=== PATIENT | female | born 1955 | race African-American/Black ===

== ENCOUNTER 2020-03-05 19:37 | Inpatient (IN) | payer BC, MEDICAID ==
[~2020-03-05] VITALS: Ht 172.7 cm; Wt 77.0 kg
[2020-03-05] MEDS ORDERED: SODIUM CHLORIDE 0.9% 1,000 ML IV ONE (20:02)
[2020-03-05] MEDS ORDERED: AZITHROMYCIN 500MG/ 250ML 250 ML IV ONE (20:15)
[2020-03-05] MEDS ORDERED: ONDANSETRON HCL 4 MG/2 ML VIAL IV PRN (23:45)
[2020-03-05] MEDS ORDERED: DEXTROSE (50%) 50ML SYRG IV PRN (23:45)
[2020-03-05] MEDS ORDERED: HYDROcodone-ACET 5/325MG TAB PO PRN (23:45)
[2020-03-05] MEDS ORDERED: MORPHINE SULF INJ 2 MG/ML SYRINGE 1ML IV PRN ×2 (23:45)
[2020-03-05] MEDS ORDERED: ACETAMINOPHEN 325 MG TAB PO PRN (23:45)
[2020-03-05] MEDS ORDERED: DOCUSATE SOD 100 MG CAP PO PRN (23:45)
[2020-03-05] MEDS ORDERED: NITROGLYCERIN 0.4 MG SL TAB SL PRN (23:45)
[2020-03-05] MEDS ORDERED: ACETAMINOPHEN 500 MG TAB PO PRN (23:45)
[2020-03-06 01:35] LABS: Basophils # (auto) 0.1 10 ^3/uL (0-0.2); Basophils % (auto) 1.2 % (0.0-2.0); Eosinophils # (auto) 0 10 ^3/uL (0-0.8); Eosinophils % (auto) 0.5 % (0.0-7.0); Hemoglobin 12.7 g/dL (12.2-16.2); Lymphocytes # (auto) 2.1 10 ^3/uL (0.4-5.4); Lymphocytes % (auto) 22.9 % (10.0-50.0); Mean Corpuscular Hemoglobin 27.4 pg (28.0-32.0); Mean Corpuscular Hgb Conc. 32.7 g/dL (32.0-36.0); Mean Corpuscular Volume 83.9 fL (80.0-100.0); Monocytes # (auto) 0.7 10 ^3/uL (0-1.3); Monocytes % (auto) 7.8 % (0.0-12.0); Neutrophils # (auto) 6.1 10 ^3/uL (1.6-8.6); Neutrophils % (auto) 67.6 % (37.0-80.0); Nucleated Red Blood Cells % 0.1 %; Platelet Count (auto) 480 10^3/uL (140-450); Red Blood Cells 4.64 10^6/uL (4.0-5.20); Red Cell Distribution Width 12.9 % (11.8-14.3)
[2020-03-06 01:47] LABS: Anion Gap 13 (5-15); BUN/Creatinine Ratio 26.7; Blood Urea Nitrogen 28 mg/dL (7-18); Calcium 9.2 mg/dL (8.5-10.1); Carbon Dioxide 25 mmol/L (21-32); Chloride 98 mmol/L (98-107); GFR African American 67 mL/min; GFR Non-African American 56 mL/min; Glucose 143 mg/dL (74-106); Potassium 3.4 mmol/L (3.5-5.1); Sodium 136 mmol/L (136-145)
[2020-03-06 01:50] LABS: Alanine Aminotransferase 46 U/L (13-56); Alkaline Phosphatase 91 U/L (45-117); Aspartate Aminotransferase 47 U/L (15-37); Bilirubin, Total 0.5 mg/dL (0.2-1.0); Total Protein 8.8 g/dL (6.4-8.2)
[2020-03-06] MEDS: ACCU-CHEK COMFORT CURVE STRIP VI SCH ×3 (06:00→17:27)
[2020-03-06] MEDS ORDERED: ALBUTEROL SULF HFA 90MCG INH 200DOSE IN SCH (06:00)
[2020-03-06] MEDS: InsuLIN REG 1unit/0.01ml Soln (100units/ml) SC SCH ×3 (06:00→17:28)
[2020-03-06] MEDS: ASCORBIC ACID 1,000 MG TAB PO SCH (09:09)
[2020-03-06] MEDS: CHOLECALCIFEROL (VITD3) 1,000IU=25mCg TAB PO SCH (09:09)
[2020-03-06] MEDS: DOXYCYCLINE 100 MG TAB/CAP PO SCH ×2 (09:09→22:46)
[2020-03-06] MEDS: ZINC SULFATE 220mg CAP or TAB PO SCH (09:09)
[2020-03-06] MEDS: SODIUM CHLORIDE 0.9% 1,000 ML IV SCH (09:16)
[2020-03-06] MEDS ORDERED: ENOXAPARIN SOD 40 MG/0.4 ML SYRINGE SC SCH (10:00)
[2020-03-06 10:14] LABS: Urine Bacteria NONE SEEN /hpf (None Seen); Urine Blood Negative /uL (Negative); Urine Hyaline Cast FEW /lpf (0 - 2); Urine Specific Gravity 1.021 (1.001-1.035); Urine WBC 1 /hpf (0 - 5)
[2020-03-06 11:20] LABS: Basophils # (auto) 0.1 10 ^3/uL (0-0.2); Eosinophils # (auto) 0.1 10 ^3/uL (0-0.8); Hematocrit 37.7 % (36.0-46.0); Hemoglobin 12.2 g/dL (12.2-16.2); Lymphocytes # (auto) 1.8 10 ^3/uL (0.4-5.4); Lymphocytes % (auto) 26.3 % (10.0-50.0); Mean Corpuscular Hemoglobin 27.8 pg (28.0-32.0); Mean Corpuscular Hgb Conc. 32.4 g/dL (32.0-36.0); Mean Corpuscular Volume 85.8 fL (80.0-100.0); Monocytes # (auto) 0.7 10 ^3/uL (0-1.3); Monocytes % (auto) 9.9 % (0.0-12.0); Neutrophils # (auto) 4.1 10 ^3/uL (1.6-8.6); Neutrophils % (auto) 61.8 % (37.0-80.0); Nucleated Red Blood Cells % 0.2 %; Platelet Count (auto) 450 10^3/uL (140-450); Red Blood Cells 4.39 10^6/uL (4.0-5.20); Red Cell Distribution Width 12.9 % (11.8-14.3); White Blood Cell 6.7 10^3/uL (4.4-10.8)
[2020-03-06 11:35] LABS: INR 1.04 (0.9-1.15); Partial Thromboplastin Time 28.8 sec (23.64-32.05)
[2020-03-06 11:36] LABS: Anion Gap 8 (5-15); Blood Urea Nitrogen 27 mg/dL (7-18); Calcium 9.3 mg/dL (8.5-10.1); Carbon Dioxide 27 mmol/L (21-32); Chloride 98 mmol/L (98-107); Glucose 140 mg/dL (74-106); Sodium 133 mmol/L (136-145)
[2020-03-06 11:45] LABS: Alanine Aminotransferase 50 U/L (13-56); Alkaline Phosphatase 89 U/L (45-117); Aspartate Aminotransferase 66 U/L (15-37); BUN/Creatinine Ratio 26.2; Bilirubin, Total 0.6 mg/dL (0.2-1.0); GFR African American 69 mL/min; GFR Non-African American 57 mL/min; Lactate Dehydrogenase 349 U/L (84-246); Total Protein 8.8 g/dL (6.4-8.2)
[2020-03-06] MEDS ORDERED: MET50T PO (15:35)
[2020-03-06] MEDS ORDERED: LOSA-39 PO (15:35)
[2020-03-06] MEDS ORDERED: VENL-192 PO (15:35)
[2020-03-06] MEDS ORDERED: CHLO25TA22 PO (15:35)
[2020-03-06] MEDS ORDERED: CITA-73 PO (15:35)
[2020-03-06] MEDS ORDERED: GLIP10TA9 PO (15:35)
[2020-03-06] MEDS ORDERED: ASPI-404 PO (15:35)
[2020-03-06] MEDS ORDERED: METF-370 PO (15:35)
[2020-03-06] MEDS ORDERED: ENOXAPARIN SOD 40 MG/0.4 ML SYRINGE SC ONE (16:00)
[2020-03-06] MEDS ORDERED: POTASSIUM CHL 20 Meq TABLET PO ONE (16:15)
[2020-03-06 17:00] VITALS: BP 154/92
[2020-03-06 22:00] VITALS: BP 154/102
[2020-03-06] MEDS: ENOXAPARIN SOD 80 MG/0.8ML SYRINGE SC SCH (22:46)
[2020-03-06] MEDS: METOPROLOL TARTRATE 25 MG TAB PO SCH (22:47)
[2020-03-07] MEDS: ACCU-CHEK COMFORT CURVE STRIP VI SCH ×5 (00:08→23:59)
[2020-03-07] MEDS: hydrALAZINE HCL 20 MG/ML VL IV PRN ×3 (00:08→17:11)
[2020-03-07 01:25] VITALS: BP 146/75
[2020-03-07 05:00] VITALS: BP 160/94
[2020-03-07] MEDS: InsuLIN REG 1unit/0.01ml Soln (100units/ml) SC SCH ×4 (06:10→17:11)
[2020-03-07 06:36] LABS: Albumin 2.7 g/dL (3.4-5.0); Calcium 9.1 mg/dL (8.5-10.1); Magnesium 1.5 mg/dL (1.6-2.6); Potassium 3.8 mmol/L (3.5-5.1)
[2020-03-07 06:40] LABS: BUN/Creatinine Ratio 17.9; Bilirubin, Total 0.5 mg/dL (0.2-1.0)
[2020-03-07 09:00] VITALS: BP 112/75
[2020-03-07] MEDS: SODIUM CHLORIDE 0.9% 1,000 ML IV SCH (09:12)
[2020-03-07] MEDS: ENOXAPARIN SOD 80 MG/0.8ML SYRINGE SC SCH ×2 (09:13→22:22)
[2020-03-07] MEDS: ZINC SULFATE 220mg CAP or TAB PO SCH (09:13)
[2020-03-07] MEDS: DOXYCYCLINE 100 MG TAB/CAP PO SCH ×2 (09:13→22:23)
[2020-03-07] MEDS: METOPROLOL TARTRATE 25 MG TAB PO SCH ×2 (09:13→22:23)
[2020-03-07] MEDS: CHOLECALCIFEROL (VITD3) 1,000IU=25mCg TAB PO SCH (09:13)
[2020-03-07] MEDS: ASCORBIC ACID 1,000 MG TAB PO SCH (09:14)
[2020-03-07 13:00] VITALS: BP 105/60
[2020-03-07 17:00] VITALS: BP 164/97
[2020-03-07] MEDS: MAGNESIUM SULFATE 1GM/100ML 100 ML IV SCH ×2 (17:10→17:12)
[2020-03-07 22:00] VITALS: BP 116/59
[2020-03-08 05:00] VITALS: BP 125/84
[2020-03-08] MEDS: InsuLIN REG 1unit/0.01ml Soln (100units/ml) SC SCH ×4 (05:56→17:40)
[2020-03-08] MEDS: ACCU-CHEK COMFORT CURVE STRIP VI SCH ×3 (05:56→17:40)
[2020-03-08 07:03] LABS: Albumin 2.5 g/dL (3.4-5.0); Potassium 3.5 mmol/L (3.5-5.1)
[2020-03-08 07:08] LABS: Bilirubin, Direct 0.2 mg/dL (0-0.2); Bilirubin, Total 0.4 mg/dL (0.2-1.0); Total Protein 7.5 g/dL (6.4-8.2)
[2020-03-08] MEDS: ZINC SULFATE 220mg CAP or TAB PO SCH (09:31)
[2020-03-08] MEDS: DOXYCYCLINE 100 MG TAB/CAP PO SCH (09:32)
[2020-03-08] MEDS: CHOLECALCIFEROL (VITD3) 1,000IU=25mCg TAB PO SCH (09:32)
[2020-03-08] MEDS: ENOXAPARIN SOD 80 MG/0.8ML SYRINGE SC SCH (09:32)
[2020-03-08] MEDS: ASCORBIC ACID 1,000 MG TAB PO SCH (09:32)
[2020-03-08] MEDS: METOPROLOL TARTRATE 25 MG TAB PO SCH (09:32)
[2020-03-08 09:41] VITALS: BP 150/83
[2020-03-08 12:46] VITALS: BP 98/68
[2020-03-08] MEDS ORDERED: DEX4T PO (14:12)
[2020-03-08] MEDS ORDERED: PANT40TA2 PO (14:12)
[2020-03-08] MEDS ORDERED: DOXY-286 PO (14:12)
[2020-03-08] MEDS ORDERED: ZINC220T6 PO (14:12)
[2020-03-08] MEDS ORDERED: ASCO10003 PO (14:12)
[2020-03-08 16:14] VITALS: BP 98/52
[2020-03-08 16:47] VITALS: BP 165/92
== END 2020-03-08 18:00 | disposition home or self-care (01) | DRG 177 ==
LOC: ER 19:39 → TELE 19:40 → TELE-E-ADS 03-06 14:20
PROVIDERS: ADMIT Hospitalist; ATTEND Internal Medicine
DX: U07.1 COVID-19 (principal); N17.0 Acute kidney failure with tubular necrosis; E11.22 Type 2 diabetes mellitus with diabetic chronic kidney disease; I12.9 Hypertensive chronic kidney disease with stage 1 through stage 4 chronic kidney disease, or unspecified chronic kidney disease; E87.6 Hypokalemia; N18.9 Chronic kidney disease, unspecified; E11.21 Type 2 diabetes mellitus with diabetic nephropathy; I70.0 Atherosclerosis of aorta; F32.9 Major depressive disorder, single episode, unspecified; R79.89 Other specified abnormal findings of blood chemistry; J06.9 Acute upper respiratory infection, unspecified; Z86.73 Personal history of transient ischemic attack (TIA), and cerebral infarction without residual deficits
CPT/HCPCS: 36415; 71045; 80053; 80061; 80076; 81001; 82728; 82962; 83036; 83615; 83735; 83880; 84132; 84443; 84484; 85025; 85379; 85610; 85730; 86141; 87040; 87070; 87804; 87880; 93005; G0378; J1815

== ENCOUNTER 2022-01-19 09:52 | Emergency (ER) | payer OTHER, MEDICAID ==
[~2022-01-19] VITALS: Ht 170.2 cm; Wt 81.6 kg
[~2022-01-19 09:52] MED LIST: ASCO10003 PO; ASPI-543 PO; CHLO25TA2 PO; CITA-73 PO; DOXY-286 PO; GLIP10TA9 PO; LOSA-39 PO; MET50T PO; METF-370 PO; VENL-192 PO; ZINC220T6 PO
[2022-01-19] MEDS ORDERED: ACETAMINOPHEN 500 MG TAB PO ONE (10:45)
[2022-01-19 11:02] LABS: Basophils # (auto) 0.1 10 ^3/uL (0-0.2); Basophils % (auto) 0.7 % (0.0-2.0); Eosinophils # (auto) 0.1 10 ^3/uL (0-0.8); Eosinophils % (auto) 0.8 % (0.0-7.0); Hematocrit 32.9 % (36.0-46.0); Hemoglobin 11.1 g/dL (12.2-16.2); Lymphocytes # (auto) 2.2 10 ^3/uL (0.4-5.4); Lymphocytes % (auto) 27.2 % (10.0-50.0); Mean Corpuscular Hemoglobin 28.7 pg (28.0-32.0); Mean Corpuscular Hgb Conc. 33.8 g/dL (32.0-36.0); Mean Corpuscular Volume 84.9 fL (80.0-100.0); Monocytes # (auto) 0.7 10 ^3/uL (0-1.3); Neutrophils # (auto) 5.2 10 ^3/uL (1.6-8.6); Neutrophils % (auto) 63.3 % (37.0-80.0); Nucleated Red Blood Cells % 0.1 %; Red Blood Cells 3.88 10^6/uL (4.0-5.20); Red Cell Distribution Width 12.4 % (11.8-14.3); White Blood Cell 8.3 10^3/uL (4.4-10.8)
[2022-01-19 11:29] LABS: Albumin 3.3 g/dL (3.4-5.0); Calcium 9.3 mg/dL (8.5-10.1); Magnesium 2.4 mg/dL (1.6-2.6); Potassium 3.8 mmol/L (3.5-5.1)
[2022-01-19 11:33] LABS: BUN/Creatinine Ratio 24.8; Bilirubin, Total 0.4 mg/dL (0.2-1.0)
[2022-01-19 12:05] VITALS: BP 100/58
[2022-01-19] MEDS ORDERED: ACET-1080 PO (12:55)
[2022-01-19 13:21] LABS: Urine Bacteria MANY /hpf (None Seen); Urine Blood Negative /uL (Negative); Urine Hyaline Cast FEW /lpf (0 - 2); Urine Mucus FEW (None Seen); Urine Specific Gravity 1.015 (1.001-1.035); Urine WBC 5 /hpf (0 - 5)
== END 2022-01-19 13:04 | disposition home or self-care (01) ==
LOC: ER 09:52
DX: R51.9 Headache, unspecified (principal); M48.02 Spinal stenosis, cervical region; I12.9 Hypertensive chronic kidney disease with stage 1 through stage 4 chronic kidney disease, or unspecified chronic kidney disease; E11.22 Type 2 diabetes mellitus with diabetic chronic kidney disease; N18.9 Chronic kidney disease, unspecified; Z86.73 Personal history of transient ischemic attack (TIA), and cerebral infarction without residual deficits; Z79.82 Long term (current) use of aspirin; Z79.899 Other long term (current) drug therapy; Z79.2 Long term (current) use of antibiotics
CPT/HCPCS: 36415; 70450; 72125; 80053; 81001; 83735; 84484; 85025; 93005

== ENCOUNTER → 2023-09-24 | Outpatient (CLI) | payer OTHER ==
[~2023-09-24] MED LIST changes: +ACET-1080 PO; -LOSA-39 PO; +LOSA100T58 PO
[2023-09-24 10:55] LABS: Basophils # (auto) 0 10 ^3/uL (0-0.2); Basophils % (auto) 0.5 % (0.0-2.0); Eosinophils # (auto) 0.1 10 ^3/uL (0-0.8); Eosinophils % (auto) 0.9 % (0.0-7.0); Hematocrit 35.3 % (36.0-46.0); Hemoglobin 11.5 g/dL (12.2-16.2); Lymphocytes % (auto) 30.7 % (10.0-50.0); Mean Corpuscular Hemoglobin 29.3 pg (28.0-32.0); Mean Corpuscular Hgb Conc. 32.7 g/dL (32.0-36.0); Mean Corpuscular Volume 89.6 fL (80.0-100.0); Monocytes # (auto) 0.7 10 ^3/uL (0-1.3); Monocytes % (auto) 7.6 % (0.0-12.0); Neutrophils # (auto) 5.9 10 ^3/uL (1.6-8.6); Neutrophils % (auto) 60.3 % (37.0-80.0); Red Blood Cells 3.94 10^6/uL (4.0-5.20); Red Cell Distribution Width 12.5 % (11.8-14.3); White Blood Cell 9.8 10^3/uL (4.4-10.8)
[2023-09-24 11:04] LABS: Urine Blood Negative /uL (Negative); Urine Clarity Clear (Clear); Urine Color Yellow (Yellow); Urine Protein, UAD Negative (Negative); Urine Specific Gravity 1.011 (1.001-1.035); Urine Urobilinogen Normal (Negative); Urine pH 7.5 (5.0-8.0)
[2023-09-24 11:26] LABS: Alanine Aminotransferase 12 U/L (7-40); Albumin 4.4 g/dL (3.2-4.8); Alkaline Phosphatase 105 U/L (46-116); Anion Gap 7 (5-15); Aspartate Aminotransferase 17 U/L (13-40); BUN/Creatinine Ratio 13.4 (10.0-20.0); Blood Urea Nitrogen 11 mg/dL (9-23); Calcium 9.8 mg/dL (8.5-10.1); Carbon Dioxide 31 mmol/L (20-30); Chloride 101 mmol/L (98-107); Cholesterol 144 mg/dL (< 200); Glucose 133 mg/dL (74-106); HDL Cholesterol 57 mg/dL (40-59); LDL Cholesterol 67 mg/dL (< 100); Potassium 3.4 mmol/L (3.5-5.1); Sodium 139 mmol/L (136-145); Triglycerides 39 mg/dL (< 150)
[2023-09-24 11:27] LABS: Bilirubin, Total 0.4 mg/dL (0.2-1.0); Total Protein 7.3 g/dL (5.7-8.2)
[2023-09-24 11:39] LABS: Uric Acid 6.1 mg/dL (3.1-7.8)
== END | disposition home or self-care (01) ==
LOC: LAB 10:16
PROVIDERS: ATTEND Family Medicine
DX: Z12.11 Encounter for screening for malignant neoplasm of colon (principal); Z00.01 Encounter for general adult medical examination with abnormal findings; E11.65 Type 2 diabetes mellitus with hyperglycemia; E11.42 Type 2 diabetes mellitus with diabetic polyneuropathy; I10 Essential (primary) hypertension; E78.5 Hyperlipidemia, unspecified; F33.9 Major depressive disorder, recurrent, unspecified; F41.1 Generalized anxiety disorder
CPT/HCPCS: 36415; 80053; 80061; 81003; 82043; 82270; 83036; 84443; 84550; 85025

== ENCOUNTER → 2024-03-12 | Outpatient (CLI) | payer MEDICAID ==
[~2024-03-12] MED LIST changes: +LOSA-535 PO; -LOSA100T58 PO
== END | disposition home or self-care (01) ==
LOC: XYW 10:20
PROVIDERS: ATTEND Student in an Organized Health Care Education/Training Program
DX: I70.203 Unspecified atherosclerosis of native arteries of extremities, bilateral legs (principal); I77.9 Disorder of arteries and arterioles, unspecified
CPT/HCPCS: 93925

== ENCOUNTER → 2024-06-06 | Outpatient (CLI) | payer MEDICAID ==
[~2024-06-06] MED LIST changes: +APIX2.5T PO; +ATOR10TA52 PO; +CALC0.0021 EX; +CLOB0.055 TOP; +CLOP75TA28 PO; +EMPA1TAB3 PO; +GABA-1250 PO; +KETO2CRE4 TOP
--- NOTE | 2024-06-06 13:03 | DVHSR ---
APPROVED REPORT EXAM: Two-dimensional and M-mode echocardiogram with Doppler and color Doppler. INDICATION Syncope RISK FACTORS Height: 67, Weight: 165 Diabetes DIMENSIONS LVDd2.5 (3.8-5.7cm)LA (2D)3.3 (1.9-4.0cm)Aortic Root3.4 (2.0-3.7cm) LVDs1.5 (2.5-4.0cm)LA (MM) (1.9-4.0cm)Aortic Cusp Exc1.1 (1.5-2.0cm) EF (%) 71.8 (55-70%)Rt. Atrium (1.9-4.0cm)Asc. Aorta cm Mitral Valve MitralMitral Stenosis E wave0.90m/sMV Mean GR.mmHg A wave1.28m/sMV Peak GR.mmHg E/A ratio0.72D MVAcm2 DECEL [id number] 1/2 Timems Aortic Valve Aortic ValveAortic Stenosis V11.12m/Stacy Mean GR.4mmHg V21.29m/Stacy Peak GR.7mmHg LVOT Diameter1.4 (1.8-2.4cm)Doppler AVA1.34cm2 Pulmonic Valve V20.79m/s Tricuspid Valve [id number] Other Information Technically limited study due to body habitus. Conclusion Technically good study. Sinus rhythm. [id number] aortic root enlargement. An echodensity at the level of the left coronary cusps is noted. Mild thickening of the right daven[place] ry cusp. There appears to be notable limitation in mobility of the left coronary cusp with mild calc ification.. Mild calcification of the mitral valve. Adequate excursion of the leaflets. Left ventricular function is preserved at 60% with normal RV function. Dopplers unremarkable. No pericardial effusion masses or vegetations.
== END | disposition home or self-care (01) ==
LOC: XYW 10:00
PROVIDERS: ATTEND Internal Medicine
DX: I08.0 Rheumatic disorders of both mitral and aortic valves (principal); E11.9 Type 2 diabetes mellitus without complications
CPT/HCPCS: 93306

== ENCOUNTER → 2024-07-09 | Outpatient (CLI) | payer MEDICAID ==
[~2024-07-09] MED LIST changes: -APIX2.5T PO; -ATOR10TA52 PO; -CALC0.0021 EX; -CLOB0.055 TOP; -CLOP75TA28 PO; -EMPA1TAB3 PO; -GABA-1250 PO; -KETO2CRE4 TOP
[2024-07-09 11:31] LABS: Alanine Aminotransferase 14 U/L (7-40); Alkaline Phosphatase 109 U/L (46-116); Anion Gap 5 (5-15); BUN/Creatinine Ratio 19.4 (10.0-20.0); Blood Urea Nitrogen 19 mg/dL (9-23); Calcium 9.4 mg/dL (8.7-10.4); Carbon Dioxide 25 mmol/L (20-31); Chloride 106 mmol/L (98-107); Glucose 135 mg/dL (74-106); LDL Cholesterol 61 mg/dL (< 100); Potassium 4.4 mmol/L (3.5-5.1); Sodium 136 mmol/L (136-145); Triglycerides 57 mg/dL (< 150)
[2024-07-09 11:32] LABS: Albumin 4.1 g/dL (3.2-4.8); Aspartate Aminotransferase 11 U/L (13-40); Bilirubin, Total 0.3 mg/dL (0.2-1.0); Cholesterol 132 mg/dL (< 200); HDL Cholesterol 53 mg/dL (40-59)
[2024-07-09 11:48] LABS: Creatinine, Urine 32.78 mg/dL (30.0-125.0)
[2024-07-09 11:51] LABS: Micro Albumin < 3.0 mg/L (<30.0)
== END | disposition home or self-care (01) ==
LOC: LAB 10:36
PROVIDERS: ATTEND Family Medicine
DX: I12.9 Hypertensive chronic kidney disease with stage 1 through stage 4 chronic kidney disease, or unspecified chronic kidney disease (principal); E11.22 Type 2 diabetes mellitus with diabetic chronic kidney disease; N18.9 Chronic kidney disease, unspecified; E78.2 Mixed hyperlipidemia; E11.65 Type 2 diabetes mellitus with hyperglycemia
CPT/HCPCS: 36415; 80053; 80061; 82043; 82570; 83036

== ENCOUNTER → 2024-07-15 | Outpatient (CLI) | payer MEDICAID ==
[~2024-07-15] VITALS: Ht 170.2 cm; Wt 77.1 kg
[2024-07-15] MEDS: REGADENOSON 0.4 MG/5 ML SYRG IV ONE ×2 (10:02→10:08)
--- NOTE | 2024-07-15 11:28 | DVHSR ---
APPROVED REPORT Exam: Nuclear Stress Test Indication: NEAR SYNCOPE Stress Tech: Judit Gross BMI: 0 Medical History Medical History: Bilateral Femoral Artery Stenosis, TIA, DM, HTN, Former smoker Stress Test Details Stress Test: Pharmacologic stress testing performed using 0.4 mg of regadenoson per 5 mL given IV ov er 10 seconds. HR Resting HR: 57 bpmMax Heart Rate (APMHR): 150.361686 bpm Max HR Achieved: 75 bpmTarget HR (85% APMHR): 127.292411 bpm % of APMHR: 50.00 Recovery HR: 64 bpm BP Resting BP: 137/75 mmHg Recovery BP: 145/74 mmHg ECG Resting ECG: Sinus Bradycardia Clinical Reason for Termination: Completed protocol Stress ECG Conclusion Resting ECG showed normal normal sinus rhythm. At peak stress level no dynamic EKG changes was noted to suggest ischemia. Resting images shows near homogeneous uptake of radioactive tracer throughout the myocardium without evidence of myocardial infarction. Stress images shows normal homogeneous uptake of radioactive tracer throughout the myocardium without evidence of myocardial ischemia. Well-preserved left ventricular systolic function is 77%. Impression: Negative stress test for ischemia, low risk study. NM EXAM: Myocardial Perfusion REST/STRESS Imaging Protocol: Rest Tc-99m/Stress Tc-99m 1 day Resting Data Rest SPECT myocardial perfusion imaging was performed in supine position 60 minutes following the int ravenous injection of 11.9 mCi of Tc-99m Sestamibi. Time of rest injection: 0900 Time of rest imagin Administration Route: IV Administration Site: Left AC Pharmacologic Stress Pharmacologic stress test was performed by injecting Regadenoson 0.4 mg IV push followed by the intra venous injection of 35 mCi of Tc-99m Sestamibi. Time of stress injection: 1009 Time of stress imagin Administration Route: IV Administration Site: Left AC Gated Stress SPECT was performed 60 minutes after stress injection. The images were gated to evaluate regional wall motion and calculate left ventricular ejection fracti on. Stress only was performed in the Supine position. Nuclear Conclusion ECG Findings: negative for ischemia Clinical Findings: negative for ischemia Nuclear Findings: negative for ischemia Exercise Capacity: not assessed Left Ventricular Function: normal Risk Study: low Resting ECG showed normal normal sinus rhythm. At peak stress level no dynamic EKG changes was noted to suggest ischemia. Resting images shows near homogeneous uptake of radioactive tracer throughout the myocardium without evidence of myocardial infarction. Stress images shows normal homogeneous uptake of radioactive tracer throughout the myocardium without evidence of myocardial ischemia. Well-preserved left ventricular systolic function is 77%. Impression: Negative stress test for ischemia, low risk study.
== END | disposition home or self-care (01) ==
LOC: XYW 08:35
PROVIDERS: ATTEND Internal Medicine
DX: R55 Syncope and collapse (principal); I73.9 Peripheral vascular disease, unspecified; E11.9 Type 2 diabetes mellitus without complications; I10 Essential (primary) hypertension; Z86.73 Personal history of transient ischemic attack (TIA), and cerebral infarction without residual deficits; Z87.891 Personal history of nicotine dependence
CPT/HCPCS: 78452; 93017; A9500; J2785

== ENCOUNTER 2024-07-30 06:50 | Inpatient (IN) | payer MEDICAID ==
[2024-07-29 12:16] LABS: Basophils # (auto) 0 10 ^3/uL (0-0.2); Basophils % (auto) 0.3 % (0.0-2.0); Eosinophils # (auto) 0.1 10 ^3/uL (0-0.8); Eosinophils % (auto) 0.5 % (0.0-7.0); Hematocrit 37.5 % (36.0-46.0); Hemoglobin 12.1 g/dL (12.2-16.2); Lymphocytes % (auto) 28.3 % (10.0-50.0); Mean Corpuscular Hemoglobin 28.5 pg (28.0-32.0); Mean Corpuscular Hgb Conc. 32.2 g/dL (32.0-36.0); Mean Corpuscular Volume 88.5 fL (80.0-100.0); Monocytes # (auto) 0.7 10 ^3/uL (0-1.3); Monocytes % (auto) 6.7 % (0.0-12.0); Neutrophils # (auto) 6.7 10 ^3/uL (1.6-8.6); Neutrophils % (auto) 64.2 % (37.0-80.0); Platelet Count (auto) 276 10^3/uL (140-450); Red Blood Cells 4.24 10^6/uL (4.0-5.20); Red Cell Distribution Width 13.3 % (11.8-14.3); White Blood Cell 10.5 10^3/uL (4.4-10.8)
[2024-07-29 12:21] LABS: INR 0.97 (0.9-1.15); Partial Thromboplastin Time 26.5 SEC (24.5-34.5); Prothrombin Time 10.3 sec (9.3-11.8)
[2024-07-29 12:36] LABS: Alanine Aminotransferase 10 U/L (7-40); Albumin 4.3 g/dL (3.2-4.8); Alkaline Phosphatase 101 U/L (46-116); Anion Gap 8 (5-15); Aspartate Aminotransferase 13 U/L (13-40); Blood Urea Nitrogen 18 mg/dL (9-23); Calcium 10.6 mg/dL (8.7-10.4); Carbon Dioxide 28 mmol/L (20-31); Chloride 102 mmol/L (98-107); Glucose 98 mg/dL (74-106); Potassium 4.2 mmol/L (3.5-5.1); Sodium 138 mmol/L (136-145)
[2024-07-29 12:37] LABS: Bilirubin, Total 0.4 mg/dL (0.2-1.0); Total Protein 7.3 g/dL (5.7-8.2)
[2024-07-30] VITALS (21 sets, daily range): BP systolic 92–193; BP diastolic 49–90; PULSE 55–67; RESP 12–18; TEMP 97.4–97.5; O2SAT 93–99
[~2024-07-30] VITALS: Ht 170.2 cm; Wt 78.9 kg
[~2024-07-30 06:50] MED LIST changes: -ASCO10003 PO; +ATOR10TA52 PO; +CALC0.0021 EX; +CLOB0.055 TOP; -DOXY-286 PO; +EMPA1TAB3 PO; +GABA-1250 PO; +KETO2CRE4 TOP; -ZINC220T6 PO
[2024-07-30] MEDS: IODIXANOL 320MG/ML 100ML BTL IV ONE ×4 (07:22→10:20)
[2024-07-30] MEDS: fentaNYL CITRATE 100 MCG/2 ML VL ONE (08:57)
[2024-07-30] MEDS: ANGIOMAX 250 MG VIAL IV ONE ×2 (08:57→10:15)
[2024-07-30] MEDS: MIDAZOLAM HCL 2MG/2ML 2ml VIAL (1mg/ml) ONE (08:58)
[2024-07-30] MEDS: LIDOCAINE 2%HCL (LOCAL ANESTH.) INJ 20ML MDV ONE ×2 (08:58→10:35)
[2024-07-30] MEDS: SODIUM CHL 0.9% 50 ML ONE ×2 (08:58→10:15)
[2024-07-30] MEDS: GELATIN 1 SPONGE SIZE 50 TOP ONE (10:20)
[2024-07-30] MEDS ORDERED: SOD CHL 0.45% 1,000 ML IV SCH (11:15)
--- NOTE | 2024-07-30 11:28 | DVHOP2 ---
Operative Report - 2 Report Details Date: 07/30/24 Preop Diagnosis: Peripheral vascular disease Postop Diagnosis: Peripheral vascular disease Surgeon: Zelda Jo MD Anesthesiologist: Conscious sedation Anesthesia: Mac, Local Consent: The patient was informed of the risks and benefits of the procedure. These include but are not limited to complications of anesthesia, postoperative infection, incomplete relief of symptoms, recurrence of symptoms, damage to blood vessels, nerves and tendons, deep venous thrombosis, pulmonary embolism and possible need for repeat surgery in the future. Complications: No complications Estimated Blood Loss: 5 cc Findings: Severe peripheral vascular disease Indications for Surgery: Claudication Name of Procedure Performed Peripheral angiogram for evaluation of the lower extremities. Attempted angioplasty of chronic total occlusion of right common femoral artery. Procedure Details Procedure Details: Prior local anesthesia with 2% lidocaine to the left groin full informed consent obtained patient was prepped and draped in usual fashion followed by placement of a six [place] sheath under angiographic and ultrasound guidance. We then performed an angiographic evaluation of the left lower extremity to the level of the ankle. We know already complete occlusion at the tibioperoneal trunk with the collateralization to the distal anterior tibial artery and posterior tibial artery. This was followed by placement of a angled rim catheter into the contralateral right iliac and angiographic evaluation of the right iliac and c ommon femoral artery. Noted occlusion of the proximal right femoral artery along side occlusion of the origin of the superficial femoral artery and profunda with reconstitution of flow normal the superficial femoral artery its mid section and of the profunda via collateralization from the circumflex branches. There was an occlusion at the distal SFA/proximal popliteal. Collateralization faintly into the distal peroneal and posterior tibial distally.. There was flow into the peroneal artery in the right lower extremity on a delayed image with digital subtraction. We then placed a destination catheter over a Advantage wire and then a trailblazer in an effort to gain access right superficial femoral artery however we were not able to units of the true lumen. After about 30 minutes of fluoro and non 50 cc of contrast via border of the procedure. We will bring her back for a right transradial approach. Impression: severe peripheral vascular disease involving the right superficial femoral artery common femoral artery and profunda. Distal left popliteal. Right tibioperoneal trunk occlusion with reconstitution of flow to the peroneal below the knee. Reconstitution of flow to the anterior tibial on the left lower extremity below the knee. Recommendations: We will attempt a retrograde approach on the right peroneal artery subsequent to IV hydration and 24 hour pause. Condition Fair Disposition Still a Patient Date of Service: Jul 30, 2024 Billing Provider: ZELDA JO Sr., MD Cardiology Common Codes: [id number] INP/OBS CARE (High) Peripheral Procedures Codes: [id number] W/TRANS ANGPLASTY, 79722- ANGIOPLASTY W/IN SAME VESSEL ZELDA JO Sr., MD Jul 30, 2024 11:28
[2024-07-30] MEDS: SOD CHL 0.45% 1,000 ML IV SCH (12:34)
[2024-07-30] MEDS: cloNIDine HCL 0.1 MG TAB PO ONE (12:45)
[2024-07-30] MEDS ORDERED: DEXTROSE (50%) 50ML SYRG IV PRN (15:15)
[2024-07-30] MEDS ORDERED: ONDANSETRON HCL 4 MG/2 ML VIAL IV PRN (15:15)
--- NOTE | 2024-07-30 15:19 | DVHHP2 ---
Review of Systems Allergies: Coded Allergies: NO KNOWN ALLERGIES (Unverified , 07/29/24) Medications Current Medications Medications Dose Ordered Sig/Miller Route Start Time Stop Time Status Last Admin Dose Admin Sodium Chloride 1,000 ml @ 75 mls/hr [id number] IV 07/30/24 11:30 07/30/24 12:34 75 MLS/HR Exam Vital Signs Vital Signs Date Time Temp Pulse Resp B/P (MAP) Pulse Ox O2 Delivery O2 Flow Rate FiO2 07/30/24 12:45 193/90 Labs/Xrays Labs Test 07/29/24 11:36 Range/Units White Blood Count 10.5 4.4-10.8 10^3/uL Red Blood Count 4.24 4.0-5.20 10^6/uL Hemoglobin 12.1 L 12.2-16.2 g/dL Hematocrit 37.5 36.0-46.0 % Mean Corpuscular Volume 88.5 80.0-100.0 fL Mean Corpuscular Hemoglobin 28.5 28.0-32.0 pg Mean Corpuscular Hemoglobin Concent 32.2 32.0-36.0 g/dL Red Cell Distribution Width 13.3 11.8-14.3 % Platelet Count 276 140-450 10^3/uL Mean Platelet Volume 7.9 6.9-10.8 fL Neutrophils (%) (Auto) 64.2 37.0-80.0 % Lymphocytes (%) (Auto) 28.3 10.0-50.0 % Monocytes (%) (Auto) 6.7 0.0-12.0 % Eosinophils (%) (Auto) 0.5 0.0-7.0 % Basophils (%) (Auto) 0.3 0.0-2.0 % Neutrophils # (Auto) 6.7 1.6-8.6 10 ^3/uL Lymphocytes # (Auto) 3.0 0.4-5.4 10 ^3/uL Monocytes # (Auto) 0.7 0-1.3 10 ^3/uL Eosinophils # (Auto) 0.1 0-0.8 10 ^3/uL Basophils # (Auto) 0 0-0.2 10 ^3/uL Nucleated Red Blood Cells 0.0 % Prothrombin Time 10.3 9.3-11.8 sec Prothrombin Time INR 0.97 0.9-1.15 Activated Partial Thromboplast Time 26.5 24.5-34.5 SEC Sodium Level 138 136-145 mmol/L Potassium Level 4.2 3.5-5.1 mmol/L Chloride Level 102 98-107 mmol/L Carbon Dioxide Level 28 20-31 mmol/L Anion Gap 8 5-15 Blood Urea Nitrogen 18 9-23 mg/dL Creatinine 1.06 H 0.550-1.02 mg/dL Glomerular Filtration Rate Calc 57 >90 mL/min BUN/Creatinine Ratio 17.0 10.0-20.0 Serum Glucose 98 74-106 mg/dL Calcium Level 10.6 H 8.7-10.4 mg/dL Total Bilirubin 0.4 0.2-1.0 mg/dL Aspartate Amino Transferase (AST) 13 13-40 U/L Alanine Aminotransferase (ALT) 10 7-40 U/L Alkaline Phosphatase 101 46-116 U/L Total Protein 7.3 5.7-8.2 g/dL Albumin 4.3 3.2-4.8 g/dL Assessment/Plan Assessment/Plan see dictated note Plan discussed with: Patient My Orders Orders - KRYSTINA BALL MD Procedure Category Date Status Time Consistent DIET 07/30/24 Transmitted Carb(Ccho)Diabetes Dinner Glucose Blood PHA 07/30/24 Logged (Accu-Chek Comfort 17:00 Insulin R (Human) PHA 07/30/24 Logged (Insulin R) 17:00 Dextrose 50% Syringe PHA 07/30/24 Logged 15:15 Aspirin Tablet PHA 07/31/24 Verified 10:00 Atorvastatin (Lipitor) PHA 07/30/24 Verified 22:00 Venlafaxine Xr PHA 07/30/24 Verified (Effexor Xr) 22:00 Acetaminophen Tablet PHA 07/30/24 Verified (Tylenol Tablet) 15:15 Ondansetron Hcl PHA 07/30/24 Verified (Zofran) 15:15 Date of Service: Jul 30, 2024 Billing Provider: KRYSTINA BALL MD Common Visit Codes: [id number] INP/OBS CARE (HIGH) KRYSTINA BALL MD Jul 30, 2024 15:19
--- NOTE | 2024-07-30 15:31 | DVHHP ---
HISTORY OF PRESENT ILLNESS: The patient is a 68-year-old lady who was admitted for peripheral vascular disease and peripheral angiography and attempted angioplasty of total occlusion of right common femoral artery. The patient's access, however, was difficult and the procedure has been abandon for now with reattempt in the next day or two. The patient denies any pain at this time. No chest pain or shortness of breath. No nausea or vomiting. REVIEW OF SYSTEMS: Review of rest of systems is otherwise currently negative. PAST MEDICAL HISTORY: Significant for diabetes, hypertension, hyperlipidemia, and previous history of CVA as well as depression. MEDICATIONS: The patient takes Lipitor, aspirin, chlorthalidone, Jardiance, gabapentin, glipizide, losartan, metformin, metoprolol, and Effexor. ALLERGIES: No known drug allergies. SOCIAL HISTORY: The patient lives with family. FAMILY HISTORY: Negative. PHYSICAL EXAMINATION: GENERAL: The patient is awake, alert. VITAL SIGNS: Temperature of 98.6, pulse 72 per minute, blood pressure 180/90. SHEENT: Unremarkable. NECK: There is no JVD, no pedal edema. LUNGS: Equal bilaterally. No added sounds. CARDIOVASCULAR: S1, S2 are regular. There are no murmurs. ABDOMEN: Soft. There is no organomegaly. NEUROLOGIC: Nonfocal. MUSCULOSKELETAL: Normal. ASSESSMENT AND PLAN: * Peripheral vascular disease with right femoral artery occlusion. The patient rescheduled for angiogram and attempted angioplasty. * Diabetes mellitus for which she will be placed on sliding scale insulin. * Hypertension. * Hyperlipidemia. * History of cerebrovascular accident. * History of depression. MD HARMONY Brambila/KORTNEY TID: [id number] RECEIPT: [id number]
[2024-07-30] MEDS: ACCU-CHEK COMFORT CURVE STRIP VI SCH (17:38)
[2024-07-30] MEDS: InsuLIN REG 1unit/0.01ml Soln (100units/ml) SC SCH (18:11)
[2024-07-30] MEDS: ACETAMINOPHEN 500 MG TAB or CAP PO PRN (21:51)
[2024-07-30] MEDS: VENLAFAXINE HCL 37.5mg XR cap PO SCH (21:51)
[2024-07-30] MEDS: ATORVASTATIN 20 MG TAB PO SCH (21:51)
[2024-07-30] MEDS: METOPROLOL TARTRATE 25 MG TAB PO SCH (21:52)
[2024-07-31] VITALS (8 sets, daily range): BP systolic 88–127; BP diastolic 56–85; PULSE 61–82; RESP 16–20; TEMP 97.6–98.2; O2SAT 95–99
[2024-07-31 04:57] LABS: Urine Bacteria None Seen /hpf (None Seen)
[2024-07-31 05:25] LABS: Urine Blood Negative /uL (Negative); Urine Clarity Clear (Clear); Urine Color Colorless (Yellow); Urine Protein, UAD Negative (Negative); Urine Specific Gravity 1.016 (1.001-1.035); Urine Urobilinogen Normal (Negative); Urine WBC 15 /hpf (0 - 5)
[2024-07-31 07:28] LABS: Basophils # (auto) 0 10 ^3/uL (0-0.2); Basophils % (auto) 0.4 % (0.0-2.0); Eosinophils # (auto) 0.1 10 ^3/uL (0-0.8); Eosinophils % (auto) 0.9 % (0.0-7.0); Hematocrit 36.6 % (36.0-46.0); Hemoglobin 11.9 g/dL (12.2-16.2); Lymphocytes # (auto) 2.6 10 ^3/uL (0.4-5.4); Lymphocytes % (auto) 31.4 % (10.0-50.0); Mean Corpuscular Hgb Conc. 32.4 g/dL (32.0-36.0); Mean Corpuscular Volume 89.6 fL (80.0-100.0); Monocytes % (auto) 11.7 % (0.0-12.0); Neutrophils # (auto) 4.6 10 ^3/uL (1.6-8.6); Neutrophils % (auto) 55.6 % (37.0-80.0); Nucleated Red Blood Cells % 0.1 %; Platelet Count (auto) 234 10^3/uL (140-450); Red Blood Cells 4.09 10^6/uL (4.0-5.20); Red Cell Distribution Width 13.5 % (11.8-14.3); White Blood Cell 8.2 10^3/uL (4.4-10.8)
[2024-07-31 07:55] LABS: Alanine Aminotransferase 11 U/L (7-40); Alkaline Phosphatase 88 U/L (46-116); Anion Gap 9 (5-15); Aspartate Aminotransferase 17 U/L (13-40); BUN/Creatinine Ratio 13.4 (10.0-20.0); Bilirubin, Total 0.5 mg/dL (0.2-1.0); Blood Urea Nitrogen 13 mg/dL (9-23); Carbon Dioxide 24 mmol/L (20-31); Glucose 102 mg/dL (74-106); Total Protein 6.4 g/dL (5.7-8.2)
[2024-07-31 08:06] LABS: Calcium 8.5 mg/dL (8.7-10.4); Chloride 105 mmol/L (98-107); Potassium 3.9 mmol/L (3.5-5.1); Sodium 138 mmol/L (136-145)
--- NOTE | 2024-07-31 09:54 | DVHPN2 ---
Progress Note Date Seen: Jul 31, 2024 Medical Necessity Reason Pt with a Central, PICC or Fol: No Subjective Patient reports: No new complaints Review of Systems: HEENT:Normal, CVS:Normal, RESPIRATORY:Normal, GI:Normal, :Normal, MSK:Normal, NEURO:Normal Objective vital signs Vital Sign Date Time Temp Pulse Resp B/P (MAP) Pulse Ox O2 Delivery O2 Flow Rate FiO2 07/31/24 08:50 97.7 67 16 91/68 (76) 98 97.7 07/30/24 20:00 Room Air* 0 21 Total Intake and Output 07/30/24 07/30/24 07/31/24 15:00 23:00 07:00 Intake Total 200 ml 1065 ml Output Total 250 ml Balance 200 ml 815 ml medications Current Medications Medications Dose Ordered Sig/Miller Route Start Time Stop Time Status Last Admin Dose Admin Sodium Chloride 1,000 ml @ 75 mls/hr [id number] IV 07/30/24 11:30 07/31/24 05:15 75 MLS/HR Diagnostic Test (Pha) 1 strip ACHS 07/30/24 17:00 07/31/24 06:20 1 STRIP Insulin Human Regular ACHS SC 07/30/24 17:00 07/30/24 22:02 2 UNITS Dextrose 50 ml UD PRN IV 07/30/24 15:15 Aspirin 81 mg DAILY PO 07/31/24 10:00 Atorvastatin Calcium 20 mg HS PO 07/30/24 22:00 07/30/24 21:51 20 MG Venlafaxine HCl 37.5 mg BID PO 07/30/24 22:00 07/30/24 21:51 37.5 MG Acetaminophen 500 mg Q6HP PRN PO 07/30/24 15:15 07/30/24 21:51 500 MG Ondansetron HCl 4 mg Q6HPRN PRN IV 07/30/24 15:15 Losartan Potassium 50 mg DAILY PO 07/31/24 10:00 Metoprolol Tartrate 25 mg BID PO 07/30/24 22:00 07/30/24 21:52 25 MG Gabapentin 300 mg DAILY PO 07/31/24 10:00 Examination: GENERAL:Normal, HEENT:Normal, NECK:Normal, LUNGS:Normal, CVS:Normal, ABDOMEN:Normal, MSK:Normal, SKIN:Normal, NEURO:Normal, :Normal laboratory and microbiology Laboratory Tests 07/31/24 06:29 Test 07/31/24 06:29 Range/Units Serum Glucose 102 74-106 mg/dL Problem List/Assessment/Plan Problem List/Assessment/Plan * Peripheral vascular disease with right femoral artery occlusion. The patient rescheduled for angiogram and attempted angioplast in am * Diabetes mellitus for which she will be placed on sliding scale insulin. * Hypertension: adjust meds * Hyperlipidemia. * History of cerebrovascular accident. * History of depression. advance care planning- full code- time spent 19 mins Plan discussed with: Patient My Orders My Orders Orders - KRYSTINA BALL MD Procedure Category Date Status Time Consistent DIET 07/30/24 Transmitted Carb(Ccho)Diabetes Dinner Glucose Blood PHA 07/30/24 In Process (Accu-Chek Comfort 17:00 Insulin R (Human) PHA 07/30/24 In Process (Insulin R) 17:00 Dextrose 50% Syringe PHA 07/30/24 In Process 15:15 Aspirin Tablet PHA 07/31/24 In Process 10:00 Atorvastatin (Lipitor) PHA 07/30/24 In Process 22:00 Venlafaxine Xr PHA 07/30/24 In Process (Effexor Xr) 22:00 Acetaminophen Tablet PHA 07/30/24 In Process (Tylenol Tablet) 15:15 Ondansetron Hcl PHA 07/30/24 In Process (Zofran) 15:15 Gabapentin Capsule PHA 07/31/24 In Process (Neurontin Capsule) 10:00 Losartan Tablet PHA 07/31/24 In Process (Cozaar Tablet) 10:00 Metoprolol Tartrate PHA 07/30/24 In Process Tablet (Lopressor Ta 22:00 Npo After Midnight DIET 07/31/24 Transmitted Lunch Date of Service: Jul 31, 2024 Billing Provider: KRYSTINA BALL MD Common Visit Codes: [id number] INP/OBS CARE(HIGH) Secondary Visit Codes: [id number] CARE PLAN 30 MINUTES KRYSTINA BALL MD Jul 31, 2024 09:54
[2024-07-31] MEDS ORDERED: LOSARTAN POTASSIUM 50 MG TAB PO SCH (10:00)
[2024-07-31] MEDS: GABAPENTIN 300 MG CAP PO SCH (10:17)
[2024-07-31] MEDS: ASPirin 81 mg TAB PO SCH (10:30)
[2024-08-01] VITALS (7 sets, daily range): BP systolic 112–160; BP diastolic 65–89; PULSE 66–107; RESP 18–20; TEMP 97.2–97.9; O2SAT 94–100
--- NOTE | 2024-08-01 10:34 | DVHPN2 ---
Subjective Continue to complain of intermittent claudications Reviewed: Care Plan, H&P, Labs, Medications, Previous Orders, Radiology, Other (Consultation) Changes from previous H/P or p: No Changes Objective Vitals Vital Signs Date Time Temp Pulse Resp B/P (MAP) Pulse Ox O2 Delivery O2 Flow Rate FiO2 08/01/24 10:00 71 113/65 08/01/24 05:00 97.7 18 100 97.7 07/31/24 20:00 Room Air* 0 21 Intake/Output Intake and Output 08/01/24 07:00 Intake Total 2397 ml Output Total 1100 ml Balance 1297 ml Intake Oral 1500 ml IV Total 897 ml Output Urine Total 1100 ml # Voids 4 # Bowel Movements 2 General Appearance: Alert, Oriented X3, Cooperative, No acute distress HEENT: Atraumatic Lungs: Clear to auscultation, Normal air movement Cardiovascular: Regular rate, Normal S1, Normal S2, No murmurs Extremities: Other (Decreased pulses in lower extremities) Neuro: Normal speech, Cranial nerves 3-12 NL Psych/Mental Status: Mental status NL, Mood NL Medications Current Medications Medications Dose Ordered Sig/Miller Route Start Time Stop Time Status Last Admin Dose Admin Sodium Chloride 1,000 ml @ 75 mls/hr [id number] IV 07/30/24 11:30 08/01/24 06:14 75 MLS/HR Diagnostic Test (Pha) 1 strip ACHS 07/30/24 17:00 08/01/24 06:15 1 STRIP Insulin Human Regular ACHS SC 07/30/24 17:00 07/31/24 22:20 3 UNITS Dextrose 50 ml UD PRN IV 07/30/24 15:15 Aspirin 81 mg DAILY PO 07/31/24 10:00 Atorvastatin Calcium 20 mg HS PO 07/30/24 22:00 07/31/24 22:24 20 MG Venlafaxine HCl 37.5 mg BID PO 07/30/24 22:00 07/31/24 22:24 37.5 MG Acetaminophen 500 mg Q6HP PRN PO 07/30/24 15:15 07/30/24 21:51 500 MG Ondansetron HCl 4 mg Q6HPRN PRN IV 07/30/24 15:15 Metoprolol Tartrate 25 mg BID PO 07/30/24 22:00 12/5/24 22:25 25 MG Gabapentin 300 mg DAILY PO 07/31/24 10:00 07/31/24 10:17 300 MG Laboratory Results Laboratory Tests 07/31/24 06:29 Urinalysis Test 07/31/24 04:28 Urine Color Colorless (Yellow) Urine Clarity Clear (Clear) Urine pH 6.0 (5.0-9.0) Urine Specific [place] 1.016 (1.001-1.035) Urine Protein Negative (Negative) Urine Ketones Negative (Negative) Urine Blood Negative /uL (Negative) Urine Nitrite Negative (Negative) Urine Bilirubin Negative (Negative) Urine Urobilinogen Normal mg/dL (Negative) Urine Leukocyte Esterase Trace /uL (Negative) Urine RBC None seen /hpf (0 - 4) Urine WBC 15 /hpf (0 - 5) Urine Squamous Epithelial Cells Few /hpf (<5) Urine Bacteria None seen /hpf (None Seen) Urine Glucose 3+ mg/dL (Normal) H Labs and/or images reviewed: Labs reviewed by me, Image(s) reviewed by me Assessment/Plan Assessment/Plan Covering Dr. Yip: #Intermittent claudication due to peripheral vascular disease along with diabetic neuropathy; continue pain management as indicated; pending revascularization by cardiology; continue monitoring #Peripheral vascular disease with occlusion of right femoral artery; pending 2nd revascularization attempt by cardiology; 1st attempt was done July 30, 2024; continue aspirin and statin; continue monitoring #CHRIS; most likely vasomotor nephropathy; avoid nephrotoxic agents; continue monitoring #History of cerebrovascular accident; no apparent neurological deficits; continue aspirin statin; continue monitoring #Diabetes mellitus type 2; continue insulin sliding scale with hypoglycemia protocol; continue monitoring #Essential hypertension; continue monitoring blood pressure readings and adjust/add antihypertensive medications accordingly; continue monitoring #Dyslipidemia; continue statin; continue monitoring #Depression; no suicide ideation/plans; continue antidepressant medications; continue monitoring #Normocytic anemia; most likely inflammatory; no signs/symptoms of active bleeding; continue monitoring Goals of care discussion for 20 minutes; full code. Late Entry. This medical document was created using an electronic medical record system with computerized dictation system. Although this document has been carefully reviewed, there might still be some phonetic and typographical errors. These areas are purely typographical due to imperfections of the software programs, and do not reflect any compromise in the patient's medical care. Plan discussed with: Patient, Other (Nurse) Date of Service: Aug 01, 2024 Billing Provider: SANYA SMITH MD Common Visit Codes: [id number] INP/OBS CARE(HIGH) Secondary Visit Codes: [id number] CARE PLAN 30 MINUTES (20 minutes) SANYA SMITH MD Aug 01, 2024 10:34
[2024-08-01] MEDS: hydrALAZINE HCL 20 MG/ML VL IV PRN (17:48)
[2024-08-02 01:00] VITALS: BP 93/55; PULSE 63; RESP 20; TEMP 98.1; O2SAT 96
--- NOTE | 2024-08-02 03:47 | DVHPN2 ---
Subjective Continue to complain of intermittent claudications Reviewed: Care Plan, H&P, Labs, Medications, Previous Orders, Radiology, Other (Consultation) Objective Vitals Vital Signs Date Time Temp Pulse Resp B/P (MAP) Pulse Ox O2 Delivery O2 Flow Rate FiO2 08/02/24 01:00 98.1 63 20 93/55 (68) 96 98.1 08/01/24 20:00 Room Air* 0 21 Intake/Output Intake and Output 08/02/24 07:00 Intake Total 700 ml Output Total 500 ml Balance 200 ml Intake Oral 200 ml IV Total 500 ml Output Urine Total 500 ml General Appearance: Alert, Oriented X3, Cooperative, No acute distress HEENT: Atraumatic Lungs: Clear to auscultation, Normal air movement Cardiovascular: Regular rate, Normal S1, Normal S2, No murmurs Extremities: Other (Decreased pulses in lower extremities) Neuro: Normal speech, Cranial nerves 3-12 NL Psych/Mental Status: Mental status NL, Mood NL Medications Current Medications Medications Dose Ordered Sig/Miller Route Start Time Stop Time Status Last Admin Dose Admin Sodium Chloride 1,000 ml @ 75 mls/hr [id number] IV 07/30/24 11:30 08/01/24 06:14 75 MLS/HR Diagnostic Test (Pha) 1 strip ACHS 07/30/24 17:00 08/01/24 21:55 1 STRIP Insulin Human Regular ACHS SC 07/30/24 17:00 08/01/24 21:57 4 UNITS Dextrose 50 ml UD PRN IV 07/30/24 15:15 Aspirin 81 mg DAILY PO 07/31/24 10:00 Atorvastatin Calcium 20 mg HS PO 07/30/24 22:00 08/01/24 21:39 20 MG Venlafaxine HCl 37.5 mg BID PO 07/30/24 22:00 08/01/24 21:40 37.5 MG Acetaminophen 500 mg Q6HP PRN PO 07/30/24 15:15 08/01/24 22:01 500 MG Ondansetron HCl 4 mg Q6HPRN PRN IV 07/30/24 15:15 Metoprolol Tartrate 25 mg BID PO 07/30/24 22:00 08/01/24 21:40 25 MG Gabapentin 300 mg DAILY PO 07/31/24 10:00 07/31/24 10:17 300 MG Hydralazine HCl 10 mg Q6HP PRN IV 08/01/24 17:00 08/01/24 17:48 10 MG Laboratory Results Laboratory Tests 07/31/24 06:29 Urinalysis Test 07/31/24 04:28 Urine Color Colorless (Yellow) Urine Clarity Clear (Clear) Urine pH 6.0 (5.0-9.0) Urine Specific [place] 1.016 (1.001-1.035) Urine Protein Negative (Negative) Urine Ketones Negative (Negative) Urine Blood Negative /uL (Negative) Urine Nitrite Negative (Negative) Urine Bilirubin Negative (Negative) Urine Urobilinogen Normal mg/dL (Negative) Urine Leukocyte Esterase Trace /uL (Negative) Urine RBC None seen /hpf (0 - 4) Urine WBC 15 /hpf (0 - 5) Urine Squamous Epithelial Cells Few /hpf (<5) Urine Bacteria None seen /hpf (None Seen) Urine Glucose 3+ mg/dL (Normal) H Assessment/Plan Assessment/Plan Covering Dr. Yip: #Intermittent claudication due to peripheral vascular disease along with diabetic neuropathy; continue pain management as indicated; pending revascularization by cardiology; continue monitoring #Peripheral vascular disease with occlusion of right femoral artery; pending 2nd revascularization attempt by cardiology; 1st attempt was done July 30, 2024; continue aspirin and statin; continue monitoring #CHRIS; most likely vasomotor nephropathy; avoid nephrotoxic agents; continue monitoring #History of cerebrovascular accident; no apparent neurological deficits; continue aspirin statin; continue monitoring #Diabetes mellitus type 2; continue insulin sliding scale with hypoglycemia protocol; continue monitoring #Essential hypertension; continue monitoring blood pressure readings and adjust/add antihypertensive medications accordingly; continue monitoring #Dyslipidemia; continue statin; continue monitoring #Depression; no suicide ideation/plans; continue antidepressant medications; continue monitoring #Normocytic anemia; most likely inflammatory; no signs/symptoms of active bleeding; continue monitoring Goals of care discussion for 20 minutes; full code. Late Entry. This medical document was created using an electronic medical record system with computerized dictation system. Although this document has been carefully reviewed, there might still be some phonetic and typographical errors. These areas are purely typographical due to imperfections of the software programs, and do not reflect any compromise in the patient's medical care. My Orders Orders - SANYA SMITH MD Procedure Category Date Status Time Basic Metabolic Panel LAB 08/02/24 Logged 04:00 Complete Blood Count LAB 08/02/24 Logged 04:00 Hydralazine Injection PHA 08/01/24 In Process (Apresoline Inject 17:00 Consistent DIET 08/02/24 Transmitted Carb([facility])Diabetes Breakfast Complete Blood Count LAB 08/03/24 Verified 04:00 Comprehensive LAB 08/03/24 Verified Metabolic Panel 04:00 Code Status CODE 08/02/24 Transmitted 03:43 Date of Service: Aug 02, 2024 SANYA SMITH MD Aug 02, 2024 03:47
[2024-08-02 05:00] VITALS: BP 105/69; PULSE 84; RESP 19; TEMP 98.8; O2SAT 97
[2024-08-02 06:54] LABS: Basophils # (auto) 0 10 ^3/uL (0-0.2); Basophils % (auto) 0.5 % (0.0-2.0); Eosinophils # (auto) 0.1 10 ^3/uL (0-0.8); Eosinophils % (auto) 0.7 % (0.0-7.0); Hemoglobin 13.2 g/dL (12.2-16.2); Lymphocytes # (auto) 2.9 10 ^3/uL (0.4-5.4); Lymphocytes % (auto) 34.6 % (10.0-50.0); Mean Corpuscular Hemoglobin 29.2 pg (28.0-32.0); Mean Corpuscular Hgb Conc. 33.1 g/dL (32.0-36.0); Mean Corpuscular Volume 88.3 fL (80.0-100.0); Monocytes % (auto) 11.5 % (0.0-12.0); Neutrophils # (auto) 4.4 10 ^3/uL (1.6-8.6); Neutrophils % (auto) 52.7 % (37.0-80.0); Nucleated Red Blood Cells % 0.1 %; Platelet Count (auto) 240 10^3/uL (140-450); Red Blood Cells 4.53 10^6/uL (4.0-5.20); Red Cell Distribution Width 13.1 % (11.8-14.3); White Blood Cell 8.3 10^3/uL (4.4-10.8)
[2024-08-02 07:00] LABS: Chloride 104 mmol/L (98-107); Sodium 138 mmol/L (136-145)
[2024-08-02 07:01] LABS: Anion Gap 11 (5-15); Carbon Dioxide 23 mmol/L (20-31)
[2024-08-02 07:06] LABS: BUN/Creatinine Ratio 13.3 (10.0-20.0); Blood Urea Nitrogen 13 mg/dL (9-23)
[2024-08-02 07:09] LABS: Calcium 10.5 mg/dL (8.7-10.4); Glucose 120 mg/dL (74-106)
[2024-08-02 09:00] VITALS: BP 145/69; PULSE 73; RESP 16; TEMP 97.5; O2SAT 97
--- NOTE | 2024-08-02 11:27 | DVHPN2 ---
Reviewed: Care Plan, H&P, Labs, Medications, Previous Orders, Radiology, Other (Consultation) Changes from previous H/P or p: No Changes Objective Vitals Vital Signs Date Time Temp Pulse Resp B/P (MAP) Pulse Ox O2 Delivery O2 Flow Rate FiO2 08/02/24 09:00 97.5 73 16 145/69 (94) 97 97.5 08/02/24 08:00 Room Air* 0 21 Intake/Output Intake and Output 08/02/24 07:00 Intake Total 1250 ml Output Total 850 ml Balance 400 ml Intake Oral 750 ml IV Total 500 ml Output Urine Total 850 ml General Appearance: Alert, Oriented X3, Cooperative, No acute distress HEENT: Atraumatic Lungs: Clear to auscultation, Normal air movement Cardiovascular: Regular rate, Normal S1, Normal S2, No murmurs Extremities: Other (Decreased pulses in lower extremities) Neuro: Normal speech, Cranial nerves 3-12 NL Psych/Mental Status: Mental status NL, Mood NL Medications Current Medications Medications Dose Ordered Sig/Miller Route Start Time Stop Time Status Last Admin Dose Admin Sodium Chloride 1,000 ml @ 75 mls/hr [id number] IV 07/30/24 11:30 08/01/24 06:14 75 MLS/HR Diagnostic Test (Pha) 1 strip ACHS 07/30/24 17:00 08/02/24 06:02 1 STRIP Insulin Human Regular ACHS SC 07/30/24 17:00 08/02/24 06:07 2 UNITS Dextrose 50 ml UD PRN IV 07/30/24 15:15 Aspirin 81 mg DAILY PO 07/31/24 10:00 08/02/24 08:44 81 MG Atorvastatin Calcium 20 mg HS PO 07/30/24 22:00 08/01/24 21:39 20 MG Venlafaxine HCl 37.5 mg BID PO 07/30/24 22:00 08/02/24 08:45 37.5 MG Acetaminophen 500 mg Q6HP PRN PO 07/30/24 15:15 08/01/24 22:01 500 MG Ondansetron HCl 4 mg Q6HPRN PRN IV 07/30/24 15:15 Metoprolol Tartrate 25 mg BID PO 07/30/24 22:00 08/02/24 08:45 25 MG Gabapentin 300 mg DAILY PO 07/31/24 10:00 08/02/24 08:43 300 MG Hydralazine HCl 10 mg Q6HP PRN IV 08/01/24 17:00 08/01/24 17:48 10 MG Laboratory Results Laboratory Tests 08/02/24 06:21 Chemistry Test 08/02/24 06:21 Calcium Level 10.5 mg/dL (8.7-10.4) H Urinalysis Test 07/31/24 04:28 Urine Color Colorless (Yellow) Urine Clarity Clear (Clear) Urine pH 6.0 (5.0-9.0) Urine Specific [place] 1.016 (1.001-1.035) Urine Protein Negative (Negative) Urine Ketones Negative (Negative) Urine Blood Negative /uL (Negative) Urine Nitrite Negative (Negative) Urine Bilirubin Negative (Negative) Urine Urobilinogen Normal mg/dL (Negative) Urine Leukocyte Esterase Trace /uL (Negative) Urine RBC None seen /hpf (0 - 4) Urine WBC 15 /hpf (0 - 5) Urine Squamous Epithelial Cells Few /hpf (<5) Urine Bacteria None seen /hpf (None Seen) Urine Glucose 3+ mg/dL (Normal) H Labs and/or images reviewed: Labs reviewed by me, Image(s) reviewed by me Assessment/Plan Assessment/Plan Covering for Dr. Yip Hypertension Hyperlipidemia History of stroke History of depression Diabetes: Insulin sliding scale Peripheral vascular disease with right femoral artery occlusion; Attempted angioplasty of chronic total occlusion of right common femoral artery by Dr. Jo on 07/30/2024, awaiting re-attempt. Plan discussed with: Patient JEROME THRASHER MD Aug 02, 2024 11:27
[2024-08-02 13:00] VITALS: BP 99/63; PULSE 67; RESP 16; TEMP 97.7; O2SAT 96
[2024-08-02 17:00] VITALS: BP 99/68; PULSE 87; RESP 18; TEMP 97.7; O2SAT 95
[2024-08-02 21:00] VITALS: BP 111/72; PULSE 88; RESP 18; TEMP 98.2; O2SAT 95
[2024-08-03 01:00] VITALS: BP 112/70; PULSE 74; RESP 16; TEMP 98; O2SAT 96
[2024-08-03 05:00] VITALS: BP 140/71; PULSE 61; RESP 18; TEMP 97.9; O2SAT 97
[2024-08-03 07:46] LABS: Basophils # (auto) 0 10 ^3/uL (0-0.2); Basophils % (auto) 0.5 % (0.0-2.0); Eosinophils # (auto) 0.1 10 ^3/uL (0-0.8); Hematocrit 40.3 % (36.0-46.0); Hemoglobin 13.2 g/dL (12.2-16.2); Lymphocytes # (auto) 2.4 10 ^3/uL (0.4-5.4); Lymphocytes % (auto) 27.2 % (10.0-50.0); Mean Corpuscular Hgb Conc. 32.9 g/dL (32.0-36.0); Mean Corpuscular Volume 88.4 fL (80.0-100.0); Monocytes # (auto) 0.9 10 ^3/uL (0-1.3); Monocytes % (auto) 10.1 % (0.0-12.0); Neutrophils # (auto) 5.4 10 ^3/uL (1.6-8.6); Neutrophils % (auto) 61.2 % (37.0-80.0); Platelet Count (auto) 284 10^3/uL (140-450); Red Blood Cells 4.56 10^6/uL (4.0-5.20); Red Cell Distribution Width 13.5 % (11.8-14.3); White Blood Cell 8.9 10^3/uL (4.4-10.8)
[2024-08-03 08:08] LABS: Alanine Aminotransferase 18 U/L (7-40); Albumin 4.3 g/dL (3.2-4.8); Alkaline Phosphatase 106 U/L (46-116); Anion Gap 8 (5-15); Aspartate Aminotransferase 21 U/L (13-40); BUN/Creatinine Ratio 21.7 (10.0-20.0); Blood Urea Nitrogen 23 mg/dL (9-23); Calcium 10.4 mg/dL (8.7-10.4); Carbon Dioxide 26 mmol/L (20-31); Chloride 105 mmol/L (98-107); Potassium 4.1 mmol/L (3.5-5.1); Sodium 139 mmol/L (136-145)
[2024-08-03 08:09] LABS: Bilirubin, Total 0.4 mg/dL (0.2-1.0); Total Protein 7.2 g/dL (5.7-8.2)
[2024-08-03 08:12] LABS: Glucose 123 mg/dL (74-106)
--- NOTE | 2024-08-03 08:28 | DVHPN2 ---
Reviewed: Care Plan, H&P, Labs, Medications, Previous Orders, Radiology, Other (Consultation) Changes from previous H/P or p: No Changes Objective Vitals Vital Signs Date Time Temp Pulse Resp B/P (MAP) Pulse Ox O2 Delivery O2 Flow Rate FiO2 08/03/24 06:52 97.9 08/03/24 05:00 61 18 140/71 (94) 97 08/02/24 20:20 Room Air* 0 21 Intake/Output Intake and Output 08/03/24 07:00 Intake Total 3500 ml Output Total 600 ml Balance 2900 ml Intake Oral 1800 ml IV Total 1700 ml Output Urine Total 600 ml # Voids 4 General Appearance: Alert, Oriented X3, Cooperative, No acute distress HEENT: Atraumatic Lungs: Clear to auscultation, Normal air movement Cardiovascular: Regular rate, Normal S1, Normal S2, No murmurs Extremities: Other (Decreased pulses in lower extremities) Neuro: Normal speech, Cranial nerves 3-12 NL Psych/Mental Status: Mental status NL, Mood NL Medications Current Medications Medications Dose Ordered Sig/Miller Route Start Time Stop Time Status Last Admin Dose Admin Sodium Chloride 1,000 ml @ 75 mls/hr [id number] IV 07/30/24 11:30 08/03/24 05:46 75 MLS/HR Diagnostic Test (Pha) 1 strip ACHS 07/30/24 17:00 08/03/24 06:53 1 STRIP Insulin Human Regular ACHS SC 07/30/24 17:00 08/03/24 06:53 2 UNITS Dextrose 50 ml UD PRN IV 07/30/24 15:15 Aspirin 81 mg DAILY PO 07/31/24 10:00 08/02/24 08:44 81 MG Atorvastatin Calcium 20 mg HS PO 07/30/24 22:00 08/02/24 22:31 20 MG Venlafaxine HCl 37.5 mg BID PO 07/30/24 22:00 08/02/24 22:00 37.5 MG Acetaminophen 500 mg Q6HP PRN PO 07/30/24 15:15 08/03/24 06:52 500 MG Ondansetron HCl 4 mg Q6HPRN PRN IV 07/30/24 15:15 Metoprolol Tartrate 25 mg BID PO 07/30/24 22:00 08/02/24 22:31 25 MG Gabapentin 300 mg DAILY PO 07/31/24 10:00 08/02/24 08:43 300 MG Hydralazine HCl 10 mg Q6HP PRN IV 08/01/24 17:00 08/01/24 17:48 10 MG Laboratory Results Laboratory Tests 08/03/24 06:43 Chemistry Test 08/03/24 06:43 Albumin 4.3 g/dL (3.2-4.8) Calcium Level 10.4 mg/dL (8.7-10.4) Total Protein 7.2 g/dL (5.7-8.2) LFT Test 08/03/24 06:43 Alanine Aminotransferase (ALT) 18 U/L (7-40) Alkaline Phosphatase 106 U/L (46-116) Aspartate Amino Transferase (AST) 21 U/L (13-40) Total Bilirubin 0.4 mg/dL (0.2-1.0) Urinalysis Test 07/31/24 04:28 Urine Color Colorless (Yellow) Urine Clarity Clear (Clear) Urine pH 6.0 (5.0-9.0) Urine Specific [place] 1.016 (1.001-1.035) Urine Protein Negative (Negative) Urine Ketones Negative (Negative) Urine Blood Negative /uL (Negative) Urine Nitrite Negative (Negative) Urine Bilirubin Negative (Negative) Urine Urobilinogen Normal mg/dL (Negative) Urine Leukocyte Esterase Trace /uL (Negative) Urine RBC None seen /hpf (0 - 4) Urine WBC 15 /hpf (0 - 5) Urine Squamous Epithelial Cells Few /hpf (<5) Urine Bacteria None seen /hpf (None Seen) Urine Glucose 3+ mg/dL (Normal) H Labs and/or images reviewed: Labs reviewed by me, Image(s) reviewed by me Assessment/Plan Assessment/Plan Covering for Dr. Yip Hypertension Hyperlipidemia History of stroke History of depression Diabetes: Insulin sliding scale Peripheral vascular disease with right femoral artery occlusion; Attempted angioplasty of chronic total occlusion of right common femoral artery by Dr. Jo on 07/30/2024, awaiting re-attempt. Continue current management Plan discussed with: Patient Date of Service: Aug 03, 2024 Billing Provider: JEROME THRASHER MD Common Visit Codes: [id number] INP/OBS CARE(HIGH) JEROME THRASHER MD Aug 03, 2024 08:27
[2024-08-03 09:00] VITALS: BP 127/79; PULSE 85; RESP 19; TEMP 97.9; O2SAT 99
[2024-08-03] MEDS: HYDROcodone-ACET 5/325MG TAB PO PRN (09:49)
[2024-08-03 13:00] VITALS: BP 102/72; PULSE 76; RESP 18; TEMP 97.7; O2SAT 92
[2024-08-03 17:00] VITALS: BP 135/88; PULSE 80; RESP 20; TEMP 97.9; O2SAT 93
[2024-08-03 21:00] VITALS: BP 179/89; PULSE 83; RESP 18; TEMP 98.1; O2SAT 98
[2024-08-04] VITALS (12 sets, daily range): BP systolic 101–181; BP diastolic 41–86; PULSE 66–98; RESP 13–18; TEMP 97.4–98.3; O2SAT 95–100
[2024-08-04] MEDS: ANGIOMAX 250 MG VIAL IV ONE ×2 (06:09→07:42)
[2024-08-04] MEDS: MIDAZOLAM HCL 2MG/2ML 2ml VIAL (1mg/ml) ONE (06:10)
[2024-08-04] MEDS: fentaNYL CITRATE 100 MCG/2 ML VL ONE (06:10)
[2024-08-04] MEDS: SODIUM CHL 0.9% 50 ML ONE ×2 (06:10→07:42)
[2024-08-04] MEDS: LIDOCAINE 2%HCL (LOCAL ANESTH.) INJ 20ML MDV ONE (06:10)
[2024-08-04] MEDS: IODIXANOL 320MG/ML 100ML BTL IV ONE ×3 (06:29→09:24)
--- NOTE | 2024-08-04 06:51 | DVH ---
CHEST RADIOGRAPH Indication: PRE-OP PROTOCOL Technique: Single frontal view of the chest was obtained COMPARISON: CHEST PORTABLE on DOS: 03/07/20, CHEST PORTABLE on DOS: 03/05/20 FINDINGS: Lines and Tubes: None Lungs: Clear Pleura: No effusion. No pneumothorax. Cardiomediastinal contours: Unremarkable Bones: Unremarkable IMPRESSION: No acute disease.
[2024-08-04] MEDS: hydrALAZINE HCL 20 MG/ML VL ONE (08:04)
[2024-08-04] MEDS: PHENYLEPHRINE HCL 10 MG/ML VL ONE (08:58)
--- NOTE | 2024-08-04 10:20 | DVHOP2 ---
Operative Report - 2 Report Details Date: 08/04/24 Preop Diagnosis: Peripheral vascular disease Postop Diagnosis: Peripheral vascular disease Surgeon: Zelda Jo MD Anesthesiologist: Conscious sedation Anesthesia: Mac, Local Consent: The patient was informed of the risks and benefits of the procedure. These include but are not limited to complications of anesthesia, postoperative infection, incomplete relief of symptoms, recurrence of symptoms, damage to blood vessels, nerves and tendons, deep venous thrombosis, pulmonary embolism and possible need for repeat surgery in the future. Complications: No complications Estimated Blood Loss: 5 cc Name of Procedure Performed PTCA and angioplasty aperture chronic total occlusion right femoral artery. Attempted angioplasty of HEATER WORKER of popliteal and tibioperoneal trunk. Attempted normal trunk gradient approach of the posterior tibial artery. Lithotripsy of the femoral artery. Stenting of the right femoral artery. No complications. Procedure Details Procedure Details: Prior local anesthesia with 2% lidocaine to the left groin full informed consent obtained patient was prepped and draped in usual fashion followed by placement of a six [place] sheath under angiographic and ultrasound guidance. We placed a destination catheter into the left femoral artery and cross over into the right iliac artery. We then placed the destination catheter were over across lead wire from we will sign eight. We then used a Tanisha wire and a trailblazer catheter as well as parenchymal I angled 018 [place]. We are able into the true lumen subsequent to which we involving right with a six 0 balloon. With the police station six 0 x 60 shock wave intravascular lithotripsy device and perform the proximally six treatments. Subsequent to this mean police three days p.r.n. vascular 6 x 80 mm stenting right femoral artery. This was post dilated with six 0 by 80 mm starting. We attempted several wires to cross the lesion stenosis into the distal popliteal but this was unsuccessful. Ultrasound guidance was also used to in an attempt to excise the obtuse systolic posterior tibial artery also unsuccessful. We pulled the sheath in the left femoral artery and sent the patient to rule. There were no complications patient tolerated procedure well. We will obtain vascular consultation to determine if posterior tibial artery can be bypassed or a subsequent attempt can be made to open the RV in the future. Condition Fair Disposition Still a Patient Date of Service: Aug 04, 2024 Billing Provider: ZELDA JO Sr., MD Cardiology Common Codes: [id number] HOSP CARE(High Peripheral Add ons: [id number] STENT W/ANGPLASTY (Intravascular lithotripsy and stenting of the right femoral artery superficial femoral artery.), 40788- STENT PLMNT ARECTMY/VICSTZELDA JUAREZ Sr., MD Aug 04, 2024 10:20
--- NOTE | 2024-08-04 10:24 | DVHPN2 ---
Progress Note Date Seen: Aug 04, 2024 Medical Necessity Reason Pt with a Central, PICC or Fol: No Subjective Patient reports: No new complaints Review of Systems: HEENT:Normal, CVS:Normal, RESPIRATORY:Normal, GI:Normal, :Normal, MSK:Normal, NEURO:Normal Objective vital signs Vital Sign Date Time Temp Pulse Resp B/P (MAP) Pulse Ox O2 Delivery O2 Flow Rate FiO2 08/04/24 05:00 97.4 66 18 161/85 (110) 95 97.4 08/03/24 20:00 Room Air* 0 21 Total Intake and Output 08/03/24 08/03/24 08/04/24 15:00 23:00 07:00 Intake Total 1000 ml 750 ml Output Total 2000 ml Balance -1000 ml 750 ml medications Current Medications Medications Dose Ordered Sig/Miller Route Start Time Stop Time Status Last Admin Dose Admin Diagnostic Test (Pha) 1 strip ACHS 07/30/24 17:00 08/03/24 21:24 1 STRIP Insulin Human Regular ACHS SC 07/30/24 17:00 08/03/24 21:25 4 UNITS Dextrose 50 ml UD PRN IV 07/30/24 15:15 Aspirin 81 mg DAILY PO 07/31/24 10:00 08/03/24 09:49 81 MG Atorvastatin Calcium 20 mg HS PO 07/30/24 22:00 08/03/24 21:20 20 MG Venlafaxine HCl 37.5 mg BID PO 07/30/24 22:00 08/03/24 21:20 37.5 MG Acetaminophen 500 mg Q6HP PRN PO 07/30/24 15:15 08/03/24 06:52 500 MG Ondansetron HCl 4 mg Q6HPRN PRN IV 07/30/24 15:15 Metoprolol Tartrate 25 mg BID PO 07/30/24 22:00 08/03/24 21:19 25 MG Gabapentin 300 mg DAILY PO 07/31/24 10:00 08/03/24 09:49 300 MG Hydralazine HCl 10 mg Q6HP PRN IV 08/01/24 17:00 08/01/24 17:48 10 MG Acetaminophen/ Hydrocodone Bitart 1 tab Q6HPRN PRN PO 08/03/24 08:30 08/03/24 21:30 1 TAB Sodium Chloride 1,000 ml @ 75 mls/hr [id number] IV 08/04/24 10:00 08/04/24 18:00 Examination: GENERAL:Normal, HEENT:Normal, NECK:Normal, LUNGS:Normal, CVS:Normal, ABDOMEN:Normal, MSK:Normal, SKIN:Normal, NEURO:Normal, :Normal laboratory and microbiology Laboratory Tests 08/03/24 06:43 Test 08/03/24 06:43 Range/Units Serum Glucose 123 H 74-106 mg/dL Problem List/Assessment/Plan Problem List/Assessment/Plan * Peripheral vascular disease with right femoral artery occlusion. The patient rescheduled for angiogram and attempted angioplasty today * Diabetes mellitus for which she will be placed on sliding scale insulin. * Hypertension: adjust meds * Hyperlipidemia. * History of cerebrovascular accident. * History of depression. advance care planning- full code- time spent 19 mins Plan discussed with: Other (rn) Date of Service: Aug 04, 2024 Billing Provider: KRYSTINA BALL MD Common Visit Codes: [id number] INP/OBS CARE(HIGH) KRYSTINA BALL MD Aug 04, 2024 10:24
[2024-08-04] MEDS ORDERED: DEXTROSE (50%) 50ML SYRG IV PRN (10:30)
[2024-08-04] MEDS: ACCU-CHEK COMFORT CURVE STRIP VI SCH (13:27)
[2024-08-04] MEDS: SOD CHL 0.45% 1,000 ML IV SCH (13:27)
[2024-08-04] MEDS: InsuLIN REG 1unit/0.01ml Soln (100units/ml) SC SCH ×2 (13:43→20:29)
[2024-08-04 15:52] LABS: Basophils # (auto) 0 10 ^3/uL (0-0.2); Basophils % (auto) 0.2 % (0.0-2.0); Eosinophils # (auto) 0 10 ^3/uL (0-0.8); Hematocrit 40.6 % (36.0-46.0); Hemoglobin 13.1 g/dL (12.2-16.2); Lymphocytes # (auto) 1.2 10 ^3/uL (0.4-5.4); Lymphocytes % (auto) 10.3 % (10.0-50.0); Mean Corpuscular Hemoglobin 28.7 pg (28.0-32.0); Mean Corpuscular Hgb Conc. 32.3 g/dL (32.0-36.0); Mean Corpuscular Volume 88.8 fL (80.0-100.0); Monocytes # (auto) 0.6 10 ^3/uL (0-1.3); Monocytes % (auto) 4.8 % (0.0-12.0); Neutrophils # (auto) 9.8 10 ^3/uL (1.6-8.6); Neutrophils % (auto) 84.7 % (37.0-80.0); Platelet Count (auto) 256 10^3/uL (140-450); Red Blood Cells 4.57 10^6/uL (4.0-5.20); Red Cell Distribution Width 13.4 % (11.8-14.3); White Blood Cell 11.6 10^3/uL (4.4-10.8)
[2024-08-04 16:09] LABS: Alanine Aminotransferase 25 U/L (7-40); Albumin 4.4 g/dL (3.2-4.8); Anion Gap 9 (5-15); Aspartate Aminotransferase 25 U/L (13-40); BUN/Creatinine Ratio 19.8 (10.0-20.0); Blood Urea Nitrogen 17 mg/dL (9-23); Calcium 10.1 mg/dL (8.7-10.4); Carbon Dioxide 24 mmol/L (20-31); Chloride 105 mmol/L (98-107); Potassium 4.1 mmol/L (3.5-5.1); Sodium 138 mmol/L (136-145)
[2024-08-04 16:10] LABS: Bilirubin, Total 0.3 mg/dL (0.2-1.0); Total Protein 7.3 g/dL (5.7-8.2)
[2024-08-04 16:11] LABS: Glucose 149 mg/dL (74-106)
[2024-08-04 16:12] LABS: Alkaline Phosphatase 122 U/L (46-116)
[2024-08-05 01:00] VITALS: BP 167/68; PULSE 82; RESP 17; TEMP 98; O2SAT 96
[2024-08-05 05:00] VITALS: BP 84/83; PULSE 86; RESP 17; TEMP 97.8; O2SAT 95
[2024-08-05 06:43] LABS: Basophils # (auto) 0 10 ^3/uL (0-0.2); Basophils % (auto) 0.4 % (0.0-2.0); Eosinophils # (auto) 0 10 ^3/uL (0-0.8); Eosinophils % (auto) 0.4 % (0.0-7.0); Hematocrit 38.7 % (36.0-46.0); Hemoglobin 12.6 g/dL (12.2-16.2); Lymphocytes # (auto) 2.2 10 ^3/uL (0.4-5.4); Lymphocytes % (auto) 20.6 % (10.0-50.0); Mean Corpuscular Hemoglobin 28.9 pg (28.0-32.0); Mean Corpuscular Hgb Conc. 32.6 g/dL (32.0-36.0); Mean Corpuscular Volume 88.7 fL (80.0-100.0); Monocytes % (auto) 9.6 % (0.0-12.0); Neutrophils # (auto) 7.4 10 ^3/uL (1.6-8.6); Platelet Count (auto) 239 10^3/uL (140-450); Red Blood Cells 4.37 10^6/uL (4.0-5.20); Red Cell Distribution Width 13.5 % (11.8-14.3); White Blood Cell 10.7 10^3/uL (4.4-10.8)
[2024-08-05 06:52] LABS: Anion Gap 14 (5-15); Carbon Dioxide 22 mmol/L (20-31); Chloride 103 mmol/L (98-107); Potassium 4.1 mmol/L (3.5-5.1); Sodium 139 mmol/L (136-145)
[2024-08-05 06:53] LABS: Calcium 10.4 mg/dL (8.7-10.4)
[2024-08-05 06:58] LABS: BUN/Creatinine Ratio 17.2 (10.0-20.0); Blood Urea Nitrogen 16 mg/dL (9-23)
[2024-08-05 07:06] LABS: Glucose 159 mg/dL (74-106)
[2024-08-05 08:00] VITALS: PULSE 106; RESP 17; O2SAT 98
[2024-08-05 08:48] VITALS: BP 119/55; PULSE 106; RESP 17; TEMP 97.3; O2SAT 98
--- NOTE | 2024-08-05 09:53 | DVHDS2 ---
Discharge Summary Date of Admission Jul 30, 2024 at 11:17 Date of Discharge: Aug 05, 2024 Labs/Diagnostic Data: Laboratory Results Test 08/05/24 05:44 08/05/24 05:13 08/04/24 15:23 07/31/24 04:28 White Blood Count 10.7 10^3/uL (4.4-10.8) Red Blood Count 4.37 10^6/uL (4.0-5.20) Hemoglobin 12.6 g/dL (12.2-16.2) Hematocrit 38.7 % (36.0-46.0) Mean Corpuscular Volume 88.7 fL (80.0-100.0) Mean Corpuscular Hemoglobin 28.9 pg (28.0-32.0) Mean Corpuscular Hemoglobin Concent 32.6 g/dL (32.0-36.0) Red Cell Distribution Width 13.5 % (11.8-14.3) Platelet Count 239 10^3/uL (140-450) Mean Platelet Volume 8.0 fL (6.9-10.8) Neutrophils (%) (Auto) 69.0 % (37.0-80.0) Lymphocytes (%) (Auto) 20.6 % (10.0-50.0) Monocytes (%) (Auto) 9.6 % (0.0-12.0) Eosinophils (%) (Auto) 0.4 % (0.0-7.0) Basophils (%) (Auto) 0.4 % (0.0-2.0) Neutrophils # (Auto) 7.4 10 ^3/uL (1.6-8.6) Lymphocytes # (Auto) 2.2 10 ^3/uL (0.4-5.4) Monocytes # (Auto) 1.0 10 ^3/uL (0-1.3) Eosinophils # (Auto) 0 10 ^3/uL (0-0.8) Basophils # (Auto) 0 10 ^3/uL (0-0.2) Nucleated Red Blood Cells 0.0 % Sodium Level 139 mmol/L (136-145) Potassium Level 4.1 mmol/L (3.5-5.1) Chloride Level 103 mmol/L (98-107) Carbon Dioxide Level 22 mmol/L (20-31) Anion Gap 14 (5-15) Blood Urea Nitrogen 16 mg/dL (9-23) Creatinine 0.93 mg/dL (0.550-1.02) Glomerular Filtration Rate Calc 66 mL/min (>90) BUN/Creatinine Ratio 17.2 (10.0-20.0) Serum Glucose 159 mg/dL (74-106) Calcium Level 10.4 mg/dL (8.7-10.4) POC Glucose 176 mg/dl (70-106) Total Bilirubin 0.3 mg/dL (0.2-1.0) Aspartate Amino Transferase (AST) 25 U/L (13-40) Alanine Aminotransferase (ALT) 25 U/L (7-40) Alkaline Phosphatase 122 U/L (46-116) Total Protein 7.3 g/dL (5.7-8.2) Albumin 4.4 g/dL (3.2-4.8) Urine Color Colorless (Yellow) Urine Clarity Clear (Clear) Urine pH 6.0 (5.0-9.0) Urine Specific [place] 1.016 (1.001-1.035) Urine Protein Negative (Negative) Urine Ketones Negative (Negative) Urine Blood Negative /uL (Negative) Urine Nitrite Negative (Negative) Urine Bilirubin Negative (Negative) Urine Urobilinogen Normal mg/dL (Negative) Urine Leukocyte Esterase Trace /uL (Negative) Urine RBC None seen /hpf (0 - 4) Urine WBC 15 /hpf (0 - 5) Urine Squamous Epithelial Cells Few /hpf (<5) Urine Bacteria None seen /hpf (None Seen) Urine Glucose 3+ mg/dL (Normal) Test 07/29/24 11:36 Prothrombin Time 10.3 sec (9.3-11.8) Prothrombin Time INR 0.97 (0.9-1.15) Activated Partial Thromboplast Time 26.5 SEC (24.5-34.5) Other Laboratory Tests 08/05/24 05:44 Brief Hx & Hospital Course: see dictated note Condition at Discharge: Fair Final Diagnosis/Problems List Peripheral vascular disease Discharge Disposition: Home Discharge Instruct/Medications Diet: Consistent carbohydrate, Cardiac 2g Na,low cholest Activity: No Restrictions, As Tolerated Follow Up/Referral: schedule appt with dr Jo Medications: resume home meds continue asa for 1 month script to pharmacy Discharge Statement: "Patient was advised to return to the ER or call 911 if any headaches, dizziness, shortness of breath, chest pain, abdominal pain, bleeding, fevers, or worsening of medical condition. Patient was counseled about treatment plan, medications, possible side effects, patientverbalized understanding. All questions were answered to the best of my ability. This discharge took greater then 30 minutes in planning, reviewing documentation, counseling the patient, and discussing with other team members." ASSESSMENT ASSESSMENT Assessment Peripheral vascular disease Date of Service: Aug 05, 2024 Billing Provider: KRYSTINA BALL MD Common Visit Codes: [id number]/OBS DISCH DAY >30min KRYSTINA BALL MD Aug 05, 2024 09:53
[2024-08-05] MEDS ORDERED: APIX2.5T PO (09:54)
--- NOTE | 2024-08-05 10:11 | DVHDS ---
DATE OF DISCHARGE: 08/05/2024 HISTORY OF PRESENT ILLNESS: The patient is a 68-year-old lady who was admitted with peripheral vascular disease and total occlusion of the right femoral artery. She has a history of diabetes, hypertension, hyperlipidemia, and previous CVA. HOSPITAL COURSE: The patient underwent an initial procedure by Dr. Jo that was unsuccessful. The patient had a repeat procedure done on 08/04/2024 with stenting and angioplasty of chronic total occlusion of the right femoral artery. There was attempted angioplasty of the popliteal and tibioperoneal trunk. The patient is currently doing well. As per my discussion with Dr. Jo, she can be discharged home to resume her home medications as well as be on Eliquis 2.5 mg b.i.d. and to continue aspirin for 1 additional month. She will follow up with him in 2 weeks. FINAL DIAGNOSES: Therefore, * Peripheral vascular disease with right femoral artery occlusion, status post angioplasty and stenting. * Diabetes mellitus. * Hypertension. * Hyperlipidemia. * History of cerebrovascular accident. * Depression. Time spent in discharge planning and review of plan with the patient and cosmetic sales consultant was 38 minutes. MD HARMONY Brambila/JESÚS TID: [id number] RECEIPT: [id number]
[2024-08-05] MEDS: APIXABAN 2.5 MG TAB PO SCH (10:47)
[2024-08-05] MEDS: CLOPIDOGREL BISULFATE 75 MG TAB PO SCH (10:47)
[2024-08-05] MEDS ORDERED: CLOP75TA28 PO (11:15)
[2024-08-05 12:57] VITALS: BP_SYST 110; BP_SYST 171; BP_DIAS 74; BP_DIAS 78; PULSE 83; RESP 16; TEMP 97.4; O2SAT 98
== END 2024-08-05 15:56 | disposition home or self-care (01) | DRG 279 ==
LOC: CATH 06:50 → OVERFLOW 11:17 → CENTRAL 16:48
PROVIDERS: ADMIT Internal Medicine; ATTEND Internal Medicine
PROC: B41G1ZZ Fluoroscopy of Left Lower Extremity Arteries using Low Osmolar Contrast (ICD-10-PCS; 2024-07-30)
PROC: B41F1ZZ Fluoroscopy of Right Lower Extremity Arteries using Low Osmolar Contrast (ICD-10-PCS; 2024-07-30)
PROC: 04FK3ZZ Fragmentation of Right Femoral Artery, Percutaneous Approach (ICD-10-PCS; principal; 2024-08-04)
PROC: 047 Lower Arteries, Dilation (ICD-10-PCS; 2024-08-04)
PROC: 04JY3ZZ Inspection of Lower Artery, Percutaneous Approach (ICD-10-PCS; 2024-08-04)
DX: E11.51 Type 2 diabetes mellitus with diabetic peripheral angiopathy without gangrene (principal); E78.5 Hyperlipidemia, unspecified; I10 Essential (primary) hypertension; F32.A Depression, unspecified; Z79.01 Long term (current) use of anticoagulants; Z86.73 Personal history of transient ischemic attack (TIA), and cerebral infarction without residual deficits; Z79.899 Other long term (current) drug therapy; Z79.4 Long term (current) use of insulin
CPT/HCPCS: 36415; 37226; 71045; 75716; 80048; 80053; 81001; 82962; 85025; 85610; 85730; 86850; 86900; 86901; 99152; C1769; C1876; C1894; G0378; J1815; J2250; Q9967

== ENCOUNTER → 2024-10-14 | Outpatient (CLI) | payer OTHER, MEDICAID ==
[~2024-10-14] MED LIST changes: +APIX5TAB PO; -ASPI-543 PO; +CLOP75TA28 PO; -GLIP10TA9 PO
[2024-10-14 11:35] LABS: Alanine Aminotransferase 10 U/L (7-40); Alkaline Phosphatase 90 U/L (46-116); Anion Gap 7 (5-15); Aspartate Aminotransferase 16 U/L (13-40); BUN/Creatinine Ratio 18.4 (10.0-20.0); Blood Urea Nitrogen 18 mg/dL (9-23); Calcium 10.1 mg/dL (8.7-10.4); Carbon Dioxide 30 mmol/L (20-31); Chloride 101 mmol/L (98-107); Potassium 4.4 mmol/L (3.5-5.1); Sodium 138 mmol/L (136-145)
[2024-10-14 11:36] LABS: Albumin 4.4 g/dL (3.2-4.8)
[2024-10-14 11:37] LABS: Bilirubin, Total 0.6 mg/dL (0.2-1.0); Total Protein 6.9 g/dL (5.7-8.2)
[2024-10-14 11:44] LABS: Glucose 121 mg/dL (74-106)
[2024-10-14 15:23] LABS: Triglycerides 71 mg/dL (< 150)
[2024-10-14 15:24] LABS: Cholesterol 138 mg/dL (< 200); LDL Cholesterol 62 mg/dL (< 100)
[2024-10-14 15:25] LABS: HDL Cholesterol 54 mg/dL (40-59)
[2024-10-14 16:28] LABS: Micro Albumin < 3.0 mg/L (<30.0); Microalb/Creat Ratio, Urine < 4.00
== END | disposition home or self-care (01) ==
LOC: LAB 10:28
PROVIDERS: ATTEND Family Medicine
DX: I12.9 Hypertensive chronic kidney disease with stage 1 through stage 4 chronic kidney disease, or unspecified chronic kidney disease (principal); E11.22 Type 2 diabetes mellitus with diabetic chronic kidney disease; N18.9 Chronic kidney disease, unspecified; E11.65 Type 2 diabetes mellitus with hyperglycemia; E78.2 Mixed hyperlipidemia
CPT/HCPCS: 36415; 80053; 80061; 82043; 82570; 83036

== ENCOUNTER 2024-10-15 06:44 | Day surgery (SDC) | payer MEDICAID ==
[2024-10-13 11:07] LABS: INR 0.98 (0.9-1.15); Prothrombin Time 10.4 sec (9.3-11.8)
[2024-10-13 11:09] LABS: Basophils # (auto) 0 10 ^3/uL (0-0.2); Basophils % (auto) 0.3 % (0.0-2.0); Eosinophils # (auto) 0.1 10 ^3/uL (0-0.8); Eosinophils % (auto) 1.2 % (0.0-7.0); Hematocrit 33.7 % (36.0-46.0); Hemoglobin 10.8 g/dL (12.2-16.2); Lymphocytes % (auto) 22.4 % (10.0-50.0); Mean Corpuscular Hgb Conc. 32.1 g/dL (32.0-36.0); Mean Corpuscular Volume 87.4 fL (80.0-100.0); Monocytes # (auto) 0.8 10 ^3/uL (0-1.3); Monocytes % (auto) 8.5 % (0.0-12.0); Neutrophils # (auto) 6.1 10 ^3/uL (1.6-8.6); Neutrophils % (auto) 67.6 % (37.0-80.0); Platelet Count (auto) 307 10^3/uL (140-450); Red Blood Cells 3.86 10^6/uL (4.0-5.20); Red Cell Distribution Width 13.6 % (11.8-14.3)
[2024-10-13 12:27] LABS: Anion Gap 13 (5-15)
[2024-10-13 12:28] LABS: Calcium 10.2 mg/dL (8.7-10.4); Carbon Dioxide 26 mmol/L (20-31); Chloride 101 mmol/L (98-107); Potassium 4.3 mmol/L (3.5-5.1); Sodium 140 mmol/L (136-145)
[2024-10-13 12:32] LABS: BUN/Creatinine Ratio 19.4 (10.0-20.0)
[2024-10-13 12:39] LABS: Alanine Aminotransferase 14 U/L (7-40); Albumin 4.5 g/dL (3.2-4.8); Alkaline Phosphatase 89 U/L (46-116); Aspartate Aminotransferase 21 U/L (13-40); Bilirubin, Total 0.4 mg/dL (0.2-1.0); Blood Urea Nitrogen 20 mg/dL (9-23); Glucose 119 mg/dL (74-106); Total Protein 7.2 g/dL (5.7-8.2)
[~2024-10-15] VITALS: Ht 170.2 cm; Wt 71.2 kg
[2024-10-15] VITALS (10 sets, daily range): BP systolic 113–161; BP diastolic 66–85; PULSE 64–75; RESP 12–18; TEMP 97.5; O2SAT 94–97
[2024-10-15] MEDS ORDERED: NITROGLYCERIN 50MG/250ML 250 ML IV ONE (07:20)
[2024-10-15] MEDS ORDERED: HEPARIN IN NS 1000Units/500mL 1,500 ML ONE (07:44)
[2024-10-15] MEDS ORDERED: LIDOCAINE 2%HCL (LOCAL ANESTH.) INJ 20ML MDV ONE (07:56)
[2024-10-15] MEDS ORDERED: ANGIOMAX 250 MG VIAL IV ONE ×2 (07:56→09:34)
[2024-10-15] MEDS ORDERED: MIDAZOLAM HCL 2MG/2ML 2ml VIAL (1mg/ml) ONE ×3 (07:56→10:31)
[2024-10-15] MEDS ORDERED: SODIUM CHL 0.9% 50 ML ONE ×2 (07:56→09:35)
[2024-10-15] MEDS ORDERED: fentaNYL CITRATE 100 MCG/2 ML VL ONE (07:56)
[2024-10-15] MEDS ORDERED: IODIXANOL 320MG/ML 100ML BTL IV ONE ×3 (07:56→10:18)
--- NOTE | 2024-10-15 10:53 | DVHOP2 ---
Operative Report - 2 Report Details Date: 10/15/24 Preop Diagnosis: Severe peripheral vascular disease Postop Diagnosis: Successful aperture of [employer] of popliteal artery and tibioperoneal trunk Surgeon: Zelda Jo MD Anesthesiologist: Conscious sedation. Anesthesia: Mac, Local (Conscious sedation given in the form of Versed and fentanyl. I supervised the administration of conscious sedation throughout the entirety of the procedure.) Consent: The patient was informed of the risks and benefits of the procedure. These include but are not limited to complications of anesthesia, postoperative infection, incomplete relief of symptoms, recurrence of symptoms, damage to blood vessels, nerves and tendons, deep venous thrombosis, pulmonary embolism and possible need for repeat surgery in the future. Complications: No complications Estimated Blood Loss: 15 cc Findings: Severe peripheral vascular disease. Chronic occlusion left popliteal artery. Indications for Surgery: Claudication. Limb ischemia. Name of Procedure Performed Peripheral angiographic evaluation [employer] and stenting of the left popliteal artery . Aperture of [employer] of left popliteal and tibioperoneal trunk. Angiographic evaluation of right lower extremity with runoff to the feet bilaterally. Procedure Details Procedure Details: Prior local anesthesia with 2% lidocaine to the right groin full informed consent obtained the patient was prepped and draped in usual fashion followed by placement of a six Ethiopian sheath into the right femoral artery through which a six Ethiopian catheter was advanced into the right femoral artery and a runoff performed of the right lower extremity. We then placed a rim catheter over the horn contralaterally and placed in advantage wire distally. We then performed an angiographic evaluation of the left lower extremity to the level of the lower calf. We then placed a 90 cm destination catheter. This was a six Ethiopian catheter. We then used a 035 Terumo Navicross with several wires to cross the area of stenosis after we identified several lesions. Angiographic evaluation revealed a stent placed in the right femoral artery that was patent. The iliacs bilaterally these were normal. The left femoral was normal. The left mid SFA as a mild plaque. The distal and left SFA is normal. The popliteal artery is occluded above the patella. Minimal collateralization is noted to the lower extremity. After placing the destination sheath and the Terumo Navicross into the origin of the popliteal occlusion we were able to pass a pro via 12 crossing wire into the distal tibioperoneal trunk and into the peroneal artery. We then able to pass a two five balloon and pre-dilated the area of stenosis subsequent to which we placed a 3.5 mm by 60 mm chocolate balloon and inflated several times. There was a residual lesion popliteal that was with the unstable. We opted to stent. We placed a 5.5 x 60 mm Supera stent from the distal popliteal to the distal superficial femoral artery. We post dilated with a 5 mm balloon. There was a slight edge dissection that was treated with a prolonged inflation distally. This resolved the dissection to bought a 90%. Dissection was flowing posterior which was considered benign and no stent was placed distally. Final angiographic evaluation we will two-vessel runoff from the posterior tibial and peroneal artery to the foot. We attempted a Perclose device in the right femoral artery however this failed for which we held manual pressure. Impression successful [employer] and stenting of the left popliteal artery and aperture of chronic total occlusion with re-establishment of flow into the distal left lower extremity via the peroneal and posterior tibial arteries. Patent right femoral artery stent. Occlusion of the right distal tibioperoneal trunk with collateralization to the foot. Recommendation we will continue antiplatelet therapy. If the patient has recurrent symptoms consider retrograde approach from the right anterior tibial artery to the tibioperoneal trunk. Condition Good Disposition Home Date of Service: Oct 15, 2024 Billing Provider: ZELDA JO Sr., MD Cardiology Common Codes: 99453-PYGHMGH INP/OBS CARE (High) Peripheral Procedures Codes: 72974-[id number] W/TRANS ANGPLASTY, 84717-RYZKS PLACMNT W/ANGIOPLASTY, 96408-CFOYSL TIBIAL PERONEAL ART, [id number]-GNSHX ATHERECTOMY ANGIO (Atherotomy of the left popliteal artery with stenting and revascularization/aperture of chronic total occlusion of the left popliteal and reestablishing flow to the peroneal and posterior tibial artery and left foot) Peripheral Add ons: 15260-MECSCE TIBIAL/PERON ARTERY, 69916-[id number] STENT W/ANGPLASTY, 46653-ZIMCI PLMNT ARECTMY/ANGPLSTY ZELDA JO Sr., MD Oct 15, 2024 10:53
[2024-10-15] MEDS: SODIUM CHLORIDE 0.9% 1,000 ML IV SCH (11:29)
[2024-10-15] MEDS: HYDROcodone-ACET 5/325MG TAB PO ONE (13:49)
== END 2024-10-15 17:00 | disposition home or self-care (01) ==
LOC: CATH 06:44
PROVIDERS: ATTEND Internal Medicine
DX: I70.222 Atherosclerosis of native arteries of extremities with rest pain, left leg (principal); I70.92 Chronic total occlusion of artery of the extremities; F41.8 Other specified anxiety disorders; Z79.899 Other long term (current) drug therapy; Z90.710 Acquired absence of both cervix and uterus; Z95.820 Peripheral vascular angioplasty status with implants and grafts; Z84.89 Family history of other specified conditions
CPT/HCPCS: 36415; 37226; 75716; 80053; 82962; 85025; 85610; C1725; C1769; C1876; C1887; C1894; J0583; J1644; J2250; J3010; Q9967; 99152; 99153

== ENCOUNTER → 2024-11-20 | Outpatient (CLI) | payer MEDICAID | END | disposition home or self-care (01) | LOC: LAB 12:29 | PROVIDERS: ATTEND Family Medicine | DX: Z12.11 Encounter for screening for malignant neoplasm of colon (principal); Z00.01 Encounter for general adult medical examination with abnormal findings | CPT/HCPCS: 82270 ==

== ENCOUNTER → 2024-11-25 | Outpatient (CLI) | payer MEDICAID ==
[2024-11-25 10:51] LABS: Albumin 4.6 g/dL (3.2-4.8); Alkaline Phosphatase 100 U/L (46-116); Anion Gap 8 (5-15); BUN/Creatinine Ratio 21.1 (10.0-20.0); Carbon Dioxide 25 mmol/L (20-31); Chloride 102 mmol/L (98-107); Potassium 3.8 mmol/L (3.5-5.1); Total Protein 7.6 g/dL (5.7-8.2)
[2024-11-25 10:52] LABS: Bilirubin, Total 0.3 mg/dL (0.2-1.0)
[2024-11-25 10:56] LABS: Alanine Aminotransferase < 9 U/L (7-40); Aspartate Aminotransferase 12 U/L (13-40); Blood Urea Nitrogen 24 mg/dL (9-23); Calcium 10.4 mg/dL (8.7-10.4); Glucose 156 mg/dL (74-106); Sodium 135 mmol/L (136-145)
== END | disposition home or self-care (01) ==
LOC: LAB 09:22
PROVIDERS: ATTEND Internal Medicine
DX: I10 Essential (primary) hypertension (principal)
CPT/HCPCS: 36415; 80053

== ENCOUNTER 2024-12-28 11:28 | Inpatient (IN) | payer MEDICAID ==
[~2024-12-28] VITALS: Ht 170.2 cm; Wt 69.5 kg
--- NOTE | 2024-12-28 12:26 | ED.PDOC ---
History of Present Illness HPI Comments 69F presents to the Er w/ spouse who is blind and the pt having a prior MHx of CVA, Depression, DM, HTN, PE xLE;SHx of Leg Sx, Hysterectomy, Partial Lung Sx and the c/c of falls. Pt reports that she has been falling several times for the past 3 days, towards the back of her head. Pt notes that she falls back and not forward. Spouse states that the pt had a work incident 4 years ago where she fell back and had nerve issues due from that fall. Denies chills, fever, N/V/D, SOB, CP. No other associated symptoms, modifiers, recent injuries or sick contacts present at this time. Chief Complaint: Fall Injury Time Seen by MD: 12:05 Primary Care Provider: MAE Lantigua Notes: Nurses Notes, Medications, Allergies Allergies: Coded Allergies: NO KNOWN ALLERGIES (Unverified , 10/13/24) Home Meds Active Scripts Clopidogrel Bisulfate (Plavix) 75 Mg Tab, 75 MG PO DAILY for 30 Days, #30 TAB 3 Refills Prov:KRYSTINA BALL MD 08/05/24 Acetaminophen (Tylenol 8 Hour Arthritis) 650 Mg Tab, 650 MG PO TID, #30 TAB Prov:EMORY GALLAGHER 01/19/22 Reported Medications Apixaban Base (ELIQUIS) 5 Mg Tab, 5 MG PO BID for PVD, TAB 10/13/24 Clobetasol Propionate (Clobetasol Propionate) 0.05 % Cre, 1 APPLIC TOP BID for AFFECTED AREAS, #15 GRAMS 07/29/24 Ketoconazole (Ketoconazole) 2 % Cre, 1 APPLIC TOP DAILY for RASH, #15 GRAMS 07/29/24 Calcipotriene (CALCIPOTRIENE) 0.005 % Cre, 0.005 % EX BID for PSORIASIS, CRE 07/29/24 Atorvastatin Calcium (ATORVASTATIN CALCIUM) 10 Mg Tab, 1 TAB PO DAILY for HIGH CHOLESTEROL, #30 TAB 5 Refills 07/29/24 Gabapentin (Gabapentin) 300 Mg Cap, 300 MG PO DAILY for NEUROPATHY, MG 07/29/24 Empagliflozin (Jardiance) 25 Mg Tab, 25 MG PO DAILY for DIABETES, TAB 07/29/24 Venlafaxine HCl (Venlafaxine Hydrochloride) 75 Mg Tab, 225 MG PO DAILY for DEPRESSION, TAB 03/06/20 Metoprolol Tartrate (LOPRESSOR TABLET) 50 Mg Tb, 1 TAB PO DAILY for HTN, #60 TAB 5 Refills 03/06/20 Losartan Potassium (Losartan Potassium) 100 Mg Tab, 1 TAB PO DAILY for HTN, #30 TAB 5 Refills 03/06/20 Chlorthalidone (Chlorthalidone) 25 Mg Tab, 25 MG PO DAILY for HTN/EDEMA, TAB 03/06/20 Metformin Hydrochloride (Metformin Hcl) 500 Mg Tab, 1000 MG PO IBID for DIABETES for 30 Days, MG 03/06/20 Citalopram Hydrobromide (Citalopram Hydrobromide) 40 Mg Tab, 40 MG PO DAILY for 30 Days, MG 03/06/20 Information Source: Patient, Spouse Mode of Arrival: Ambulatory Severity: Moderate Timing: Days Duration: Since onset, Days Prehospital treatment: None Past Medical History PAST MEDICAL HISTORY: CVA, Depression, DM, HTN, PE (LE) Surgical History: Hysterectomy Surgical History (Other): Leg Sx, Partial Lung Sx [employer] History: No Pertinent [employer]DER History Family History Family History: Reviewed,noncontributory to illness, Family hx of DM, Family hx of HTN Social History Smoker: Non-Smoker Alcohol: Denies ETOH Use Drugs: Denies Drug Use Lives In: Home Constitutional: reports: others (Fall); denies: chills, diaphoresis, fatigue, fever, malaise, sweats, weakness EENTM: denies: blurred vision, double vision, ear bleeding, ear discharge, ear drainage, ear pain, ear ringing, eye pain, eye redness, hearing loss, mouth pain, mouth swelling, nasal discharge, nose bleeding, nose congestion, nose pain, photophobia, tearing, throat pain, throat swelling, voice changes, others Respiratory: denies: cough, hemoptysis, orthopnea, SOB at rest, shortness of breath, SOB with excertion, stridor, wheezing, others Cardiovascular: denies: chest pain, dizzy spells, diaphoresis, Dyspnea on exertion, edema, irregular heart beat, left arm pain, lightheadedness, palpitations, PND, syncope, others Gastrointestinal: denies: abdomen distended, abdominal pain, blood streaked bowels, constipated, diarrhea, dysphagia, difficulty swallowing, hematemesis, melena, nausea, poor appetite, poor fluid intake, rectal bleeding, rectal pain, vomiting, others Genitourinary: denies: abnormal vagina bleeding, burning, dyspareunia, dysuria, flank pain, frequency, hematuria, incontinence, pain, , vagina discharge, urgency, others Neurological: denies: dizziness, fainting, headache, left sided numbness, left sided weakness, numbness, paresthesia, pre-existing deficit, right sided numbness, right sided weakness, seizure, speech problems, tingling, tremors, weakness, others Musculoskeletal: denies: back pain, gout, joint pain, joint swelling, muscle pain, muscle stiffness, neck pain, others Integumetry: denies: bruises, change in color, change in hair/nails, dryness, laceration, lesions, lumps, rash, wounds, others Allergic/Immunocompromised: denies: Difficulty Healing, Frequent Infections, Hives, Itching, others Hematologic/Lymphatic: denies: anemia, blood clots, easy bleeding, easy bruising, swollen glands, others Endocrine: denies: excessive hunger, excessive sweating, excessive thirst, excessive urination, flushing, intolerance to cold, intolerance to heat, unexp lained weight gain, unexplained weight loss, others Psychiatric: denies: anxiety, bipolar disorder, depression, hopeless, panic disorder, schizophrenia, sleepless, suicidal, others All Other Systems: Reviewed and Negative Physical Exam General Appearance: Moderate Distress, Thin HEENT: Normal ENT Inspection, Pharynx Normal, TMs Normal Neck: Full Range of Motion, Non-Tender, Normal, Normal Inspection Respiratory: Chest Non-Tender, Lungs Clear, No Accessory Muscle Use, No Respiratory Distress, Normal Breath Sounds Cardiovascular: No Edema, No JVD, No Murmur, No Gallop, Normal Peripheral Pulses, Regular Rate/Rhythm Breast Exam: Deferred Gastrointestinal: No Organomegaly, Non Tender, No Pulsatile Mass, Normal Bowel Sounds, Soft Genitalia: Deferred Pelvic: Deferred Rectal: Deferred Extremities: No calf tenderness, Normal capillary refill, No pedal edema Musculoskeletal : Apperance: Normal Neurologic: Alert, press tender II-XII nml as Tested, Motor Weakness, Normal Affect, Normal Mood, No Sensory Deficits Cerebellar Function: Normal Reflexes: Normal Skin: Dry, Normal Color, Warm Lymphatic: No Adenopathy Was a procedure done? Was a procedure done?: No Differential Dx Considerations may include: Blunt head trauma, generalized weakness, electrolyte imbalance, multiple falls X-Ray, Labs, Meds, VS Vital Signs Date Time Temp Pulse Resp B/P (MAP) Pulse Ox O2 Delivery O2 Flow Rate FiO2 12/28/24 11:40 98.0 112 16 91/68 (76) 98 98.0 Lab Test 12/28/24 13:02 Range/Units White Blood Count 8.6 4.4-10.8 10^3/uL Red Blood Count 3.88 L 4.0-5.20 10^6/uL Hemoglobin 10.8 L 12.2-16.2 g/dL Hematocrit 33.5 L 36.0-46.0 % Mean Corpuscular Volume 86.5 80.0-100.0 fL Mean Corpuscular Hemoglobin 27.8 L 28.0-32.0 pg Mean Corpuscular Hemoglobin Concent 32.2 32.0-36.0 g/dL Red Cell Distribution Width 13.9 11.8-14.3 % Platelet Count 307 140-450 10^3/uL Mean Platelet Volume 7.4 6.9-10.8 fL Neutrophils (%) (Auto) 60.5 37.0-80.0 % Lymphocytes (%) (Auto) 30.5 10.0-50.0 % Monocytes (%) (Auto) 7.5 0.0-12.0 % Eosinophils (%) (Auto) 0.9 0.0-7.0 % Basophils (%) (Auto) 0.6 0.0-2.0 % Neutrophils # (Auto) 5.2 1.6-8.6 10 ^3/uL Lymphocytes # (Auto) 2.6 0.4-5.4 10 ^3/uL Monocytes # (Auto) 0.6 0-1.3 10 ^3/uL Eosinophils # (Auto) 0.1 0-0.8 10 ^3/uL Basophils # (Auto) 0 0-0.2 10 ^3/uL Nucleated Red Blood Cells 0.1 % Sodium Level 140 136-145 mmol/L Potassium Level 4.0 3.5-5.1 mmol/L Chloride Level 103 98-107 mmol/L Carbon Dioxide Level 27 20-31 mmol/L Anion Gap 10 5-15 Blood Urea Nitrogen 24 H 9-23 mg/dL Creatinine 1.22 H 0.550-1.02 mg/dL Glomerular Filtration Rate Calc 47 >90 mL/min BUN/Creatinine Ratio 19.7 10.0-20.0 Serum Glucose 130 H 74-106 mg/dL Calcium Level 10.4 8.7-10.4 mg/dL Vitamin B6 Level Pending Vitamin B12 Level Pending Thyroid Stimulating Hormone (TSH) Pending The CBC is within normal limits The chemistry panel shows a BUN of 24 and a creatinine of 1.22. The patient is CAT scan of the head shows: IMPRESSION: 1. No CT evidence of acute intracranial abnormality. 2. Moderate right posterior scalp hematoma. 3. Nonacute findings as described above IV Hep-Lock was established The patient was being admitted to the hospitalist at this time The patient was somewhat hypotensive at 91/68 The patient understands and agrees with the management. Images Reviewed?: Images reviewed and evaluated by me Time of 1ST Reevaluation: 12:35 Reevaluation 1ST: Unchanged Patient Education/Counseling: Diagnosis, Treatment, Prognosis Family Education/Counseling: Diagnosis, Treatment, Prognosis Departure 1 Departure Time of Disposition: 15:01 Impression: Primary Impression: Multiple falls Additional Impression: Hypotension Qualified Codes: I95.9 - Hypotension, unspecified Disposition: 09 ADMITTED INPATIENT Admit to: Med Surg Condition: Fair Critical Care Note Critical Care Time?: No Stability Stability form required: Yes Unstable for transfer: ED Physician Assesment (Clinical assesment) Heart Score Heart Score: Heart Score Response (Comments) Value History N/A 0 EKG N/A 0 Age N/A 0 Risk Factors N/A 0 Troponin N/A 0 Total 0 I personally scribed for ANTIONE MEZA MD ([email or web address]) on 12/28/24 at 12:26. Electronically submitted by Addi Haque ([email or web address]). ANTIONE MEZA MD December 28, 2024 12:26
--- NOTE | 2024-12-28 12:58 | DVH ---
CLINICAL INFORMATION: Fall injury. TECHNIQUE: Axial imaging was obtained through the brain without contrast. Coronal and sagittal reform atted images were obtained, reviewed, and stored. Images were reviewed in brain and bone windows. Al l CT scans at this medical facility are performed using dose modulation techniques as appropriate to a performed exam including the following: Automated exposure control was utilized; adjustment of the MA and/or KV according to patient size; and use of iterative reconstruction technique. CTDIvol = 58.1 9 mGy DLP = 1146.77 mGy-cm COMPARISON: Report from prior CT dated 01/19/2022, images of which were not available for comparison at the time of dictation. FINDINGS: There is no acute intracranial hemorrhage. No mass effect or midline shift. Scattered areas of hypoattenuation are seen in the periventricular and subcortical white matter, which are nonspecif ic but most likely sequelae of small vessel ischemic disease. Encephalomalacia in the right cerebella r hemisphere, may be sequela of chronic infarct. The ventricles and sulci are within normal limits in size for age. Basal cisterns are patent. The calvarium is unremarkable. Paranasal sinuses and masto id air cells are clear. Moderate right posterior scalp hematoma. IMPRESSION: 1. No CT evidence of acute intracranial abnormality. 2. Moderate right posterior scalp hematoma. 3. Nonacute findings as described above
[2024-12-28 13:20] LABS: Basophils # (auto) 0 10 ^3/uL (0-0.2); Basophils % (auto) 0.6 % (0.0-2.0); Eosinophils # (auto) 0.1 10 ^3/uL (0-0.8); Eosinophils % (auto) 0.9 % (0.0-7.0); Hematocrit 33.5 % (36.0-46.0); Hemoglobin 10.8 g/dL (12.2-16.2); Lymphocytes # (auto) 2.6 10 ^3/uL (0.4-5.4); Lymphocytes % (auto) 30.5 % (10.0-50.0); Mean Corpuscular Hemoglobin 27.8 pg (28.0-32.0); Mean Corpuscular Hgb Conc. 32.2 g/dL (32.0-36.0); Mean Corpuscular Volume 86.5 fL (80.0-100.0); Monocytes # (auto) 0.6 10 ^3/uL (0-1.3); Monocytes % (auto) 7.5 % (0.0-12.0); Neutrophils # (auto) 5.2 10 ^3/uL (1.6-8.6); Neutrophils % (auto) 60.5 % (37.0-80.0); Nucleated Red Blood Cells % 0.1 %; Platelet Count (auto) 307 10^3/uL (140-450); Red Blood Cells 3.88 10^6/uL (4.0-5.20); Red Cell Distribution Width 13.9 % (11.8-14.3); White Blood Cell 8.6 10^3/uL (4.4-10.8)
[2024-12-28 13:24] LABS: Chloride 103 mmol/L (98-107); Sodium 140 mmol/L (136-145)
[2024-12-28 13:25] LABS: Anion Gap 10 (5-15); Carbon Dioxide 27 mmol/L (20-31)
[2024-12-28 13:26] LABS: Calcium 10.4 mg/dL (8.7-10.4)
[2024-12-28 13:30] LABS: BUN/Creatinine Ratio 19.7 (10.0-20.0)
[2024-12-28 13:31] LABS: Blood Urea Nitrogen 24 mg/dL (9-23); Glucose 130 mg/dL (74-106)
[2024-12-28] MEDS ORDERED: DEXTROSE (50%) 50ML SYRG IV PRN (14:00)
[2024-12-28] MEDS ORDERED: ONDANSETRON HCL 4 MG/2 ML VIAL IV PRN (14:00)
[2024-12-28] MEDS: LACTATED RINGER'S 1,000 ML IV ONE (14:00)
[2024-12-28] MEDS ORDERED: ACETAMINOPHEN 325 MG TAB PO PRN (14:00)
--- NOTE | 2024-12-28 14:45 | DVHHP2 ---
History of Present Illness History of Present Illness 69F presents to the Er w/ spouse who is blind and the pt having a prior MHx of CVA, Depression, DM, HTN, PE xLE;SHx of Leg Sx, Hysterectomy, Partial Lung Sx and the c/c of falls. Pt reports that she has been falling several times for the past 3 days, towards the back of her head. Pt notes that she falls back and not forward. Spouse states that the pt had a work incident 4 years ago where she fell back and had nerve issues due from that fall. Denies chills, fever, N/V/D, SOB, CP. No other associated symptoms, modifiers, recent injuries or sick c ontacts present at this time. Patient's falls have aura related to them. Sometimes she can see things on the don before she falls. The falls can sometimes have cataplexy prior to fall. No palpitations or feeling of skipping heart beats. Patient has had been having these episodes for past 4 years but very infrequent before past 3 days they have been occurring daily. One other recent falls have head trauma. Her is blind and is concerned. Patient falls are not any certain time of day, not always with standing, can happen at anytime of the day, not related to medication intake, no loss of consciousness, no seizure no, no bowel bladder loss, no tongue bite, no seizures,. No dizziness Cardiovascular: Other Review of Systems Review of Systems As HPI Allergies: Coded Allergies: NO KNOWN ALLERGIES (Unverified , 10/13/24) Exam Vital Signs Vital Signs Date Time Temp Pulse Resp B/P (MAP) Pulse Ox O2 Delivery O2 Flow Rate FiO2 12/28/24 11:40 98.0 112 16 91/68 (76) 98 98.0 Exam GEN: Healthy appearing, well-developed, NAD. HEENT: NC/AT; MMM. CV: RRR, no m/r/g. LUNGS: CTAB, no w/r/c. ABD: Soft, NT/ND, NBS, no masses or organomegaly. EXT: skin Warm, well perfused. no rashes. No clubbing, cyanosis, or edema. NEURO: Ambulating with no limitations. No focal deficits. Unsteady gait, Romberg positive. Cranial nerves 2-12 intact. Motor and sensation intact extremities X 4 Labs/Xrays Labs Test 12/28/24 13:02 Range/Units White Blood Count 8.6 4.4-10.8 10^3/uL Red Blood Count 3.88 L 4.0-5.20 10^6/uL Hemoglobin 10.8 L 12.2-16.2 g/dL Hematocrit 33.5 L 36.0-46.0 % Mean Corpuscular Volume 86.5 80.0-100.0 fL Mean Corpuscular Hemoglobin 27.8 L 28.0-32.0 pg Mean Corpuscular Hemoglobin Concent 32.2 32.0-36.0 g/dL Red Cell Distribution Width 13.9 11.8-14.3 % Platelet Count 307 140-450 10^3/uL Mean Platelet Volume 7.4 6.9-10.8 fL Neutrophils (%) (Auto) 60.5 37.0-80.0 % Lymphocytes (%) (Auto) 30.5 10.0-50.0 % Monocytes (%) (Auto) 7.5 0.0-12.0 % Eosinophils (%) (Auto) 0.9 0.0-7.0 % Basophils (%) (Auto) 0.6 0.0-2.0 % Neutrophils # (Auto) 5.2 1.6-8.6 10 ^3/uL Lymphocytes # (Auto) 2.6 0.4-5.4 10 ^3/uL Monocytes # (Auto) 0.6 0-1.3 10 ^3/uL Eosinophils # (Auto) 0.1 0-0.8 10 ^3/uL Basophils # (Auto) 0 0-0.2 10 ^3/uL Nucleated Red Blood Cells 0.1 % Sodium Level 140 136-145 mmol/L Potassium Level 4.0 3.5-5.1 mmol/L Chloride Level 103 98-107 mmol/L Carbon Dioxide Level 27 20-31 mmol/L Anion Gap 10 5-15 Blood Urea Nitrogen 24 H 9-23 mg/dL Creatinine 1.22 H 0.550-1.02 mg/dL Glomerular Filtration Rate Calc 47 >90 mL/min BUN/Creatinine Ratio 19.7 10.0-20.0 Serum Glucose 130 H 74-106 mg/dL Calcium Level 10.4 8.7-10.4 mg/dL Assessment/Plan Assessment/Plan presyncope with frequent falls and head trauma Cataplexy possible Iatrogenic/polysubstance cause a false possible Aura with hallucinations, related to falls CHRIS due to VMN Rule out fatal arrhythmias ICH ruled out Tachycardia On chronic oral anticoagulation (Eliquis), ? For history of PE - constipation chronic with decreased p.o. intake/p.o. intolerance History CVA History PID, left leg stent History depression, Diabetes Hypertension ? History PE - continue Eliquis, hospitalist to initiate risk benefit discussion given patient is having falls and on anticoagulation, high-risk for intracranial bleed -orthostatics test Continue telemetry PT eval Neurology consult rule out reversible organic causes of aura and cataplexy related to falls - telepsych eval for psychiatric nature of falls - hypertension,-continue chlorthalidone, continue losartan, hold Lopressor (no history of AFib) -fall risk, bedrest, bed alarm - start bowel regimen for constipation - hold diabetes p.o. medications start sliding scale insulin a.c. HS mild - on multiple SSRI/SNRI-we will hold citalopram and continue venlafaxine equivalent. - IV resuscitation fluid hydration - lab check B12 tsh b6,? consider Lead levels, consider VDRL Continue other home medications. Continue Plavix, continue gabapentin Diet diabetic DVT prophylaxis-Eliquis home med GI prophylaxis-Protonix Telemetry Full code Plan discussed with: Patient, Spouse Date of Service: December 28, 2024 Billing Provider: CARLIN KWON MD Common Visit Codes: 05460-[id number] INP/OBS CARE (HIGH) Secondary Visit Codes: 04441-[id number] CARE PLAN 30 MINUTES CARLIN KWON MD December 28, 2024 14:45
[2024-12-28] MEDS: ACCU-CHEK COMFORT CURVE STRIP VI SCH (17:00)
[2024-12-28] MEDS: InsuLIN REG 1unit/0.01ml Soln (100units/ml) SC SCH (17:00)
[2024-12-28] MEDS: POLYETHYLENE GLYCOL 17 GM PWDR PO ONE (18:53)
[2024-12-28] MEDS: DOCUSATE SOD 100 MG CAP PO ONE (18:53)
[2024-12-28] MEDS: PANTOPRAZOLE 40 MG/10 ML VIAL INJ IV ONE (18:54)
[2024-12-28] MEDS: POLYETHYLENE GLYCOL 17 GM PWDR PO SCH (19:15)
[2024-12-28] MEDS: DOCUSATE SOD 100 MG CAP PO SCH (19:15)
[2024-12-28 19:42] VITALS: RESP 18; O2SAT 98
[2024-12-28 20:03] VITALS: BP 116/83; PULSE 85; RESP 19; TEMP 98.6; O2SAT 94
[2024-12-28] MEDS ORDERED: VENL150T34 PO (20:37)
[2024-12-28 21:00] VITALS: BP 116/83; PULSE 91; RESP 20; TEMP 97.8; O2SAT 97
[2024-12-28] MEDS: APIXABAN 5 MG TAB PO SCH (22:11)
[2024-12-29] VITALS (8 sets, daily range): BP systolic 104–159; BP diastolic 66–86; PULSE 63–118; RESP 16–20; TEMP 97.6–97.9; O2SAT 94–98
[2024-12-29 02:15] LABS: Urine Bacteria None Seen /hpf (None Seen)
[2024-12-29 02:32] LABS: Urine Blood Negative /uL (Negative); Urine Budding Yeast OCCASIONAL /hpf (None Seen); Urine Clarity Clear (Clear); Urine Color Light-Yellow (Yellow); Urine Protein, UAD Negative (Negative); Urine Specific Gravity 1.013 (1.001-1.035); Urine Squamous Epithelial Cell FEW /hpf (<5); Urine Urobilinogen Normal (Negative); Urine WBC < 1 /HPF (0-5)
[2024-12-29 02:42] LABS: Phencyclidine Screen, Urine Neg (NEGATIVE)
[2024-12-29 03:15] LABS: Amphetamine Screen, Urine Neg (NEGATIVE); Barbiturate Scree,Urine Neg (NEGATIVE); Benzodiazephine Screen, Urine Neg (NEGATIVE); Cannabinoid Screen, Urine Neg (NEGATIVE); Cocaine Screen, Urine Neg (NEGATIVE); Opiate Scree,Urine Neg (NEGATIVE)
[2024-12-29 05:45] LABS: Basophils # (auto) 0 10 ^3/uL (0-0.2); Basophils % (auto) 0.4 % (0.0-2.0); Eosinophils # (auto) 0.1 10 ^3/uL (0-0.8); Eosinophils % (auto) 1.5 % (0.0-7.0); Hematocrit 31.8 % (36.0-46.0); Hemoglobin 10.4 g/dL (12.2-16.2); Lymphocytes # (auto) 2.4 10 ^3/uL (0.4-5.4); Mean Corpuscular Hemoglobin 28.5 pg (28.0-32.0); Mean Corpuscular Hgb Conc. 32.9 g/dL (32.0-36.0); Mean Corpuscular Volume 86.7 fL (80.0-100.0); Monocytes # (auto) 0.9 10 ^3/uL (0-1.3); Monocytes % (auto) 9.4 % (0.0-12.0); Neutrophils # (auto) 5.8 10 ^3/uL (1.6-8.6); Neutrophils % (auto) 62.7 % (37.0-80.0); Nucleated Red Blood Cells % 0.1 %; Platelet Count (auto) 311 10^3/uL (140-450); Red Blood Cells 3.67 10^6/uL (4.0-5.20); Red Cell Distribution Width 13.8 % (11.8-14.3); White Blood Cell 9.3 10^3/uL (4.4-10.8)
[2024-12-29 06:04] LABS: Alanine Aminotransferase < 9 U/L (7-40); Albumin 4.2 g/dL (3.2-4.8); Alkaline Phosphatase 93 U/L (46-116); Anion Gap 10 (5-15); Aspartate Aminotransferase 13 U/L (13-40); BUN/Creatinine Ratio 19.4 (10.0-20.0); Blood Urea Nitrogen 20 mg/dL (9-23); Calcium 10.2 mg/dL (8.7-10.4); Carbon Dioxide 28 mmol/L (20-31); Chloride 103 mmol/L (98-107); Glucose 87 mg/dL (74-106); Potassium 3.9 mmol/L (3.5-5.1); Sodium 141 mmol/L (136-145); Total Protein 6.9 g/dL (5.7-8.2)
[2024-12-29 06:05] LABS: Bilirubin, Total 0.7 mg/dL (0.2-1.0)
[2024-12-29] MEDS: CHLORTHALIDONE 25 MG TAB PO SCH (09:00)
[2024-12-29] MEDS: GABAPENTIN 300 MG CAP PO SCH (09:00)
[2024-12-29] MEDS: CLOPIDOGREL BISULFATE 75 MG TAB PO SCH (09:01)
[2024-12-29] MEDS: LOSARTAN POTASSIUM 50 MG TAB PO SCH (09:01)
[2024-12-29] MEDS: PANTOPRAZOLE 40 MG/10 ML VIAL INJ IV SCH (09:02)
[2024-12-29] MEDS: VENLAFAXINE HYDROCHLORIDE PO SCH (09:02)
--- NOTE | 2024-12-29 17:47 | DVHPN2 ---
Subjective Update 12/29 -today patient worked with PT and froze up again. Almost like cataplexy, where she was able to speak but muscles do not move. We will keep an eye on CKD and have follow up with neuro and telepsych. Otherwise she was swallowing okay will advance diet to regular diabetic. Keep an eye on sugars with a.cGisela HS SSI. Follow up with the recommendations from specialties tomorrow. Continue PT meanwhile. We will hold off on considering muscle relaxants until neurology eval. Reviewed: H&P Changes from previous H/P or p: No Changes General: Per HPI Objective Vitals Vital Signs Date Time Temp Pulse Resp B/P (MAP) Pulse Ox O2 Delivery O2 Flow Rate FiO2 12/29/24 17:00 97.6 76 17 131/86 (101) 95 97.6 12/29/24 08:00 Room Air* 0 21 Intake/Output Intake and Output 12/29/24 07:00 Intake Total 120 ml Balance 120 ml Intake Oral 120 ml # Voids 2 Exam GEN: Healthy appearing, well-developed, NAD. HEENT: NC/AT; MMM. CV: RRR, no m/r/g. LUNGS: CTAB, no w/r/c. ABD: Soft, NT/ND, NBS, no masses or organomegaly. EXT: skin Warm, well perfused. no rashes. No clubbing, cyanosis, or edema. NEURO: Ambulating with no limitations. No focal deficits. Unsteady gait, Romberg positive. Cranial nerves 2-12 intact. Motor and sensation intact extremities X 4 Medications Current Medications Medications Dose Ordered Sig/Miller Route Start Time Stop Time Status Last Admin Dose Admin Acetaminophen/ Hydrocodone Bitart 1 tab Q4HP PRN PO 12/28/24 14:00 Ondansetron HCl 4 mg Q4HP PRN IV 12/28/24 14:00 Acetaminophen 650 mg Q6HP PRN PO 12/28/24 14:00 Diagnostic Test (Pha) 1 strip ACHS 12/28/24 17:00 12/29/24 17:30 1 STRIP Insulin Human Regular ACHS SC 12/28/24 17:00 12/28/24 22:19 3 UNITS Dextrose 50 ml UD PRN IV 12/28/24 14:00 Polyethylene Glycol 17 gm BID PO 12/28/24 22:00 12/29/24 09:02 17 GM Docusate Sodium 100 mg BID PO 12/28/24 22:00 12/29/24 09:01 100 MG Pantoprazole Sodium 40 mg DAILY IV 12/29/24 10:00 Apixaban 5 mg BID PO 12/28/24 22:00 12/29/24 09:01 5 MG Chlorthalidone 25 mg DAILY PO 12/29/24 10:00 12/29/24 09:00 25 MG Clopidogrel Bisulfate 75 mg DAILY PO 12/29/24 10:00 12/29/24 09:01 75 MG Gabapentin 300 mg DAILY PO 12/29/24 10:00 12/29/24 09:00 300 MG Losartan Potassium 100 mg DAILY PO 12/29/24 10:00 12/29/24 09:01 100 MG Patient Own Medication 225 mg DAILY PO 12/29/24 10:00 Laboratory Results Laboratory Tests 12/29/24 05:24 Chemistry Test 12/29/24 05:24 Albumin 4.2 g/dL (3.2-4.8) Calcium Level 10.2 mg/dL (8.7-10.4) Total Protein 6.9 g/dL (5.7-8.2) LFT Test 12/29/24 05:24 Alanine Aminotransferase (ALT) < 9 U/L (7-40) Alkaline Phosphatase 93 U/L (46-116) Aspartate Amino Transferase (AST) 13 U/L (13-40) Total Bilirubin 0.7 mg/dL (0.2-1.0) Urinalysis Test 12/29/24 02:10 Urine Color Light-yellow (Yellow) Urine Clarity Clear (Clear) Urine pH 7.0 (5.0-9.0) Urine Specific [place] 1.013 (1.001-1.035) Urine Protein Negative (Negative) Urine Ketones Negative (Negative) Urine Blood Negative /uL (Negative) Urine Nitrite Negative (Negative) Urine Bilirubin Negative (Negative) Urine Urobilinogen Normal mg/dL (Negative) Urine Leukocyte Esterase Negative /uL (Negative) Urine RBC <1 /hpf (0 - 4) Urine Microscopic WBC < 1 /HPF (0-5) Urine Squamous Epithelial Cells Few /hpf (<5) Urine Bacteria None seen /hpf (None Seen) Urine Yeast (Budding) Occasional /hpf (None Urine Glucose 4+ mg/dL (Normal) H Labs and/or images reviewed: Labs reviewed by me, Image(s) reviewed by me Assessment/Plan Assessment/Plan Update 12/29 -today patient worked with PT and froze up again. Almost like cataplexy, where she was able to speak but muscles do not move. We will keep an eye on CKD and have follow up with neuro and telepsych. Otherwise she was swallowing okay will advance diet to regular diabetic. Keep an eye on sugars with a.c. HS SSI. Follow up with the recommendations from specialties tomorrow. Continue PT meanwhile. We will hold off on considering muscle relaxants until neurology eval. 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 For history of PE - constipation chronic with decreased p.o. intake/p.o. intolerance History CVA History PID, left leg stent History depression, Diabetes Hypertension ? History PE - continue Eliquis, hospitalist to initiate risk benefit discussion given patient is having falls and on anticoagulation, high-risk for intracranial bleed -orthostatics test Continue telemetry PT eval Neurology consult rule out reversible organic causes of aura and cataplexy related to falls - telepsych eval for psychiatric nature of falls - hypertension,-continue chlorthalidone, continue losartan, hold Lopressor (no history of AFib) -fall risk, bedrest, bed alarm - start bowel regimen for constipation - hold diabetes p.o. medications start sliding scale insulin a.c. HS mild - on multiple SSRI/SNRI-we will hold citalopram and continue venlafaxine equivalent. - IV resuscitation fluid hydration - lab check B12 tsh b6,? consider Lead levels, consider VDRL Continue other home medications. Continue Plavix, continue gabapentin Diet diabetic DVT prophylaxis-Eliquis home med GI prophylaxis-Protonix Telemetry Full code Plan discussed with: Patient My Orders Orders - CARLIN KWON MD Procedure Category Date Status Time Consistent DIET 12/29/24 Transmitted Carb([facility])Diabetes Dinner Date of Service: December 29, 2024 Billing Provider: CARLIN KWON MD Common Visit Codes: [id number] INP/OBS CARE(HIGH) CARLIN KWON MD December 29, 2024 17:47
[2024-12-30] VITALS (9 sets, daily range): BP systolic 91–121; BP diastolic 50–84; PULSE 97–125; RESP 12–19; TEMP 97.5–97.9; O2SAT 92–98
[2024-12-30] MEDS: HYDROcodone-ACET 5/325MG TAB PO PRN (01:56)
[2024-12-30 07:27] LABS: Basophils # (auto) 0 10 ^3/uL (0-0.2); Basophils % (auto) 0.4 % (0.0-2.0); Eosinophils # (auto) 0.1 10 ^3/uL (0-0.8); Eosinophils % (auto) 1.4 % (0.0-7.0); Hemoglobin 10.9 g/dL (12.2-16.2); Lymphocytes # (auto) 2.4 10 ^3/uL (0.4-5.4); Lymphocytes % (auto) 28.4 % (10.0-50.0); Mean Corpuscular Hemoglobin 28.9 pg (28.0-32.0); Mean Corpuscular Hgb Conc. 33.1 g/dL (32.0-36.0); Mean Corpuscular Volume 87.5 fL (80.0-100.0); Monocytes # (auto) 0.8 10 ^3/uL (0-1.3); Monocytes % (auto) 9.3 % (0.0-12.0); Neutrophils # (auto) 5.1 10 ^3/uL (1.6-8.6); Neutrophils % (auto) 60.5 % (37.0-80.0); Nucleated Red Blood Cells % 0.1 %; Platelet Count (auto) 296 10^3/uL (140-450); Red Blood Cells 3.77 10^6/uL (4.0-5.20); Red Cell Distribution Width 13.6 % (11.8-14.3); White Blood Cell 8.5 10^3/uL (4.4-10.8)
[2024-12-30 07:29] LABS: Alanine Aminotransferase 10 U/L (7-40); Albumin 4.1 g/dL (3.2-4.8); Alkaline Phosphatase 96 U/L (46-116); Anion Gap 11 (5-15); Aspartate Aminotransferase 17 U/L (13-40); BUN/Creatinine Ratio 15.7 (10.0-20.0); Blood Urea Nitrogen 16 mg/dL (9-23); Calcium 10.4 mg/dL (8.7-10.4); Carbon Dioxide 26 mmol/L (20-31); Chloride 101 mmol/L (98-107); Creatine Kinase IFCC 69 U/L (34-145); Potassium 4.1 mmol/L (3.5-5.1); Sodium 138 mmol/L (136-145)
[2024-12-30 07:30] LABS: Bilirubin, Total 0.7 mg/dL (0.2-1.0)
[2024-12-30 07:32] LABS: Glucose 132 mg/dL (74-106)
[2024-12-30] MEDS: LACTATED RINGER'S 500 ML IV ONE (12:58)
--- NOTE | 2024-12-30 15:35 | DVHINCON2 ---
Date of Service if different f: December 30, 2024 Time of Service: 14:56 Consultation ([facility]) Consulting Physician: ARTURO SARABIA MD Labs Laboratory Tests Test 12/28/24 13:02 12/28/24 15:02 12/29/24 02:10 12/30/24 05:43 Vitamin B12 Level 822 pg/mL (211-911) Thyroid Stimulating Hormone (TSH) 3.13 uIU/mL (0.55-4.78) Urine Color Light-yellow (Yellow) Urine Clarity Clear (Clear) Urine pH 7.0 (5.0-9.0) Urine Specific [place] 1.013 (1.001-1.035) Urine Protein Negative (Negative) Urine Ketones Negative (Negative) Urine Blood Negative /uL (Negative) Urine Nitrite Negative (Negative) Urine Bilirubin Negative (Negative) Urine Urobilinogen Normal mg/dL (Negative) Urine Leukocyte Esterase Negative /uL (Negative) Urine RBC <1 /hpf (0 - 4) Urine Microscopic WBC < 1 /HPF (0-5) Urine Squamous Epithelial Cells Few /hpf (<5) Urine Bacteria None seen /hpf (None Seen) Urine Yeast (Budding) Occasional /hpf (None Urine Glucose 4+ mg/dL (Normal) Urine Opiates Screen Neg (NEGATIVE) Urine Fentanyl Screen Neg (NEGATIVE) Urine Barbiturates Screen Neg (NEGATIVE) Urine Phencyclidine Screen Neg (NEGATIVE) Urine Amphetamines Screen Neg (NEGATIVE) Urine Benzodiazepines Screen Neg (NEGATIVE) Urine Cocaine Screen Neg (NEGATIVE) Urine Cannabinoids Screen Neg (NEGATIVE) Bedside Glucose 127 mg/dl (70-106) Test 12/30/24 06:21 White Blood Count 8.5 10^3/uL (4.4-10.8) Red Blood Count 3.77 10^6/uL (4.0-5.20) Hemoglobin 10.9 g/dL (12.2-16.2) Hematocrit 33.0 % (36.0-46.0) Mean Corpuscular Volume 87.5 fL (80.0-100.0) Mean Corpuscular Hemoglobin 28.9 pg (28.0-32.0) Mean Corpuscular Hemoglobin Concent 33.1 g/dL (32.0-36.0) Red Cell Distribution Width 13.6 % (11.8-14.3) Platelet Count 296 10^3/uL (140-450) Mean Platelet Volume 7.5 fL (6.9-10.8) Neutrophils (%) (Auto) 60.5 % (37.0-80.0) Lymphocytes (%) (Auto) 28.4 % (10.0-50.0) Monocytes (%) (Auto) 9.3 % (0.0-12.0) Eosinophils (%) (Auto) 1.4 % (0.0-7.0) Basophils (%) (Auto) 0.4 % (0.0-2.0) Neutrophils # (Auto) 5.1 10 ^3/uL (1.6-8.6) Lymphocytes # (Auto) 2.4 10 ^3/uL (0.4-5.4) Monocytes # (Auto) 0.8 10 ^3/uL (0-1.3) Eosinophils # (Auto) 0.1 10 ^3/uL (0-0.8) Basophils # (Auto) 0 10 ^3/uL (0-0.2) Nucleated Red Blood Cells 0.1 % Sodium Level 138 mmol/L (136-145) Potassium Level 4.1 mmol/L (3.5-5.1) Chloride Level 101 mmol/L (98-107) Carbon Dioxide Level 26 mmol/L (20-31) Anion Gap 11 (5-15) Blood Urea Nitrogen 16 mg/dL (9-23) Creatinine 1.02 mg/dL (0.550-1.02) Glomerular Filtration Rate Calc 59 mL/min (>90) BUN/Creatinine Ratio 15.7 (10.0-20.0) Serum Glucose 132 mg/dL (74-106) Calcium Level 10.4 mg/dL (8.7-10.4) Total Bilirubin 0.7 mg/dL (0.2-1.0) Aspartate Amino Transf (AST/SGOT) 17 U/L (13-40) Alanine Aminotransferase (ALT/SGPT) 10 U/L (7-40) Alkaline Phosphatase 96 U/L (46-116) Creatine Kinase 69 U/L (34-145) Total Protein 7.0 g/dL (5.7-8.2) Albumin 4.1 g/dL (3.2-4.8) Appearance: Stated age Psychomotor activity: WNL Behavioral: Cooperative Eye contact: Appropriate Speech: WNL Affect: Appropriate, Mood Congruent Mood: Euthymic Thought processes: Linear/Goal-directed Thought content: WNL Orientation: Person, Place, Time, Situation Memory intact: Recent Intellect: Average Abstractability: WNL Concentration: Adequate Attention: Adequate Judgement: WNL Insight: Good Vitals Vital Signs Date Time Temp Pulse Resp B/P (MAP) Pulse Ox O2 Delivery O2 Flow Rate FiO2 12/30/24 09:07 108/66 12/30/24 09:00 97.5 125 19 95 97.5 12/30/24 08:00 Room Air* 0 21 Current medications Current Medications Medications Dose Ordered Sig/Miller Route Start Time Stop Time Status Last Admin Dose Admin Acetaminophen/ Hydrocodone Bitart 1 tab Q4HP PRN PO 12/28/24 14:00 12/30/24 01:56 1 TAB Ondansetron HCl 4 mg Q4HP PRN IV 12/28/24 14:00 Acetaminophen 650 mg Q6HP PRN PO 12/28/24 14:00 Diagnostic Test (Pha) 1 strip ACHS 12/28/24 17:00 12/30/24 11:24 1 STRIP Insulin Human Regular ACHS SC 12/28/24 17:00 12/30/24 11:25 3 UNITS Dextrose 50 ml UD PRN IV 12/28/24 14:00 Polyethylene Glycol 17 gm BID PO 12/28/24 22:00 12/29/24 21:53 17 GM Docusate Sodium 100 mg BID PO 12/28/24 22:00 12/30/24 09:06 100 MG Pantoprazole Sodium 40 mg DAILY IV 12/29/24 10:00 12/30/24 09:07 40 MG Apixaban 5 mg BID PO 12/28/24 22:00 12/30/24 09:07 5 MG Chlorthalidone 25 mg DAILY PO 12/29/24 10:00 12/30/24 09:07 25 MG Clopidogrel Bisulfate 75 mg DAILY PO 12/29/24 10:00 12/30/24 09:07 75 MG Gabapentin 300 mg DAILY PO 12/29/24 10:00 12/30/24 09:07 300 MG Losartan Potassium 100 mg DAILY PO 12/29/24 10:00 12/30/24 09:07 100 MG Patient Own Medication 225 mg DAILY PO 12/29/24 10:00 Treatment plan discussed: With staff Medication adjusted: Yes Labs ordered: No Psychotherapy provided: Yes Type: Voluntary History of Present Illness Reason for Consult : psychiatric evaluation PER H&P: 69F presents to the Er w/ spouse who is blind and the pt having a prior MHx of CVA, Depression, DM, HTN, PE xLE;SHx of Leg Sx, Hysterectomy, Partial Lung Sx and the c/c of falls. Pt reports that she has been falling several times for the past 3 days, towards the back of her head. Pt notes that she falls back and not forward. Spouse states that the pt had a work incident 4 years ago where she fell back and had nerve issues due from that fall. Denies chills, fever, N/V/D, SOB, CP. No other associated symptoms, modifiers, recent injuries or sick contacts present at this time. Patient's falls have aura related to them. Sometimes she can see things on the don before she falls. The falls can sometimes have cataplexy prior to fall. No palpitations or feeling of skipping heart beats. Patient has had been having these episodes for past 4 years but very infrequent before past 3 days they have been occurring daily. One other recent falls have head trauma. Her is blind and is concerned. Patient falls are not any certain time of day, not always with standing, can happen at anytime of the day, not related to medication intake, no loss of consciousness, no seizure no, no bowel bladder loss, no tongue bite, no seizures,. No dizziness PSYCHIATRIST HPI: The patient was seen and evaluated at [facility] ED via telepsychiatry platform. 69 yr old female reported "something goes haywire in my head and I fall." She stated she sees friendly things prior to falling. For instance, she will see something bright or lares and will freeze up and then fall. She stated she is standing and can't move but can see everything. She stated that four years ago she tripped and fell on her face and had extensive lacerations on her mouth and forehead and fractured some teeth. She had migraines and neck pain after that. She had been started on gabapentin for the pain which got rid of the pain but led to her having some balance issues. She stated she had been on anxiety medications for quite a while. She stated she sees visual hallucinations at night seeing circuses and animals in her backyard when she wakes up in the middle of the night. She denied having suicidal and homicidal ideation and auditory hallucinations. Past Psychiatric History : Diagnosed with anxiety. No h/o hospitalizations or suicide attempts. Past Medical History: CVA in 1992, Depression, DM, HTN, PE xLE;SHx of Leg Sx, Hysterectomy, Partial Lung surgery Current Medications: Effexor XR 225 mg qam, Citalopram 40mg qhs, gabapentin 100mg once or twice daily at home and TID in hospital NKDA Substance use: Denied alcohol and other substance use. Social History : Lives in [place] with . 38 yrs, no biological children, but ten foster children in past. Retired. Worked as social workers. Diagnosis: UNSPECIFIED ANXIETY DISORDER Formulation: This 69 yr old female appears to suffer from anxiety. She takes venlafaxine in the morning and citalopram at night. The combination of the two serotonergic meds increase her risk of serotonin syndrome which includes symptoms of hallucinations, dizziness and seizures. It is possible her nighttime dose of citalopram is contributing to her having visual hallucinations when she wakes up in the middle of the night (while they could be hypnapompic halluc inations which occur while people are waking up). I would recommend sticking with just venlafaxine for her anxiety and adding in regular gabapentin to augment if she still has anxiety. Plan: 1. Transfer to behavioral health unit for observation stabilization and treatment. 2. Legal-Voluntary, but he meets criteria for 5150 involuntary hold for danger to self. 3. Medication: recommend holding citalopram as the combination of citalopram and venlafaxine increases the risk for serotonin syndrome. Continue Venlafaxine XR 225mg qam and consider 4. Contact psychiatry if further follow up or reevaluation is desired. 5. Case discussed with team GERONIMO Nixon. Assessment/Diagnosis/Plan Reviewed: Labs, Medications, Previous Orders ARTURO SARABIA MD December 30, 2024 14:58
--- NOTE | 2024-12-30 16:57 | DVHPN2 ---
Subjective Update 12/30 12/29 -today patient worked with PT and froze up again. Almost like cataplexy, where she was able to speak but muscles do not move. We will keep an eye on CKD and have follow up with neuro and telepsych. Otherwise she was swallowing okay will advance diet to regular diabetic. Keep an eye on sugars with a.cGisela HS SSI. Follow up with the recommendations from specialties tomorrow. Continue PT meanwhile. We will hold off on considering muscle relaxants until neurology eval. 12/30-patient ambulating with PT better today,. No episodes of stiffening/freezing. Psych consult today. Holding off SSRI. Neurology consult pending. We will continue PT. Follow up on CK levels. Reviewed: H&P Changes from previous H/P or p: No Changes General: Per HPI Objective Vitals Vital Signs Date Time Temp Pulse Resp B/P (MAP) Pulse Ox O2 Delivery O2 Flow Rate FiO2 12/30/24 09:07 108/66 12/30/24 09:00 97.5 125 19 95 97.5 12/30/24 08:00 Room Air* 0 21 Intake/Output Intake and Output 12/30/24 07:00 Intake Total 1195 ml Balance 1195 ml Intake Oral 1195 ml # Voids 7 Exam GEN: Healthy appearing, well-developed, NAD. HEENT: NC/AT; MMM. CV: RRR, no m/r/g. LUNGS: CTAB, no w/r/c. ABD: Soft, NT/ND, NBS, no masses or organomegaly. EXT: skin Warm, well perfused. no rashes. No clubbing, cyanosis, or edema. NEURO: Ambulating with no limitations. No focal deficits. Unsteady gait, Romberg positive. Cranial nerves 2-12 intact. Motor and sensation intact extremities X 4 Medications Current Medications Medications Dose Ordered Sig/Miller Route Start Time Stop Time Status Last Admin Dose Admin Acetaminophen/ Hydrocodone Bitart 1 tab Q4HP PRN PO 12/28/24 14:00 12/30/24 01:56 1 TAB Ondansetron HCl 4 mg Q4HP PRN IV 12/28/24 14:00 Acetaminophen 650 mg Q6HP PRN PO 12/28/24 14:00 Diagnostic Test (Pha) 1 strip ACHS 12/28/24 17:00 12/30/24 16:45 1 STRIP Insulin Human Regular ACHS SC 12/28/24 17:00 12/30/24 11:25 3 UNITS Dextrose 50 ml UD PRN IV 12/28/24 14:00 Polyethylene Glycol 17 gm BID PO 12/28/24 22:00 12/29/24 21:53 17 GM Docusate Sodium 100 mg BID PO 12/28/24 22:00 12/30/24 09:06 100 MG Pantoprazole Sodium 40 mg DAILY IV 12/29/24 10:00 12/30/24 09:07 40 MG Apixaban 5 mg BID PO 12/28/24 22:00 12/30/24 09:07 5 MG Chlorthalidone 25 mg DAILY PO 12/29/24 10:00 12/30/24 09:07 25 MG Clopidogrel Bisulfate 75 mg DAILY PO 12/29/24 10:00 12/30/24 09:07 75 MG Gabapentin 300 mg DAILY PO 12/29/24 10:00 12/30/24 09:07 300 MG Losartan Potassium 100 mg DAILY PO 12/29/24 10:00 12/30/24 09:07 100 MG Patient Own Medication 225 mg DAILY PO 12/29/24 10:00 Laboratory Results Laboratory Tests 12/30/24 06:21 Chemistry Test 12/30/24 06:21 Albumin 4.1 g/dL (3.2-4.8) Calcium Level 10.4 mg/dL (8.7-10.4) Total Protein 7.0 g/dL (5.7-8.2) LFT Test 12/30/24 06:21 Alanine Aminotransferase (ALT) 10 U/L (7-40) Alkaline Phosphatase 96 U/L (46-116) Aspartate Amino Transferase (AST) 17 U/L (13-40) Total Bilirubin 0.7 mg/dL (0.2-1.0) Urinalysis Test 12/29/24 02:10 Urine Color Light-yellow (Yellow) Urine Clarity Clear (Clear) Urine pH 7.0 (5.0-9.0) Urine Specific [place] 1.013 (1.001-1.035) Urine Protein Negative (Negative) Urine Ketones Negative (Negative) Urine Blood Negative /uL (Negative) Urine Nitrite Negative (Negative) Urine Bilirubin Negative (Negative) Urine Urobilinogen Normal mg/dL (Negative) Urine Leukocyte Esterase Negative /uL (Negative) Urine RBC <1 /hpf (0 - 4) Urine Microscopic WBC < 1 /HPF (0-5) Urine Squamous Epithelial Cells Few /hpf (<5) Urine Bacteria None seen /hpf (None Seen) Urine Yeast (Budding) Occasional /hpf (None Urine Glucose 4+ mg/dL (Normal) H Labs and/or images reviewed: Labs reviewed by me, Image(s) reviewed by me Assessment/Plan Assessment/Plan Update 12/30-patient ambulating with PT better today,. No episodes of stiffening/freezing. Psych consult today. Holding off SSRI. Neurology consult pending. We will continue PT. Follow up on CK levels. 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 For history of PE - constipation chronic with decreased p.o. intake/p.o. intolerance History CVA History PID, left leg stent History depression, Diabetes Hypertension ? History PE - continue Eliquis, hospitalist to initiate risk benefit discussion given patient is having falls and on anticoagulation, high-risk for intracranial bleed -orthostatics test Continue telemetry PT eval Neurology consult rule out reversible organic causes of aura and cataplexy related to falls - telepsych eval for psychiatric nature of falls - hypertension,-continue chlorthalidone, continue losartan, hold Lopressor (no history of AFib) -fall risk, bedrest, bed alarm - start bowel regimen for constipation - hold diabetes p.o. medications start sliding scale insulin a.c. HS mild - on multiple SSRI/SNRI-we will hold citalopram and continue venlafaxine equivalent. - IV resuscitation fluid hydration - lab check B12 tsh b6,? consider Lead levels, consider VDRL Continue other home medications. Continue Plavix, continue gabapentin Diet diabetic DVT prophylaxis-Eliquis home med GI prophylaxis-Protonix Telemetry Full code Plan discussed with: Patient My Orders Orders - CARLIN KWON MD Procedure Category Date Status Time * Neurology Consult CONS 12/30/24 Transmitted 09:49 Soc Telemed Psych CONS 12/30/24 Transmitted Consult 12:47 Date of Service: December 30, 2024 Billing Provider: CARLIN KWON MD Common Visit Codes: [id number] INP/OBS CARE(HIGH) CARLIN KWON MD December 30, 2024 16:57
--- NOTE | 2024-12-30 21:27 | DVHINCON2 ---
Date of service: December 30, [address] Sandra Moncada Reason for Consultation Rule out reversible organic causes of aura and cataplexy related to falls History of Present Illness Ms. Marcus is a 69 years old right-handed female with a history of hypertension, diabetes, chronic stroke, depression, she was admitted to the [facility] [place] on 12/28/2024 with a chief complaint of general weakness, falls, but the patient also has other complaints Recurrent falls Onset: 2020 Possible cause the condition: Unknown, she reports she tripped had fell down at work in 2020, without altered mental status. Since she has recurrent falling backwards, at the beginning once every 2-3 month, since early 2023, once monthly, more frequent since 12/2024, she had fall once daily on 12/25/24, 12/26/2024, 12/27/2024. She relates the fall is preceded by visual hallucin ation where she sees lights be handling objects, cracks in the floor, things crawling on the floor, but there is no altered mental status/confusion associated with the falls Triggers: None Worsened by: None Relieved: None Previous evaluation: Non before this admission Muscle stiffness Onset: 2020 Possible cause the condition: Unknown Symptoms: She was spells of muscle tightness in the neck, bilateral shoulders, chest lasting for 15 hours, 4 times weekly. Triggers: None this happened no matter when she is sitting, resting in bed, or physically active Worsened by: None Relieved by: None Previous evaluation: None Sleep-related breathing disorder/Fatigue/hypersomnia Onset: 2020 Possible cause the condition: None Symptoms: Coincidentally after she retired from work four years ago, she was have chronic fatigue, hypersomnia, she used to sleep 7 hours, but since 2020, 10 hours. She reports she has had a few events where she falls asleep when she is eating sandwich, but she was not sleepy when she is driving. He was snores loud since Her [place] sleepiness scale on 12/30/24: 03/19 Previous evaluation: None In 1996, she developed left-sided weakness, she was seen in the local hospital and she was said to have stroke, CT brain scan showed chronic right cerebellum stroke She has been on Eliquis after she received arteriall standing to the left lower extremity Urinalysis, 12/29/2024: WBC: 1, urine leukocyte esterase: Negative UDS, 12/29/2024: Negative CBC, 12/30/2024: HGB: 10.9 BUN/CR, 12/28/2024: 24/1.22 12/29/2024: 20/1.03 HGB A1c, 10/14/2024: 6.9 TG/HDL/LDL/HDL, 10/14/2024: 71/1/8/62/54 Vitamin B12, 12/28/2024: 822 TSH, 12/28/2024: 3.13 CT head, 12/28/2024: 1. No CT evidence of acute intracranial abnormality. 2. Moderate right posterior scalp hematoma. 3. Nonacute findings as described above (Encephalomalacia in the right cerebellar hemisphere) Past Medical History Hypertension, diabetes, stroke, depression, Past Surgical History Hysterectomy, partial lung resection for recurrent infection, artery stenting to the left leg Family History: Unknown Family History Hypertension, diabetes Social History She was a tobacco smoker, but no history of alcohol or recreational substance abuse Allergies: Coded Allergies: NO KNOWN ALLERGIES (Unverified , 10/13/24) Home Meds Active Scripts Clopidogrel Bisulfate (Plavix) 75 Mg Tab, 75 MG PO DAILY for 30 Days, #30 TAB 3 Refills Prov:KRYSTINA BALL MD 08/05/24 Acetaminophen (Tylenol 8 Hour Arthritis) 650 Mg Tab, 650 MG PO TID, #30 TAB Prov:EMORY GALLAGHER 01/19/22 Reported Medications Venlafaxine Hcl (Venlafaxine Hcl Er) 150 Mg Tab, 1 TAB PO DAILY, #30 TAB 1 Refill 12/28/24 Apixaban Base (ELIQUIS) 5 Mg Tab, 5 MG PO BID for PVD, TAB 10/13/24 Clobetasol Propionate (Clobetasol Propionate) 0.05 % Cre, 1 APPLIC TOP BID for AFFECTED AREAS, #15 GRAMS 07/29/24 Ketoconazole (Ketoconazole) 2 % Cre, 1 APPLIC TOP DAILY for RASH, #15 GRAMS 07/29/24 Calcipotriene (CALCIPOTRIENE) 0.005 % Cre, 0.005 % EX BID for PSORIASIS, CRE 07/29/24 Atorvastatin Calcium (ATORVASTATIN CALCIUM) 10 Mg Tab, 1 TAB PO DAILY for HIGH CHOLESTEROL, #30 TAB 5 Refills 07/29/24 Gabapentin (Gabapentin) 300 Mg Cap, 300 MG PO DAILY for NEUROPATHY, MG 07/29/24 Empagliflozin (Jardiance) 25 Mg Tab, 25 MG PO DAILY for DIABETES, TAB 07/29/24 Venlafaxine HCl (Venlafaxine Hydrochloride) 75 Mg Tab, 225 MG PO DAILY for DEPRESSION, TAB 03/06/20 Metoprolol Tartrate (LOPRESSOR TABLET) 50 Mg Tb, 1 TAB PO DAILY for HTN, #60 TAB 5 Refills 03/06/20 Losartan Potassium (Losartan Potassium) 100 Mg Tab, 1 TAB PO DAILY for HTN, #30 TAB 5 Refills 03/06/20 Chlorthalidone (Chlorthalidone) 25 Mg Tab, 25 MG PO DAILY for HTN/EDEMA, TAB 03/06/20 Metformin Hydrochloride (Metformin Hcl) 500 Mg Tab, 1000 MG PO IBID for DIABETES for 30 Days, MG 03/06/20 Citalopram Hydrobromide (Citalopram Hydrobromide) 40 Mg Tab, 40 MG PO DAILY for 30 Days, MG 03/06/20 Review of Systems As above, the other systems are negative Vital Signs Vital Signs Date Time Temp Pulse Resp B/P (MAP) Pulse Ox O2 Delivery O2 Flow Rate FiO2 12/30/24 21:00 97.6 97 17 116/83 (94) 92 97.6 12/30/24 20:00 Room Air* 0 21 Physical Exam GENERAL EXAM: General: the patient is well developed and nourished. No acute distress. HEENT: Normocephalic, neck is supple, no carotid bruits. No mass. The throat is Mallampati grade three RESPIRATORY: Normal respiratory effort with symmetrical lung expansion. Lungs clear to auscultation. CARDIOVASCULAR: Regular rate and rhythm with no murmurs. S1, S2. ABDOMEN: Soft, nontender, normal bowel sound MUSCULOSKELETAL EXAM: Tenderness in the cervical spine, mild tenderness in lumbar spine NEUROLOGICAL: MENTAL STATUS: Awake and alert. Oriented to person, place, time and general circumstances. Able to give personal history. SPEECH, LANGUAGE, HIGHER CORTICAL FUNCTION: no aphasia or dysathria. CRANIAL NERVES: #2: Intact visual miranda to confrontation. The optic discs were sharp. #3,4,6: Pupils are equal, round and reactive. EOMs full and conjugate. No nystagmus. #5: Facial sensation intact in all three divisions bilaterally. Mandibular strength intact. #7: Facial muscles symmetrical and strength intact. #8: Hearing grossly normal to voice. #9,10: Uvula and soft palate rise in the midline. Swallow and voice are normal. #11: Trapezius and sternomastoid strength intact bilaterally. #12: Tongue midline. No fasciculations or atrophy. SENSATION: Sensation to touch and pinprick is normal. MOTOR: Normal tone in the upper and lower extremity. Normal muscle bulk. No fasciculations. No abnormal movements or posturing. Muscle strength of the major groups in the upper extremities is 5/5. Muscle strength of the major groups in the lower extremities is 5/5. REFLEXES: Deep tendon reflexes are symmetrically increased in the arms and the legs. No pathological reflexes. CEREBELLAR/COORDINATION: Finger to nose is normal bilaterally. GAIT/STATION: deferred. Labs/Diagnostic Data Labs Test 12/30/24 16:47 12/30/24 06:21 12/29/24 02:10 12/28/24 15:02 Range/Units POC Glucose 130 H 70-106 mg/dl White Blood Count 8.5 4.4-10.8 10^3/uL Red Blood Count 3.77 L 4.0-5.20 10^6/uL Hemoglobin 10.9 L 12.2-16.2 g/dL Hematocrit 33.0 L 36.0-46.0 % Mean Corpuscular Volume 87.5 80.0-100.0 fL Mean Corpuscular Hemoglobin 28.9 28.0-32.0 pg Mean Corpuscular Hemoglobin Concent 33.1 32.0-36.0 g/dL Red Cell Distribution Width 13.6 11.8-14.3 % Platelet Count 296 140-450 10^3/uL Mean Platelet Volume 7.5 6.9-10.8 fL Neutrophils (%) (Auto) 60.5 37.0-80.0 % Lymphocytes (%) (Auto) 28.4 10.0-50.0 % Monocytes (%) (Auto) 9.3 0.0-12.0 % Eosinophils (%) (Auto) 1.4 0.0-7.0 % Basophils (%) (Auto) 0.4 0.0-2.0 % Neutrophils # (Auto) 5.1 1.6-8.6 10 ^3/uL Lymphocytes # (Auto) 2.4 0.4-5.4 10 ^3/uL Monocytes # (Auto) 0.8 0-1.3 10 ^3/uL Eosinophils # (Auto) 0.1 0-0.8 10 ^3/uL Basophils # (Auto) 0 0-0.2 10 ^3/uL Nucleated Red Blood Cells 0.1 % Sodium Level 138 136-145 mmol/L Potassium Level 4.1 3.5-5.1 mmol/L Chloride Level 101 98-107 mmol/L Carbon Dioxide Level 26 20-31 mmol/L Anion Gap 11 5-15 Blood Urea Nitrogen 16 9-23 mg/dL Creatinine 1.02 0.550-1.02 mg/dL Glomerular Filtration Rate Calc 59 >90 mL/min BUN/Creatinine Ratio 15.7 10.0-20.0 Serum Glucose 132 H 74-106 mg/dL Calcium Level 10.4 8.7-10.4 mg/dL Total Bilirubin 0.7 0.2-1.0 mg/dL Aspartate Amino Transferase (AST) 17 13-40 U/L Alanine Aminotransferase (ALT) 10 7-40 U/L Alkaline Phosphatase 96 46-116 U/L Creatine Kinase 69 34-145 U/L Total Protein 7.0 5.7-8.2 g/dL Albumin 4.1 3.2-4.8 g/dL Urine Color Light-yellow Yellow Urine Clarity Clear Clear Urine pH 7.0 5.0-9.0 Urine Specific [place] 1.013 1.001-1.035 Urine Protein Negative Negative Urine Ketones Negative Negative Urine Blood Negative Negative /uL Urine Nitrite Negative Negative Urine Bilirubin Negative Negative Urine Urobilinogen Normal Negative mg/dL Urine Leukocyte Esterase Negative Negative /uL Urine RBC <1 0 - 4 /hpf Urine Microscopic WBC < 1 0-5 /HPF Urine Squamous Epithelial Cells Few <5 /hpf Urine Bacteria None seen None Seen /hpf Urine Yeast (Budding) Occasional None Seen /hpf Urine Glucose 4+ H Normal mg/dL Urine Opiates Screen Neg NEGATIVE Urine Fentanyl Screen Neg NEGATIVE Urine Barbiturates Screen Neg NEGATIVE Urine Phencyclidine Screen Neg NEGATIVE Urine Amphetamines Screen Neg NEGATIVE Urine Benzodiazepines Screen Neg NEGATIVE Urine Cocaine Screen Neg NEGATIVE Urine Cannabinoids Screen Neg NEGATIVE Test 12/28/24 13:02 Range/Units Vitamin B12 Level 822 211-911 pg/mL Thyroid Stimulating Hormone (TSH) 3.13 0.55-4.78 uIU/mL Assessment Recurrent falls with preceding visual hallucination ? Partial simple seizure ? Cataplexy, less likely Muscle stiffness in the neck, shoulders, and chest, etiology unclear Hypersomnia Sleep-related breathing disorder to rule out sleep apnea Hyperreflexia to rule out C-spine myelopathy Plan/Recommendation Monitoring Supportive treatment Telemetry EEG MRI brain scan MRI C-spine APAP trial in the hospital Further address her sleep-related breathing disorder as outpatient Hypersomnia precautions discussed More recommendation per clinical course This is a complicated evaluation, time spent is more than 1 hour Plan discussed with: Patient, Other BAKARI COLLINS MD December 30, 2024 21:27
[2024-12-30] MEDS ORDERED: LORazepam 2MG/ML-1ML VIAL IV PRN (22:30)
[2024-12-31] VITALS (8 sets, daily range): BP systolic 74–139; BP diastolic 51–90; PULSE 99–138; RESP 15–19; TEMP 97.4–98.2; O2SAT 94–98
[2024-12-31] MEDS ORDERED: SODIUM CHLORIDE 0.9% 1,850 ML IV ONE (08:00)
[2024-12-31 08:09] LABS: Basophils # (auto) 0 10 ^3/uL (0-0.2); Basophils % (auto) 0.3 % (0.0-2.0); Eosinophils # (auto) 0.1 10 ^3/uL (0-0.8); Eosinophils % (auto) 0.6 % (0.0-7.0); Hematocrit 34.6 % (36.0-46.0); Hemoglobin 11.2 g/dL (12.2-16.2); Lymphocytes # (auto) 1.8 10 ^3/uL (0.4-5.4); Lymphocytes % (auto) 16.3 % (10.0-50.0); Mean Corpuscular Hemoglobin 28.6 pg (28.0-32.0); Mean Corpuscular Hgb Conc. 32.4 g/dL (32.0-36.0); Mean Corpuscular Volume 88.4 fL (80.0-100.0); Monocytes # (auto) 0.6 10 ^3/uL (0-1.3); Monocytes % (auto) 5.4 % (0.0-12.0); Neutrophils # (auto) 8.6 10 ^3/uL (1.6-8.6); Neutrophils % (auto) 77.4 % (37.0-80.0); Platelet Count (auto) 346 10^3/uL (140-450); Red Blood Cells 3.92 10^6/uL (4.0-5.20); Red Cell Distribution Width 13.9 % (11.8-14.3); White Blood Cell 11.1 10^3/uL (4.4-10.8)
[2024-12-31] MEDS: LACTATED RINGER'S 1,850 ML IV ONE (09:56)
--- NOTE | 2024-12-31 12:51 | DVH ---
PROCEDURE: MRI BRAIN HEAD WO CONTRAST Indication: fall, partial seizure COMPARISON: 12/28/2024. TECHNIQUE: Multiplanar multisequence images of the brain are obtained. FINDINGS: There is no abnormal diffusion restriction. There are moderate periventricular and subcortical white matter T2 and FLAIR hyperintense changes. Right cerebellar encephalomalacia. There is no intracrania l hemorrhage. No extra-axial fluid collection, mass effect or midline shift. The ventricles are midli ne and normal in size. The cisterns are patent. Normal intracranial flow voids are preserved. No abno rmal susceptibility signal. The sinuses and mastoids are well pneumatized. The visualized orbits are unremarkable. Severe degenerative changes at the craniocervical junction/atlanto axial articulation. Right parietal scalp hematoma. IMPRESSION: 1. No acute cerebrovascular ischemia. 2. Moderate chronic microvascular ischemic changes.Right cerebellar encephalomalacia.
--- NOTE | 2024-12-31 13:09 | DVH ---
PROCEDURE: MRI CERVICAL WO CONTRAST INDICATION: C-spine myelopathy EXAM DATE: 12/31/2024 12:11 PM COMPARISON: CERVICAL WITHOUT CONTRAST on DOS: 01/19/22 TECHNIQUE: MRI cervical spine without intravenous contrast. FINDINGS: The cervical alignment is intact. There are degenerative endplate changes with anterior osteophytes throughout the cervical spine. There is bulky pannus around the dens narrowing the central canal to 4 mm with impression on the cervical cord. There is associated abnormal cord signal consistent with myelopathy. There is abnormal signal in the andrea and medulla oblongata likely related to chronic jovan rovascular ischemic disease. An old right cerebellar infarct is noted. There is no prevertebral soft tissue swelling. The visualized paraspinal soft tissues are otherwise unremarkable. The following axial levels are detailed below: C2-C3: Moderate posterior disc osteophyte complex complicated by facet arthropathy associated with moderate to severe left neural foraminal stenosis. Central canal measures 7 mm. C3-C4: Moderate posterior disc osteophyte complex complicated by facet arthropathy associated with moderate to severe left neural foraminal stenosis. Central canal measures 7 mm. C4-C5: Mild posterior disc osteophyte complex complicated by facet arthropathy associated with mild to moderate bilateral neural foraminal stenosis. Central canal measures 8 mm. C5-C6: Moderate posterior disc osteophyte complex complicated by facet arthropathy associated with moderate to severe bilateral neural foraminal stenosis left greater than right. Central canal measure s 9 mm. C6-C7: Unremarkable. C7-T1: Unremarkable. IMPRESSION: 1. Multilevel advanced degenerative disease. Bulky pannus around the dens results in severe central canal stenosis with impression on the cervical cord. Abnormal cord signal at this level consistent wi th myelomalacia. Moderate to severe central canal stenosis C2-3 through C4-5. Neural foraminal steno sis as above. 2. Old right cerebellar infarct. Likely chronic microvascular ischemic disease in the andrea and medull a oblongata. HS:Y
--- NOTE | 2024-12-31 18:36 | DVHPN2 ---
Subjective Update 12/31 12/29 -today patient worked with PT and froze up again. Almost like cataplexy, where she was able to speak but muscles do not move. We will keep an eye on CKD and have follow up with neuro and telepsych. Otherwise she was swallowing okay will advance diet to regular diabetic. Keep an eye on sugars with a.cGisela HS SSI. Follow up with the recommendations from specialties tomorrow. Continue PT meanwhile. We will hold off on considering muscle relaxants until neurology eval. 12/30-patient ambulating with PT better today,. No episodes of stiffening/freezing. Psych consult today. Holding off SSRI. Neurology consult pending. We will continue PT. Follow up on CK levels. 12/31 MRI brain with some chronic findings possible old right cerebellar infarct with encephalomalacia. Cervical MRI with central spinal stenosis which could be possibly causing these symptoms. Neurology to follow up. Patient was doing well orthostatic today, EKG with some PVCs. Continue tele, follow up with Neurology. High-risk for bleeds given on Plavix/Xarelto for PAD and having falls. Reviewed: H&P Changes from previous H/P or p: No Changes General: Per HPI Objective Vitals Vital Signs Date Time Temp Pulse Resp B/P (MAP) Pulse Ox O2 Delivery O2 Flow Rate FiO2 12/31/24 17:00 97.9 115 15 113/77 (89) 97 97.9 12/31/24 08:00 Room Air* 0 21 Intake/Output Intake and Output 12/31/24 07:00 Intake Total 1625 ml Output Total 1 ml Balance 1624 ml Intake Oral 1125 ml IV Total 500 ml Output Stool Total 1 ml # Voids 7 Exam GEN: Healthy appearing, well-developed, NAD. HEENT: NC/AT; MMM. CV: RRR, no m/r/g. LUNGS: CTAB, no w/r/c. ABD: Soft, NT/ND, NBS, no masses or organomegaly. EXT: skin Warm, well perfused. no rashes. No clubbing, cyanosis, or edema. NEURO: Ambulating with no limitations. No focal deficits. Unsteady gait, Romberg positive. Cranial nerves 2-12 intact. Motor and sensation intact extremities X 4 Medications Current Medications Medications Dose Ordered Sig/Miller Route Start Time Stop Time Status Last Admin Dose Admin Acetaminophen/ Hydrocodone Bitart 1 tab Q4HP PRN PO 12/28/24 14:00 12/30/24 23:09 1 TAB Ondansetron HCl 4 mg Q4HP PRN IV 12/28/24 14:00 Acetaminophen 650 mg Q6HP PRN PO 12/28/24 14:00 Diagnostic Test (Pha) 1 strip ACHS 12/28/24 17:00 12/31/24 11:30 1 STRIP Insulin Human Regular ACHS SC 12/28/24 17:00 12/31/24 13:23 2 UNITS Dextrose 50 ml UD PRN IV 12/28/24 14:00 Polyethylene Glycol 17 gm BID PO 12/28/24 22:00 12/31/24 09:57 17 GM Docusate Sodium 100 mg BID PO 12/28/24 22:00 12/31/24 09:56 100 MG Pantoprazole Sodium 40 mg DAILY IV 12/29/24 10:00 12/31/24 09:55 40 MG Apixaban 5 mg BID PO 12/28/24 22:00 12/31/24 09:56 5 MG Chlorthalidone 25 mg DAILY PO 12/29/24 10:00 12/30/24 09:07 25 MG Clopidogrel Bisulfate 75 mg DAILY PO 12/29/24 10:00 12/31/24 09:56 75 MG Gabapentin 300 mg DAILY PO 12/29/24 10:00 12/31/24 09:57 300 MG Losartan Potassium 100 mg DAILY PO 12/29/24 10:00 12/30/24 09:07 100 MG Patient Own Medication 225 mg DAILY PO 12/29/24 10:00 Lorazepam 1 mg ONCE PRN IV 12/30/24 22:30 Laboratory Results Laboratory Tests 12/30/24 06:21 12/31/24 06:48 Urinalysis Test 12/29/24 02:10 Urine Color Light-yellow (Yellow) Urine Clarity Clear (Clear) Urine pH 7.0 (5.0-9.0) Urine Specific [place] 1.013 (1.001-1.035) Urine Protein Negative (Negative) Urine Ketones Negative (Negative) Urine Blood Negative /uL (Negative) Urine Nitrite Negative (Negative) Urine Bilirubin Negative (Negative) Urine Urobilinogen Normal mg/dL (Negative) Urine Leukocyte Esterase Negative /uL (Negative) Urine RBC <1 /hpf (0 - 4) Urine Microscopic WBC < 1 /HPF (0-5) Urine Squamous Epithelial Cells Few /hpf (<5) Urine Bacteria None seen /hpf (None Seen) Urine Yeast (Budding) Occasional /hpf (None Urine Glucose 4+ mg/dL (Normal) H Labs and/or images reviewed: Labs reviewed by me, Image(s) reviewed by me Assessment/Plan Assessment/Plan Update 12/31 MRI brain with some chronic findings possible old right cerebellar infarct with encephalomalacia. Cervical MRI with central spinal stenosis which could be possibly causing these symptoms. Neurology to follow up. Patient was doing well orthostatic today, EKG with some PVCs. Continue tele, follow up with Neurology. High-risk for bleeds given on Plavix/Xarelto for PAD and having falls. 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 For history of PE - constipation chronic with decreased p.o. intake/p.o. intolerance History CVA History PID, left leg stent History depression, Diabetes Hypertension ? History PE - continue Eliquis, hospitalist to initiate risk benefit discussion given patient is having falls and on anticoagulation, high-risk for intracranial bleed -orthostatics test Continue telemetry PT eval Neurology consult rule out reversible organic causes of aura and cataplexy related to falls - telepsych eval for psychiatric nature of falls - hypertension,-continue chlorthalidone, continue losartan, hold Lopressor (no history of AFib) -fall risk, bedrest, bed alarm - start bowel regimen for constipation - hold diabetes p.o. medications start sliding scale insulin a.c. HS mild - on multiple SSRI/SNRI-we will hold citalopram and continue venlafaxine equivalent. - IV resuscitation fluid hydration - lab check B12 tsh b6,? consider Lead levels, consider VDRL Continue other home medications. Continue Plavix, continue gabapentin Diet diabetic DVT prophylaxis-Eliquis home med GI prophylaxis-Protonix Telemetry Full code Plan discussed with: Patient My Orders Orders - CARLIN KWON MD Procedure Category Date Status Time Electrocardigram EKG 12/31/24 Logged 13:31 Orthostatic Vital ORDERS 12/31/24 Transmitted Signs 13:31 Date of Service: December 31, 2024 Billing Provider: CARLIN KWON MD Common Visit Codes: [id number] INP/OBS CARE(HIGH) CARLIN KWON MD December 31, 2024 18:36
--- NOTE | 2024-12-31 23:24 | DVHPN2 ---
Progress Note - Dictate Date Seen: December 31, 2024 Medical Necessity Reason Pt with a Central, PICC or Fol: No Subjective Ms. Marcus is a 69 years old right-handed female with a history of hypertension, diabetes, chronic stroke, depression, she was admitted to the [facility] on 12/28/2024 with a chief complaint of general weakness, falls, but the patient also has other complaints I have seen and examined the patient, I have talked to her nurse and Dr. Sandra Moncada. MRI positive for high level cervical stenosis with evidence of myelopathy. I recommend her C-spine myelopathy be handled in a [facility] Urinalysis, 12/29/2024: WBC: 1, urine leukocyte esterase: Negative UDS, 12/29/2024: Negative CBC, 12/30/2024: HGB: 10.9 BUN/CR, 12/28/2024: 24/1.22 12/29/2024: 20/1.03 HGB A1c, 10/14/2024: 6.9 TG/HDL/LDL/HDL, 10/14/2024: 71/1/8/62/54 Vitamin B12, 12/28/2024: 822 TSH, 12/28/2024: 3.13 CT head, 12/28/2024: 1. No CT evidence of acute intracranial abnormality. 2. Moderate right posterior scalp hematoma. 3. Nonacute findings as described above (Encephalomalacia in the right cerebellar hemisphere) MRI head, 12/31/2024: 1. No acute cerebrovascular ischemia. 2. Moderate chronic microvascular ischemic changes.Right cerebellar encephalomalacia MRI C-spine, 12/31/2024: 1. Multilevel advanced degenerative disease. Bulky pannus around the dens results in severe central canal stenosis with impression on the cervical cord. Abnormal cord signal at this level consistent with myelomalacia. Moderate to severe central canal stenosis C2-3 through C4-5. Neural foraminal stenosis as above. 2. Old right cerebellar infarct. Likely chronic microvascular ischemic disease in the andrea and medulla oblongata vital signs Vital Sign Date Time Temp Pulse Resp B/P (MAP) Pulse Ox O2 Delivery O2 Flow Rate FiO2 12/31/24 17:05 135 139/90 (106) 12/31/24 17:00 97.9 15 97 97.9 12/31/24 08:00 Room Air* 0 21 Total Intake and Output 12/30/24 12/30/24 12/31/24 15:00 23:00 07:00 Intake Total 500 ml 750 ml 375 ml Output Total 1 ml Balance 500 ml 749 ml 375 ml medications Current Medications Medications Dose Ordered Sig/Miller Route Start Time Stop Time Status Last Admin Dose Admin Acetaminophen/ Hydrocodone Bitart 1 tab Q4HP PRN PO 12/28/24 14:00 12/31/24 22:33 1 TAB Ondansetron HCl 4 mg Q4HP PRN IV 12/28/24 14:00 Acetaminophen 650 mg Q6HP PRN PO 12/28/24 14:00 Diagnostic Test (Pha) 1 strip ACHS 12/28/24 17:00 12/31/24 22:04 1 STRIP Insulin Human Regular ACHS SC 12/28/24 17:00 12/31/24 22:32 4 UNITS Dextrose 50 ml UD PRN IV 12/28/24 14:00 Polyethylene Glycol 17 gm BID PO 12/28/24 22:00 12/31/24 22:04 17 GM Docusate Sodium 100 mg BID PO 12/28/24 22:00 12/31/24 22:04 100 MG Pantoprazole Sodium 40 mg DAILY IV 12/29/24 10:00 12/31/24 09:55 40 MG Apixaban 5 mg BID PO 12/28/24 22:00 12/31/24 22:04 5 MG Chlorthalidone 25 mg DAILY PO 12/29/24 10:00 12/30/24 09:07 25 MG Clopidogrel Bisulfate 75 mg DAILY PO 12/29/24 10:00 12/31/24 09:56 75 MG Gabapentin 300 mg DAILY PO 12/29/24 10:00 12/31/24 09:57 300 MG Losartan Potassium 100 mg DAILY PO 12/29/24 10:00 12/30/24 09:07 100 MG Patient Own Medication 225 mg DAILY PO 12/29/24 10:00 Lorazepam 1 mg ONCE PRN IV 12/30/24 22:30 objective General: the patient is well developed and nourished. No acute distress. MUSCULOSKELETAL EXAM: Tenderness in the cervical spine, mild tenderness in lumbar spine MENTAL STATUS: Awake and alert. Oriented to person, place, time and general circumstances. Able to give personal history. SPEECH, LANGUAGE, HIGHER CORTICAL FUNCTION: no aphasia or dysathria. CRANIAL NERVES: Pupils are equal, round and reactive. EOMs full and conjugate. No nystagmus. Facial sensation intact in all three divisions bilaterally. Mandibular strength intact. Facial muscles symmetrical and strength intact. SENSATION: Sensation to touch and pinprick is normal. MOTOR: Normal tone in the upper and lower extremity. Normal muscle bulk. No fasciculations. No abnormal movements or posturing. Muscle strength of the major groups in the upper extremities is 5/5. Muscle strength of the major groups in the lower extremities is 5/5. REFLEXES: Deep tendon reflexes are symmetrically increased in the arms and the legs. No pathological reflexes. CEREBELLAR/COORDINATION: Finger to nose is normal bilaterally. GAIT/STATION: deferred laboratory and microbiology Laboratory Tests 12/31/24 06:48 12/30/24 06:21 Test 12/30/24 06:21 Range/Units Serum Glucose 132 H 74-106 mg/dL Problem List Recurrent falls with preceding visual hallucination ? Partial simple seizure ? 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 Muscle stiffness in the neck, shoulders, and chest, etiology unclear Hypersomnia Sleep-related breathing disorder to rule out sleep apnea Hyperreflexia High-level C-spine myelopathy Assessment/Plan Monitoring Supportive treatment Telemetry EEG APAP trial in the hospital Further address her sleep-related breathing disorder as outpatient Hypersomnia precautions discussed Transferred to higher level care Re: 1, Higher level C-spine substances with evidence of myelopathy, 2, Frequent falls Further address her C-spine stenosis as outpatient if the patient was not accepted More recommendation per clinical course This medical document was created using an electronic medical record system with [employer] dictation system. Although this document has been carefully reviewed, there may still be some phonetic and typographical errors. These areas are purely typographical due to imperfections of the software programs, and do not reflect any compromise in the patient's medical care. Prognosis Poor Plan discussed with: Other Total Time (mins): 35 BAKARI COLLINS MD December 31, 2024 23:23
[2025-01-01] VITALS (8 sets, daily range): BP systolic 60–184; BP diastolic 46–99; PULSE 62–126; RESP 17–20; TEMP 97.6–98.4; O2SAT 92–98
--- NOTE | 2025-01-01 07:32 | ECG ---
[facility] Test Date: 2024-12-31 Test Time: 18:19:56 Pat Name: DESIREE MADDEN Department: Room: 0293T B Gender: F [employer] Worker: ne : 1955 Requested By: CARLIN GRAVES Order Number: [id number] Reading MD: Giles Jo Measurements Intervals [place] Rate: 98 P: 65 MN: 172 QRS: 31 QRSD: 80 T: 56 QT: 356 QTc: 455 Interpretive Statements Sinus tachycardia Multiple ventricular premature complexes Left atrial enlargement Electronically Signed On 01-01-2025 20:09:04 PDT by Giles Jo Please click the below link to view image of tracing.
--- NOTE | 2025-01-01 17:15 | DVHPN2 ---
Subjective Update 01/01 12/29 -today patient worked with PT and froze up again. Almost like cataplexy, where she was able to speak but muscles do not move. We will keep an eye on CKD and have follow up with neuro and telepsych. Otherwise she was swallowing okay will advance diet to regular diabetic. Keep an eye on sugars with a.cGisela HS SSI. Follow up with the recommendations from specialties tomorrow. Continue PT meanwhile. We will hold off on considering muscle relaxants until neurology eval. 12/30-patient ambulating with PT better today,. No episodes of stiffening/freezing. Psych consult today. Holding off SSRI. Neurology consult pending. We will continue PT. Follow up on CK levels. 12/31 MRI brain with some chronic findings possible old right cerebellar infarct with encephalomalacia. Cervical MRI with central spinal stenosis which could be possibly causing these symptoms. Neurology to follow up. Patient was doing well orthostatic today, EKG with some PVCs. Continue tele, follow up with Neurology. High-risk for bleeds given on Plavix/Xarelto for PAD and having falls. 01/01 neuro has reviewed the case and recommend transfer given the MRI findings showing severe central canal stenosis on cervical cord and at same level findings of myelomalacia. Moderate to severe central canal stenosis C2-3 and through see 4-5. Given these results and symptomatic finding of worsening frequency of falls, patient needs evaluation and possible transfer to Neurosurgery [facility]. Patient does ask that the accepting facility be able to accommodate patient's as he was blind and she would like to have him available during this hospitalization episode. Reviewed: H&P Changes from previous H/P or p: No Changes General: Per HPI Objective Vitals Vital Signs Date Time Temp Pulse Resp B/P (MAP) Pulse Ox O2 Delivery O2 Flow Rate FiO2 01/01/25 16:51 98.1 108 17 165/93 (117) 94 98.1 116 148/90 (109) 126 124/85 (98) 01/01/25 08:00 Room Air* 0 21 Intake/Output Intake and Output 01/01/25 07:00 Intake Total 1580 ml Balance 1580 ml Intake Oral 1580 ml # Voids 7 Exam GEN: Healthy appearing, well-developed, NAD. HEENT: NC/AT; MMM. CV: RRR, no m/r/g. LUNGS: CTAB, no w/r/c. ABD: Soft, NT/ND, NBS, no masses or organomegaly. EXT: skin Warm, well perfused. no rashes. No clubbing, cyanosis, or edema. NEURO: Ambulating with no limitations. No focal deficits. Unsteady gait, Romberg positive. Cranial nerves 2-12 intact. Motor and sensation intact extremities X 4 Medications Current Medications Medications Dose Ordered Sig/Miller Route Start Time Stop Time Status Last Admin Dose Admin Acetaminophen/ Hydrocodone Bitart 1 tab Q4HP PRN PO 12/28/24 14:00 12/31/24 22:33 1 TAB Ondansetron HCl 4 mg Q4HP PRN IV 12/28/24 14:00 Acetaminophen 650 mg Q6HP PRN PO 12/28/24 14:00 Diagnostic Test (Pha) 1 strip ACHS 12/28/24 17:00 01/01/25 11:47 1 STRIP Insulin Human Regular ACHS SC 12/28/24 17:00 01/01/25 12:05 4 UNITS Dextrose 50 ml UD PRN IV 12/28/24 14:00 Polyethylene Glycol 17 gm BID PO 12/28/24 22:00 01/01/25 11:35 17 GM Docusate Sodium 100 mg BID PO 12/28/24 22:00 01/01/25 11:34 100 MG Pantoprazole Sodium 40 mg DAILY IV 12/29/24 10:00 01/01/25 11:44 40 MG Apixaban 5 mg BID PO 12/28/24 22:00 01/01/25 11:38 5 MG Chlorthalidone 25 mg DAILY PO 12/29/24 10:00 12/30/24 09:07 25 MG Clopidogrel Bisulfate 75 mg DAILY PO 12/29/24 10:00 01/01/25 11:38 75 MG Gabapentin 300 mg DAILY PO 12/29/24 10:00 01/01/25 11:41 300 MG Losartan Potassium 100 mg DAILY PO 12/29/24 10:00 01/01/25 11:40 100 MG Patient Own Medication 225 mg DAILY PO 12/29/24 10:00 Lorazepam 1 mg ONCE PRN IV 12/30/24 22:30 Laboratory Results Laboratory Tests 12/30/24 06:21 12/31/24 06:48 Urinalysis Test 12/29/24 02:10 Urine Color Light-yellow (Yellow) Urine Clarity Clear (Clear) Urine pH 7.0 (5.0-9.0) Urine Specific [place] 1.013 (1.001-1.035) Urine Protein Negative (Negative) Urine Ketones Negative (Negative) Urine Blood Negative /uL (Negative) Urine Nitrite Negative (Negative) Urine Bilirubin Negative (Negative) Urine Urobilinogen Normal mg/dL (Negative) Urine Leukocyte Esterase Negative /uL (Negative) Urine RBC <1 /hpf (0 - 4) Urine Microscopic WBC < 1 /HPF (0-5) Urine Squamous Epithelial Cells Few /hpf (<5) Urine Bacteria None seen /hpf (None Seen) Urine Yeast (Budding) Occasional /hpf (None Urine Glucose 4+ mg/dL (Normal) H Labs and/or images reviewed: Labs reviewed by me, Image(s) reviewed by me Assessment/Plan Assessment/Plan Update 01/01 neuro has reviewed the case and recommend transfer given the MRI findings showing severe central canal stenosis on cervical cord and at same level findings of myelomalacia. Moderate to severe central canal stenosis C2-3 and through see 4-5. Given these results and symptomatic finding of worsening frequency of falls, patient needs evaluation and possible transfer to Neurosurgery [facility]. Patient does ask that the accepting facility be able to accommodate patient's as he was blind and she would like to have him available during this hospitalization episode. 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 For history of PE - constipation chronic with decreased p.o. intake/p.o. intolerance History CVA History PID, left leg stent History depression, Diabetes Hypertension ? History PE - continue Eliquis, hospitalist to initiate risk benefit discussion given patient is having falls and on anticoagulation, high-risk for intracranial bleed -orthostatics test Continue telemetry PT eval Neurology consult rule out reversible organic causes of aura and cataplexy related to falls - telepsych eval for psychiatric nature of falls - hypertension,-continue chlorthalidone, continue losartan, hold Lopressor (no history of AFib) -fall risk, bedrest, bed alarm - start bowel regimen for constipation - hold diabetes p.o. medications start sliding scale insulin a.c. HS mild - on multiple SSRI/SNRI-we will hold citalopram and continue venlafaxine equivalent. - IV resuscitation fluid hydration - lab check B12 tsh b6,? consider Lead levels, consider VDRL Continue other home medications. Continue Plavix, continue gabapentin Diet diabetic DVT prophylaxis-Eliquis home med GI prophylaxis-Protonix Telemetry Full code Plan discussed with: Patient Date of Service: January 01, 2025 Billing Provider: CARLIN KWON MD Common Visit Codes: [id number] INP/OBS CARE(HIGH) CARLIN KWON MD January 01, 2025 17:15
--- NOTE | 2025-01-01 23:26 | DVHPN2 ---
Progress Note - Dictate Date Seen: January 01, 2025 Medical Necessity Reason Pt with a Central, PICC or Fol: No Subjective Ms. Marcus is a 69 years old right-handed female with a history of hypertension, diabetes, chronic stroke, depression, she was admitted to the [facility] on 12/28/2024 with a chief complaint of general weakness, falls, but the patient also has other complaints I have seen and examined the patient, I have talked to her nurse. The case was discussed with Dr. Sandra Moncada and our social service. The patient was alert and fully oriented at this time, but she has a lot of concerning, and questions to discuss with me. She prefer [facility] because she was in the hospital previously, and it was closer so easy for her blindness to visit. Urinalysis, 12/29/2024: WBC: 1, urine leukocyte esterase: Negative UDS, 12/29/2024: Negative CBC, 12/30/2024: HGB: 10.9 BUN/CR, 12/28/2024: 24/1.22 12/29/2024: 20/1.03 HGB A1c, 10/14/2024: 6.9 TG/HDL/LDL/HDL, 10/14/2024: 71/1/8/62/54 Vitamin B12, 12/28/2024: 822 TSH, 12/28/2024: 3.13 CT head, 12/28/2024: 1. No CT evidence of acute intracranial abnormality. 2. Moderate right posterior scalp hematoma. 3. Nonacute findings as described above (Encephalomalacia in the right cerebellar hemisphere) MRI head, 12/31/2024: 1. No acute cerebrovascular ischemia. 2. Moderate chronic microvascular ischemic changes.Right cerebellar encephalomalacia MRI C-spine, 12/31/2024: 1. Multilevel advanced degenerative disease. Bulky pannus around the dens results in severe central canal stenosis with impression on the cervical cord. Abnormal cord signal at this level consistent with myelomalacia. Moderate to severe central canal stenosis C2-3 through C4-5. Neural foraminal stenosis as above. 2. Old right cerebellar infarct. Likely chronic microvascular ischemic disease in the andrea and medulla oblongata vital signs Vital Sign Date Time Temp Pulse Resp B/P (MAP) Pulse Ox O2 Delivery O2 Flow Rate FiO2 5/8/25 20:00 109 Room Air* 0 21 01/01/25 16:51 98.1 17 165/93 (117) 94 98.1 148/90 (109) 124/85 (98) Total Intake and Output 12/31/24 12/31/24 01/01/25 14:59 22:59 06:59 Intake Total 230 ml 850 ml 500 ml Balance 230 ml 850 ml 500 ml medications Current Medications Medications Dose Ordered Sig/Miller Route Start Time Stop Time Status Last Admin Dose Admin Acetaminophen/ Hydrocodone Bitart 1 tab Q4HP PRN PO 12/28/24 14:00 01/01/25 21:33 1 TAB Ondansetron HCl 4 mg Q4HP PRN IV 12/28/24 14:00 Acetaminophen 650 mg Q6HP PRN PO 12/28/24 14:00 Diagnostic Test (Pha) 1 strip ACHS 12/28/24 17:00 01/01/25 21:23 1 STRIP Insulin Human Regular ACHS SC 12/28/24 17:00 01/01/25 21:34 2 UNITS Dextrose 50 ml UD PRN IV 12/28/24 14:00 Polyethylene Glycol 17 gm BID PO 12/28/24 22:00 01/01/25 21:23 17 GM Docusate Sodium 100 mg BID PO 12/28/24 22:00 01/01/25 21:22 100 MG Pantoprazole Sodium 40 mg DAILY IV 12/29/24 10:00 01/01/25 11:44 40 MG Apixaban 5 mg BID PO 12/28/24 22:00 01/01/25 21:22 5 MG Chlorthalidone 25 mg DAILY PO 12/29/24 10:00 12/30/24 09:07 25 MG Clopidogrel Bisulfate 75 mg DAILY PO 12/29/24 10:00 01/01/25 11:38 75 MG Gabapentin 300 mg DAILY PO 12/29/24 10:00 01/01/25 11:41 300 MG Losartan Potassium 100 mg DAILY PO 12/29/24 10:00 01/01/25 11:40 100 MG Patient Own Medication 225 mg DAILY PO 12/29/24 10:00 Lorazepam 1 mg ONCE PRN IV 12/30/24 22:30 objective General: the patient is well developed and nourished. No acute distress. MUSCULOSKELETAL EXAM: Tenderness in the cervical spine, mild tenderness in lumbar spine MENTAL STATUS: Awake and alert. Oriented to person, place, time and general circumstances. Able to give personal history. SPEECH, LANGUAGE, HIGHER CORTICAL FUNCTION: no aphasia or dysathria. CRANIAL NERVES: Pupils are equal, round and reactive. EOMs full and conjugate. No nystagmus. Facial sensation intact in all three divisions bilaterally. Mandibular strength intact. Facial muscles symmetrical and strength intact. SENSATION: Sensation to touch and pinprick is normal. MOTOR: Normal tone in the upper and lower extremity. Normal muscle bulk. No fasciculations. No abnormal movements or posturing. Muscle strength of the major groups in the extremities is 5/5. REFLEXES: Deep tendon reflexes are symmetrically increased in the arms and the legs. No pathological reflexes. CEREBELLAR/COORDINATION: Finger to nose is normal bilaterally. GAIT/STATION: deferred laboratory and microbiology Laboratory Tests 12/31/24 06:48 12/30/24 06:21 Test 12/30/24 06:21 Range/Units Serum Glucose 132 H 74-106 mg/dL Problem List Recurrent falls with preceding visual hallucination ? Partial simple seizure ? 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 Muscle stiffness in the neck, shoulders, and chest, etiology unclear Hypersomnia Sleep-related breathing disorder to rule out sleep apnea Hyperreflexia High-level C-spine myelopathy Assessment/Plan Monitoring Supportive treatment Telemetry EEG APAP in the hospital Further address her sleep-related breathing disorder as outpatient Hypersomnia precautions discussed Transferred to higher level care Re: 1, Higher level C-spine substances with evidence of myelopathy, 2, Frequent falls Further address her C-spine stenosis as outpatient if the patient was not accepted More recommendation per clinical course This medical document was created using an electronic medical record system with [employer] dictation system. Although this document has been carefully reviewed, there may still be some phonetic and typographical errors. These areas are purely typographical due to imperfections of the software programs, and do not reflect any compromise in the patient's medical care. Prognosis poor Plan discussed with: Patient, Other Total Time (mins): 35 BAKARI COLLINS MD January 01, 2025 23:26
[2025-01-02] VITALS (8 sets, daily range): BP systolic 103–163; BP diastolic 68–95; PULSE 97–134; RESP 17–18; TEMP 97.4–98.1; O2SAT 94–98
--- NOTE | 2025-01-02 00:30 | DVHEEG2 ---
Neurology EEG Procedural Note Procedural Note EXAM DATE: 12/31/2024 REFERRING DOCTOR: Dr. Collins TECHNIQUE: Eighteen channels of EEG, 2 channels of EOG, and 1 channel of EKG were recorded using the [employer] 10/20 system. CLINICAL DATA: The patient was referred for an EEG evaluation for the evidence of seizure disorder. MEDICATIONS: See the chart BACKGROUND ACTIVITY: While the patient was awake, the background activity consisted of well regulated 8-9 Hz rhythmic waveforms, symmetrically distributed over both posterior quadrants and was reactive to eye opening. ACTIVATION: Hyperventilation: Not done Photic Stimulation: Not done Sleep: Stage I IMPRESSION: This is a normal EEG. No focal, lateralized, or epileptiform fea tures are noted. If clinically indicated to rule out a seizure disorder, recommend repeat EEG with sleep deprivation. The EKG channel showed a regular heart rate of 102/min. [place] [address] BAKARI COLLINS MD January 02, 2025 00:30
[2025-01-02] MEDS: LACTATED RINGER'S 500 ML IV ONE (13:15)
--- NOTE | 2025-01-02 17:36 | DVHPN2 ---
Subjective Update 01/02 12/29 -today patient worked with PT and froze up again. Almost like cataplexy, where she was able to speak but muscles do not move. We will keep an eye on CKD and have follow up with neuro and telepsych. Otherwise she was swallowing okay will advance diet to regular diabetic. Keep an eye on sugars with a.c. HS SSI. Follow up with the recommendations from specialties tomorrow. Continue PT meanwhile. We will hold off on considering muscle relaxants until neurology eval. 12/30-patient ambulating with PT better today,. No episodes of stiffening/freezing. Psych consult today. Holding off SSRI. Neurology consult pending. We will continue PT. Follow up on CK levels. 12/31 MRI brain with some chronic findings possible old right cerebellar infarct with encephalomalacia. Cervical MRI with central spinal stenosis which could be possibly causing these symptoms. Neurology to follow up. Patient was doing well orthostatic today, EKG with some PVCs. Continue tele, follow up with Neurology. High-risk for bleeds given on Plavix/Xarelto for PAD and having falls. 01/01 neuro has reviewed the case and recommend transfer given the MRI findings showing severe central canal stenosis on cervical cord and at same level findings of myelomalacia. Moderate to severe central canal stenosis C2-3 and through see 4-5. Given these results and symptomatic finding of worsening frequency of falls, patient needs evaluation and possible transfer to Neurosurgery [facility]. Patient does ask that the accepting facility be able to accommodate patient's as he was blind and she would like to have him available during this hospitalization episode. 01/02 - patient was doing better. No more freezing episodes. No red flags with focal neurological deficits. Today she had chat with her over the phone and is open to going to other facilities if needed. Apparently [facility] is aware of patient's history and she has some history of canal stenosis,. Follow up with social science research assistant and case management,. Apparently patient was accepted by [facility] and pending insurance authorization. Reviewed: H&P Changes from previous H/P or p: No Changes General: Per HPI Objective Vitals Vital Signs Date Time Temp Pulse Resp B/P (MAP) Pulse Ox O2 Delivery O2 Flow Rate FiO2 01/02/25 13:00 97.5 114 18 112/73 (86) 94 97.5 01/02/25 08:00 Room Air* 0 21 Intake/Output Intake and Output 01/02/25 07:00 Intake Total 1600 ml Output Total 500 ml Balance 1100 ml Intake Oral 1600 ml Output Urine Total 500 ml # Voids 6 # Bowel Movements 2 Exam GEN: Healthy appearing, well-developed, NAD. HEENT: NC/AT; MMM. CV: RRR, no m/r/g. LUNGS: CTAB, no w/r/c. ABD: Soft, NT/ND, NBS, no masses or organomegaly. EXT: skin Warm, well perfused. no rashes. No clubbing, cyanosis, or edema. NEURO: Ambulating with no limitations. No focal deficits. Unsteady gait, Romberg positive. Cranial nerves 2-12 intact. Motor and sensation intact extremities X 4 Medications Current Medications Medications Dose Ordered Sig/Miller Route Start Time Stop Time Status Last Admin Dose Admin Acetaminophen/ Hydrocodone Bitart 1 tab Q4HP PRN PO 12/28/24 14:00 01/01/25 21:33 1 TAB Ondansetron HCl 4 mg Q4HP PRN IV 12/28/24 14:00 Acetaminophen 650 mg Q6HP PRN PO 12/28/24 14:00 Diagnostic Test (Pha) 1 strip ACHS 12/28/24 17:00 01/02/25 17:07 1 STRIP Insulin Human Regular ACHS SC 12/28/24 17:00 01/02/25 12:07 4 UNITS Dextrose 50 ml UD PRN IV 12/28/24 14:00 Polyethylene Glycol 17 gm BID PO 12/28/24 22:00 01/02/25 10:49 17 GM Docusate Sodium 100 mg BID PO 12/28/24 22:00 01/02/25 10:48 100 MG Pantoprazole Sodium 40 mg DAILY IV 12/29/24 10:00 01/02/25 10:47 40 MG Apixaban 5 mg BID PO 12/28/24 22:00 01/02/25 10:48 5 MG Chlorthalidone 25 mg DAILY PO 12/29/24 10:00 01/02/25 17:20 25 MG Clopidogrel Bisulfate 75 mg DAILY PO 12/29/24 10:00 01/02/25 10:47 75 MG Gabapentin 300 mg DAILY PO 12/29/24 10:00 5/9/25 10:48 300 MG Losartan Potassium 100 mg DAILY PO 12/29/24 10:00 01/02/25 10:48 100 MG Patient Own Medication 225 mg DAILY PO 12/29/24 10:00 Lorazepam 1 mg ONCE PRN IV 12/30/24 22:30 Laboratory Results Laboratory Tests 12/30/24 06:21 12/31/24 06:48 Urinalysis Test 12/29/24 02:10 Urine Color Light-yellow (Yellow) Urine Clarity Clear (Clear) Urine pH 7.0 (5.0-9.0) Urine Specific [place] 1.013 (1.001-1.035) Urine Protein Negative (Negative) Urine Ketones Negative (Negative) Urine Blood Negative /uL (Negative) Urine Nitrite Negative (Negative) Urine Bilirubin Negative (Negative) Urine Urobilinogen Normal mg/dL (Negative) Urine Leukocyte Esterase Negative /uL (Negative) Urine RBC <1 /hpf (0 - 4) Urine Microscopic WBC < 1 /HPF (0-5) Urine Squamous Epithelial Cells Few /hpf (<5) Urine Bacteria None seen /hpf (None Seen) Urine Yeast (Budding) Occasional /hpf (None Urine Glucose 4+ mg/dL (Normal) H Labs and/or images reviewed: Labs reviewed by me, Image(s) reviewed by me Assessment/Plan Assessment/Plan Update 01/02 - patient was doing better. No more freezing episodes. No red flags with focal neurological deficits. Today she had chat with her over the phone and is open to going to other facilities if needed. Apparently [facility] is aware of patient's history and she has some history of canal stenosis,. Follow up with social science research assistant and case management,. Apparently patient was accepted by [facility] and pending insurance authorization. 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 For history of PE - constipation chronic with decreased p.o. intake/p.o. intolerance History CVA History PID, left leg stent History depression, Diabetes Hypertension ? History PE - continue Eliquis, hospitalist to initiate risk benefit discussion given patient is having falls and on anticoagulation, high-risk for intracranial bleed -orthostatics test Continue telemetry PT eval Neurology consult rule out reversible organic causes of aura and cataplexy related to falls - telepsych eval for psychiatric nature of falls - hypertension,-continue chlorthalidone, continue losartan, hold Lopressor (no history of AFib) -fall risk, bedrest, bed alarm - start bowel regimen for constipation - hold diabetes p.o. medications start sliding scale insulin a.c. HS mild - on multiple SSRI/SNRI-we will hold citalopram and continue venlafaxine equivalent. - IV resuscitation fluid hydration - lab check B12 tsh b6,? consider Lead levels, consider VDRL Continue other home medications. Continue Plavix, continue gabapentin Diet diabetic DVT prophylaxis-Eliquis home med GI prophylaxis-Protonix Telemetry Full code Plan discussed with: Patient My Orders Orders - CARLIN KWON MD Procedure Category Date Status Time Vitamin B6 LAB 01/02/25 In Process 11:11 Date of Service: January 02, 2025 Billing Provider: CARLIN KWON MD Common Visit Codes: [id number] INP/OBS CARE(HIGH) CARLIN KWON MD January 02, 2025 17:36
[2025-01-03 00:41] VITALS: BP 146/86; PULSE 117
[2025-01-03 05:00] VITALS: BP 123/74; PULSE 110; RESP 18; TEMP 97.9; O2SAT 97
[2025-01-03 08:00] VITALS: PULSE 121
[2025-01-03 08:02] LABS: Alanine Aminotransferase 13 U/L (7-40); Alkaline Phosphatase 101 U/L (46-116); Anion Gap 11 (5-15); BUN/Creatinine Ratio 24.5 (10.0-20.0); Carbon Dioxide 27 mmol/L (20-31); Chloride 102 mmol/L (98-107); Potassium 3.9 mmol/L (3.5-5.1); Sodium 140 mmol/L (136-145); Total Protein 6.9 g/dL (5.7-8.2)
[2025-01-03 08:03] LABS: Aspartate Aminotransferase 19 U/L (13-40); Bilirubin, Total 0.6 mg/dL (0.2-1.0)
[2025-01-03 08:08] LABS: Blood Urea Nitrogen 25 mg/dL (9-23); Calcium 10.5 mg/dL (8.7-10.4); Glucose 154 mg/dL (74-106)
[2025-01-03 09:00] VITALS: BP 129/84; PULSE 113; RESP 18; TEMP 98; O2SAT 97
[2025-01-03 13:00] VITALS: BP 106/71; PULSE 99; RESP 20; TEMP 98.1; O2SAT 95
[2025-01-03 17:00] VITALS: BP 131/79; PULSE 94; RESP 18; TEMP 98.1; O2SAT 95
--- NOTE | 2025-01-03 18:00 | DVHDS2 ---
Discharge Summary Date of Admission December 28, 2024 at 13:54 Date of Discharge: January 03, 2025 Labs/Diagnostic Data: Laboratory Results Test 01/03/25 17:09 01/03/25 06:06 01/02/25 11:11 12/31/24 06:48 POC Glucose 195 mg/dl (70-106) Sodium Level 140 mmol/L (136-145) Potassium Level 3.9 mmol/L (3.5-5.1) Chloride Level 102 mmol/L (98-107) Carbon Dioxide Level 27 mmol/L (20-31) Anion Gap 11 (5-15) Blood Urea Nitrogen 25 mg/dL (9-23) Creatinine 1.02 mg/dL (0.550-1.02) Glomerular Filtration Rate Calc 59 mL/min (>90) BUN/Creatinine Ratio 24.5 (10.0-20.0) Serum Glucose 154 mg/dL (74-106) Calcium Level 10.5 mg/dL (8.7-10.4) Total Bilirubin 0.6 mg/dL (0.2-1.0) Aspartate Amino Transferase (AST) 19 U/L (13-40) Alanine Aminotransferase (ALT) 13 U/L (7-40) Alkaline Phosphatase 101 U/L (46-116) Total Protein 6.9 g/dL (5.7-8.2) Albumin 4.0 g/dL (3.2-4.8) White Blood Count 11.1 10^3/uL (4.4-10.8) Red Blood Count 3.92 10^6/uL (4.0-5.20) Hemoglobin 11.2 g/dL (12.2-16.2) Hematocrit 34.6 % (36.0-46.0) Mean Corpuscular Volume 88.4 fL (80.0-100.0) Mean Corpuscular Hemoglobin 28.6 pg (28.0-32.0) Mean Corpuscular Hemoglobin Concent 32.4 g/dL (32.0-36.0) Red Cell Distribution Width 13.9 % (11.8-14.3) Platelet Count 346 10^3/uL (140-450) Mean Platelet Volume 7.6 fL (6.9-10.8) Neutrophils (%) (Auto) 77.4 % (37.0-80.0) Lymphocytes (%) (Auto) 16.3 % (10.0-50.0) Monocytes (%) (Auto) 5.4 % (0.0-12.0) Eosinophils (%) (Auto) 0.6 % (0.0-7.0) Basophils (%) (Auto) 0.3 % (0.0-2.0) Neutrophils # (Auto) 8.6 10 ^3/uL (1.6-8.6) Lymphocytes # (Auto) 1.8 10 ^3/uL (0.4-5.4) Monocytes # (Auto) 0.6 10 ^3/uL (0-1.3) Eosinophils # (Auto) 0.1 10 ^3/uL (0-0.8) Basophils # (Auto) 0 10 ^3/uL (0-0.2) Nucleated Red Blood Cells 0.0 % Test 12/30/24 06:21 12/29/24 02:10 12/28/24 13:02 Creatine Kinase 69 U/L (34-145) Urine Color Light-yellow (Yellow) Urine Clarity Clear (Clear) Urine pH 7.0 (5.0-9.0) Urine Specific [place] 1.013 (1.001-1.035) Urine Protein Negative (Negative) Urine Ketones Negative (Negative) Urine Blood Negative /uL (Negative) Urine Nitrite Negative (Negative) Urine Bilirubin Negative (Negative) Urine Urobilinogen Normal mg/dL (Negative) Urine Leukocyte Esterase Negative /uL (Negative) Urine RBC <1 /hpf (0 - 4) Urine Microscopic WBC < 1 /HPF (0-5) Urine Squamous Epithelial Cells Few /hpf (<5) Urine Bacteria None seen /hpf (None Seen) Urine Yeast (Budding) Occasional /hpf (None Urine Glucose 4+ mg/dL (Normal) Urine Opiates Screen Neg (NEGATIVE) Urine Fentanyl Screen Neg (NEGATIVE) Urine Barbiturates Screen Neg (NEGATIVE) Urine Phencyclidine Screen Neg (NEGATIVE) Urine Amphetamines Screen Neg (NEGATIVE) Urine Benzodiazepines Screen Neg (NEGATIVE) Urine Cocaine Screen Neg (NEGATIVE) Urine Cannabinoids Screen Neg (NEGATIVE) Vitamin B12 Level 822 pg/mL (211-911) Thyroid Stimulating Hormone (TSH) 3.13 uIU/mL (0.55-4.78) Other Laboratory Tests 01/03/25 06:06 12/31/24 06:48 Brief Hx & Hospital Course: 12/29 -today patient worked with PT and froze up again. Almost like cataplexy, where she was able to speak but muscles do not move. We will keep an eye on CKD and have follow up with neuro and telepsych. Otherwise she was swallowing okay will advance diet to regular diabetic. Keep an eye on sugars with a.c. HS SSI. Follow up with the recommendations from specialties tomorrow. Continue PT meanwhile. We will hold off on considering muscle relaxants until neurology eval. 12/30-patient ambulating with PT better today,. No episodes of stiffening/freezing. Psych consult today. Holding off SSRI. Neurology consult pending. We will continue PT. Follow up on CK levels. 12/31 MRI brain with some chronic findings possible old right cerebellar infarct with encephalomalacia. Cervical MRI with central spinal stenosis which could be possibly causing these symptoms. Neurology to follow up. Patient was doing well orthostatic today, EKG with some PVCs. Continue tele, follow up with Neurology. High-risk for bleeds given on Plavix/Xarelto for PAD and having falls. 01/01 neuro has reviewed the case and recommend transfer given the MRI findings showing severe central canal stenosis on cervical cord and at same level findings of myelomalacia. Moderate to severe central canal stenosis C2-3 and through see 4-5. Given these results and symptomatic finding of worsening frequency of falls, patient needs evaluation and possible transfer to Neurosurgery [facility]. Patient does ask that the accepting facility be able to accommodate patient's as he was blind and she would like to have him available during this hospitalization episode. 01/02 - patient was doing better. No more freezing episodes. No red flags with focal neurological deficits. Today she had chat with her over the phone and is open to going to other facilities if needed. Apparently [facility] is aware of patient's history and she has some history of canal stenosis,. Follow up with social worker masters and case management,. Apparently patient was accepted by [facility] and pending insurance authorization. 01/03 patient continues to remain mobile, no red flags, no FND,. [facility] approved for transfer today. We will continue with discharge to [facility] for central canal stenosis evaluation by Neurosurgery. 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 For history of PE - constipation chronic with decreased p.o. intake/p.o. intolerance History CVA History PID, left leg stent History depression, Diabetes Hypertension ? History PE Discharge plan: -Continue transfer to [facility] to evaluate central canal stenosis -Continue medications as per MAR ( Continue Eliquis 5 mg b.i.d., chlorthalidone 25 mg daily, Plavix 75 mg daily, gabapentin 300 mg daily, pain control with [place] 5 q.4h p.r.n., losartan 100 mg daily, mild sliding scale insulin a.c. 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 For history of PE - constipation chronic with decreased p.o. intake/p.o. intolerance History CVA History PID, left leg stent History depression, Diabetes Hypertension ? History PE Discharge Disposition: Acute Care Facility Discharge Instruct/Medications Diet: Regular Activity: Light activity Discharge Statement: "Patient was advised to return to the ER or call 911 if any headaches, dizziness, shortness of breath, chest pain, abdominal pain, bleeding, fevers, or worsening of medical condition. Patient was counseled about treatment plan, medications, possible side effects, patientverbalized understanding. All questions were answered to the best of my ability. This discharge took greater then 30 minutes in planning, reviewing documentation, counseling the patient, and discussing with other team members." Date of Service: January 03, 2025 Billing Provider: CARLIN KWON MD Common Visit Codes: [id number] DISCH DAY >30min CARLIN KWON MD January 03, 2025 18:00
== END 2025-01-03 19:53 | disposition short-term general hospital (02) | DRG 91 ==
LOC: ER 11:28 → OVERFLOW 13:54 → TELE-WESTW 19:45
PROVIDERS: ADMIT Student in an Organized Health Care Education/Training Program; ATTEND Student in an Organized Health Care Education/Training Program
DX: G47.411 Narcolepsy with cataplexy (principal); N17.0 Acute kidney failure with tubular necrosis; G95.89 Other specified diseases of spinal cord; S09.8XXA Other specified injuries of head, initial encounter; M48.02 Spinal stenosis, cervical region; F32.A Depression, unspecified; I95.9 Hypotension, unspecified; K59.09 Other constipation; F17.200 Nicotine dependence, unspecified, uncomplicated; G47.10 Hypersomnia, unspecified; F41.9 Anxiety disorder, unspecified; G43.909 Migraine, unspecified, not intractable, without status migrainosus; I49.3 Ventricular premature depolarization; W18.39XA Other fall on same level, initial encounter; E11.22 Type 2 diabetes mellitus with diabetic chronic kidney disease; I12.9 Hypertensive chronic kidney disease with stage 1 through stage 4 chronic kidney disease, or unspecified chronic kidney disease; N18.9 Chronic kidney disease, unspecified; Z79.1 Long term (current) use of non-steroidal anti-inflammatories (NSAID); Z79.899 Other long term (current) drug therapy; Z79.84 Long term (current) use of oral hypoglycemic drugs; Z86.73 Personal history of transient ischemic attack (TIA), and cerebral infarction without residual deficits; Z90.711 Acquired absence of uterus with remaining cervical stump; Z86.711 Personal history of pulmonary embolism; Z91.81 History of falling; Z79.02 Long term (current) use of antithrombotics/antiplatelets; Z83.3 Family history of diabetes mellitus; Z82.49 Family history of ischemic heart disease and other diseases of the circulatory system; Y92.89 Other specified places as the place of occurrence of the external cause; Y99.8 Other external cause status
CPT/HCPCS: 36415; 70450; 70551; 72141; 80048; 80053; 80307; 81001; 82550; 82607; 82962; 84207; 84443; 85025; 93005; 95819; 96374; 97110; 97116; 97163; 97530; G0378; J1815; J2470

== ENCOUNTER 2025-02-10 10:09 | Outpatient (CLI) | payer MEDICAID ==
[~2025-02-10 10:09] MED LIST changes: +VENL150T34 PO
[2025-02-10 11:22] LABS: Creatinine, Urine 115.21 mg/dL (30.0-125.0)
[2025-02-10 11:25] LABS: Microalb/Creat Ratio, Urine < 3.0
[2025-02-10 11:26] LABS: Micro Albumin < 3.0 mg/L (<30.0)
[2025-02-12 13:09] LABS: Albumin 4.3 g/dL (3.2-4.8); Alkaline Phosphatase 104 U/L (46-116); Anion Gap 10 (5-15); Aspartate Aminotransferase 14 U/L (<34); BUN/Creatinine Ratio 21.6 (10.0-20.0); Carbon Dioxide 26 mmol/L (20-31); Chloride 104 mmol/L (98-107); Cholesterol 145 mg/dL (< 200); Glucose 96 mg/dL (74-106); HDL Cholesterol 46 mg/dL (40-59); LDL Cholesterol 79 mg/dL (< 100); Potassium 4.1 mmol/L (3.5-5.1); Sodium 140 mmol/L (136-145); Total Protein 7.3 g/dL (5.7-8.2); Triglycerides 74 mg/dL (< 150)
[2025-02-12 13:10] LABS: Bilirubin, Total 0.3 mg/dL (0.2-1.0)
[2025-02-12 13:11] LABS: Alanine Aminotransferase < 9 U/L (7-40); Blood Urea Nitrogen 27 mg/dL (9-23); Calcium 10.5 mg/dL (8.7-10.4)
== END 2025-02-10 17:00 | disposition home or self-care (01) ==
LOC: LAB 10:09
PROVIDERS: ATTEND Family Medicine
DX: I12.9 Hypertensive chronic kidney disease with stage 1 through stage 4 chronic kidney disease, or unspecified chronic kidney disease (principal); N18.9 Chronic kidney disease, unspecified; E11.22 Type 2 diabetes mellitus with diabetic chronic kidney disease; E11.65 Type 2 diabetes mellitus with hyperglycemia; E78.2 Mixed hyperlipidemia; E78.5 Hyperlipidemia, unspecified
CPT/HCPCS: 36415; 80053; 80061; 82043; 82570; 83036

== ENCOUNTER 2025-07-15 10:11 | Outpatient (CLI) | payer MEDICAID ==
[2025-07-15 10:57] LABS: Calcium 9.9 mg/dL (8.7-10.4); Chloride 103 mmol/L (98-107); Potassium 4.5 mmol/L (3.5-5.1); Sodium 141 mmol/L (136-145)
[2025-07-15 10:58] LABS: Anion Gap 8 (5-15); Carbon Dioxide 30 mmol/L (20-31)
[2025-07-15 11:03] LABS: BUN/Creatinine Ratio 19.0 (10.0-20.0); Blood Urea Nitrogen 19 mg/dL (9-23); Glucose 111 mg/dL (74-106); Triglycerides 54 mg/dL (< 150)
[2025-07-15 11:05] LABS: Cholesterol 163 mg/dL (< 200)
[2025-07-15 11:07] LABS: Microalb/Creat Ratio, Urine 6.00
[2025-07-15 11:10] LABS: HDL Cholesterol 81 mg/dL (40-59)
== END 2025-07-15 17:00 | disposition home or self-care (01) ==
LOC: LAB 10:11
PROVIDERS: ATTEND Family Medicine
DX: I12.9 Hypertensive chronic kidney disease with stage 1 through stage 4 chronic kidney disease, or unspecified chronic kidney disease (principal); E11.22 Type 2 diabetes mellitus with diabetic chronic kidney disease; N18.9 Chronic kidney disease, unspecified; E11.65 Type 2 diabetes mellitus with hyperglycemia; E78.2 Mixed hyperlipidemia
CPT/HCPCS: 36415; 80048; 80061; 82043; 82570; 83036